=== PATIENT | male | born 1935 | race Caucasian/White ===

== ENCOUNTER 2020-08-01 13:48 | Inpatient (IN) | payer MEDICARE, BC ==
--- NOTE | 2020-08-01 14:33 | ED ---
General Adult HPI - General Chief complaint: Dizziness Stated complaint: Vertigo Time Seen by Provider: 08/01/20 14:18 Source: patient, EMS Mode of arrival: EMS Limitations: no limitations - History of Present Illness Initial comments: Dictation was produced using [employer] dictation software. please excuse any grammatical, word or spelling errors. This patient was cared for during a federal and state declared state of emergency secondary to Covid 19 Chief Complaint: 84-year-old male transferred from [place] for persistent dizziness History of Present Illness: 84-year-old male is transferred via EMS from [facility] for persistent vertigo. Patient states that he woke this morning with some is dizziness that he was able to do his morning routine. Patient has multiple comorbid diabetes, GERD and dyslipidemia. Denies any history of CVA. Patient reports never having express anything like this before. Denies any focal neurologic deficits to his extremities. At [place] he had extensive workup performed including laboratory evaluation, CT and CT angios. Patient's labs and imaging studies mostly unremarkable. He was treated with Antivert and Xanax with minimal relief. The ROS documented in this emergency department record has been reviewed and confirmed by me. Those systems with pertinent positive or negative responses have been documented in the HPI. All other systems are other negative and/or noncontributory. PHYSICAL EXAM: General Impression: Alert and oriented x3, not in acute distress HEENT: Normocephalic atraumatic, extra-ocular movements intact, pupils equal and reactive to light bilaterally, mucous membranes moist. Cardiovascular: Heart regular rate and rhythm Chest: Able to complete full sentences, no retractions, no tachypnea Abdomen: abdomen soft, non-tender, non-distended, no organomegaly Musculoskeletal: Pulses present and equal in all extremities, no peripheral edema Motor: no focal deficits noted Neurological: CN II-XII grossly intact, no focal motor or sensory deficits noted, able to stand however seems to have a predilection to fall towards the right. Patient has right beating nystagmus with fast phase to the right with right lateral gaze. No test askew, negative head impulse test, able to stand however a little gait ataxic Skin: Intact with no visualized rashes Psych: Normal affect and mood ED course: 84-year-old male presents with intractable vertigo. All signs upon arrival are within acceptable limits. Transferred documentation was reviewed. Case is discussed with Dr. Hayden willing to accept patients care for admission. Neurology will be consulted. Review of Systems ROS Statement: Those systems with pertinent positive or pertinent negative responses have been documented in the HPI. ROS Other: All systems not noted in ROS Statement are negative. Past Medical History Past Medical History: Diabetes Mellitus, GERD/Reflux, Hyperlipidemia History of Any Multi-Drug Resistant Organisms: None Reported Past Surgical History: Back Surgery Additional Past Surgical History / Comment(s): Esophagus sx 2000 Past Psychological History: Anxiety, Depression Smoking Status: Never smoker Past Alcohol Use History: None Reported Past Drug Use History: None Reported General Exam Limitations: no limitations Course Vital Signs 08/01/20 14:03 Temperature 98.3 F Pulse Rate 59 L Respiratory 16 Rate Blood Pressure 121/68 O2 Sat by Pulse 99 Oximetry Disposition Clinical Impression: Vertigo Disposition: ADMITTED IP TO THIS HOSP Condition: Fair Referrals: Glenn Loyn NPC [Primary Care Provider] - 1-2 days Decision Time: 14:52
[2020-08-01] MEDS ORDERED: ACETAMINOPHEN TAB 325 MG TAB PO PRN ×2 (14:47→16:59)
[2020-08-01] MEDS ORDERED: ONDANSETRON 4 MG/2 ML VIAL IVP PRN ×2 (14:47→16:59)
[2020-08-01] MEDS ORDERED: NALOXONE 0.4 MG/ML 1 ML VIAL IV PRN (14:47)
[2020-08-01] MEDS ORDERED: SODIUM CHLORIDE 0.9% 1,000 ML IV SCH (15:00)
[2020-08-01 16:45] LABS: Glucose,Whole Blood 120 mg/dL (75-99)
[2020-08-01] MEDS ORDERED: MECLIZINE 25 MG TAB PO PRN (17:05)
--- NOTE | 2020-08-01 17:11 | P.HPIM ---
History of Present Illness H&P Date: 08/01/20 Chief Complaint: Dizziness This is a 84-year-old male with no significant past medical history will presented to an outside emergency room in [place] with worsening dizziness. Patient said that his symptoms started this morning around 7 AM when he was trying to get out of bed and start feeling dizzy and felt that the room is spinning around him. He laid back in bed and felt better but then when he tried to get up again his symptoms recurred. He described the feeling as the room is spinning around him and being dizzy and probably about to lose balance. Patient said that he tried himself downstairs and then called EMS. He presented to the emergency room in [place] where he underwent computed tomography scan of the head without contrast and CT angiogram of the head and neck there were both unremarkable for any acute findings. His lab work was within acceptable range. Patient was given a dose of meclizine and a dose of Ativan with minimal relief. He was transferred to our emergency room for neurology consultation. Patient otherwise denies any other symptoms. He denies any chest pain or palpitation. No diaphoresis or nausea. No similar symptoms in the past. 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 He reports eating and drinking normally at home and denies feeling dehydrated. He denies any flulike symptoms. No headache or vision change. No numbness or tingling anywhere. Review of Systems Review of system: 14 points review of systems were obtained and were negative except to what were mentioned in the HPI. Past Medical History Past Medical History: Diabetes Mellitus, GERD/Reflux, Hyperlipidemia History of Any Multi-Drug Resistant Organisms: None Reported Past Surgical History: Back Surgery Additional Past Surgical History / Comment(s): Esophagus sx 1999 Past Psychological History: Anxiety, Depression Smoking Status: Never smoker Past Alcohol Use History: None Reported Past Drug Use History: None Reported Medications and Allergies Home Medications Medication Instructions Recorded Confirmed Type Aspirin EC [Ecotrin Low Dose] 81 mg PO DAILY 08/01/20 08/01/20 History Nitroglycerin Sl Tabs [Nitrostat] 0.4 mg SUBLINGUAL Q5M PRN 08/01/20 08/01/20 History Oxybutynin Xl [Ditropan Xl] 5 mg PO DAILY 08/01/20 08/01/20 History Simvastatin [Zocor] 20 mg PO DAILY 08/01/20 08/01/20 History metFORMIN HCL 500 mg PO BID 08/01/20 08/01/20 History Allergies Allergy/AdvReac Type Severity Reaction Status Date / Time No Known Allergies Allergy Verified 08/01/20 15:09 Physical Exam Vitals: Vital Signs Temp Pulse Pulse Resp BP BP Pulse Ox 08/01/20 16:03 97.5 F L 50 L 16 123/87 98 08/01/20 15:44 98.2 F 53 L 16 138/78 99 08/01/20 15:13 98.1 F 53 L 14 142/88 100 08/01/20 14:03 98.3 F 59 L 16 121/68 99 Intake and Output 08/01/20 08/01/20 08/01/20 06:59 14:59 22:59 Output Total 300 Balance -300 Output: Urine 300 Other: Weight 63.503 kg General: The patient is awake and alert, in no distress Eye: there is normal conjunctiva bilaterally. Neck: The neck is supple, there is no JVD. Cardiovascular: Normal S1-S2, no S3-S4, no murmurs. Respiratory: Lungs clear to auscultation bilaterally Gastrointestinal: Abdomen is soft, nontender Musculoskeletal: There is no pedal edema. Neurological:. Speech is normal. Skin: Skin is warm and dry Results Labs: Abnormal Lab Results - Last 24 Hours (Table) 08/01/20 Range/Units 16:43 POC Glucose (mg/dL) 120 H (75-99) mg/dL Assessment and Plan Assessment: 1. Dizziness/vertigo, I would check orthostatic blood pressure. Discontinue Ditropan. Computed tomography scan of the head and computed tomography angiogram of the head and neck at the [facility] emergency room were both normal. Continue meclizine as needed. Neurology consulted by ER. Continue fall precaution. 2. Sinus bradycardia, patient was noted to have a heart rate of 40 on sociology faculty member. He denies any cardiac history. I would obtain an echocardiogram. Check thyroid function test. Consult cardiology for further evaluation. 3. Hyperlipidemia: On Zocor at home Today, I reviewed his lab work results from [place], CBC and BMP within normal range. Continue IV fluid hydration with normal saline at 75 mL per hour.
--- NOTE | 2020-08-01 18:08 | P.CNNES ---
History of Present Illness Consult date: 08/01/20 Requesting physician: Charanjit Rodríguez Reason for Consult: persistent vertigo History of Present Illness: This is an 84-year-old gentleman with medical history of dyslipidemia, diabetes, bilateral rotator cuff injury who was transferred from the [facility] for persistent vertigo. Patient states that he woke up this morning at 7am and tried to get out of bed and felt the "world is spining around him". He said he crawled out of bed and avoided walking. He said when he rested he felt better. He denies off diplopia, ringing in the ears, focal weakness, any sensory loss or visual disturbance. He denies of any difficulty getting her his words out or difficulty swallowing. He felt like when he gets up he is a swaying towards the right. He denies of any fever or any recent falls. He denied any similar episodes like this before. Denies of any history of strokes in the past. He does have chronic hearing loss for the last 34 years and has hearing aids. He was treated with Antivert and Xanax over at [facility] without any resolution She stated that he is on aspirin 81 mg at home as well as simvastatin but could not tell me exactly what was the dose. Workup at an outside hospital consisted of: Sinus bradycardia with a borderline first-degree AV block. Lateral ST changes are nonspecific. Ventricular rate is 54. CT of the head was reported as no evidence of acute intracranial abnormality. Nonspecific white matter changes and volume loss as described. There is a strong clinical concern for acute intracranial abnormality. MRI examination of the brain that should be considered for further evaluation. However, there are no deficits on neurological exam, then follow-up imaging that could be considered on a nonemergent outpatient basis as clinically warranted. White blood cell as 6.5 sodium was 137 potassium was 4.3, chloride is 103. BUN is 14, creatinine is 1.0. Glucose serum was 170. Again the patient was given the meclizine 25 mg once and all fours 0.25 mg once as well as he received the normal saline 500 mL once without any improvement. Review of Systems Review of system: The 12 point system was reviewed and apparent positive and negative per HPI. Past Medical History Past Medical History: Diabetes Mellitus, GERD/Reflux, Hyperlipidemia History of Any Multi-Drug Resistant Organisms: None Reported Past Surgical History: Back Surgery Additional Past Surgical History / Comment(s): Esophagus sx 1999 Past Psychological History: Anxiety, Depression Smoking Status: Never smoker Past Alcohol Use History: None Reported Past Drug Use History: None Reported Medications and Allergies Home Medications Medication Instructions Recorded Confirmed Type Aspirin EC [Ecotrin Low Dose] 81 mg PO DAILY 08/01/20 08/01/20 History Nitroglycerin Sl Tabs [Nitrostat] 0.4 mg SUBLINGUAL Q5M PRN 08/01/20 08/01/20 History Oxybutynin Xl [Ditropan Xl] 5 mg PO DAILY 08/01/20 08/01/20 History Simvastatin [Zocor] 20 mg PO DAILY 08/01/20 08/01/20 History metFORMIN HCL 500 mg PO BID 08/01/20 08/01/20 History Allergies Allergy/AdvReac Type Severity Reaction Status Date / Time No Known Allergies Allergy Verified 08/01/20 15:09 Physical Examination - Vital Signs Vital Signs: Vital Signs Temp Pulse Pulse Resp BP BP Pulse Ox 08/01/20 16:03 97.5 F L 50 L 16 123/87 98 08/01/20 15:44 98.2 F 53 L 16 138/78 99 08/01/20 15:13 98.1 F 53 L 14 142/88 100 08/01/20 14:03 98.3 F 59 L 16 121/68 99 Intake and Output 08/01/20 08/01/20 08/01/20 06:59 14:59 22:59 Other: Weight 63.503 kg GENERAL: The patient is lying in bed and is not in acute distress. CHEST: The heart rate is regular rate rhythm. No murmurs to auscultation. No carotid bruit bilaterally. LUNG: Clear to auscultation bilaterally no wheezing noted throughout. Not labored breathing. ABDOMEN/GI: Bowel sounds present in all 4 quadrants. No tenderness to palpation throughout. NEUROLOGICAL: Higher mental function: The patient is awake, alert, oriented to self, place and time. Patient is following commands. No aphasia and no neglect. Cranial nerves: The pupils are round, equal and reactive to light and accommodation. Visual alan are full to confrontation throughout. Extraocular movement is intact no nystagmus is noted. Facial sensation is normal to touch throughout. The facial strength is normal throughout. Hearing is decreased bilaterally to hand rub (chronic per patient). Tongue is midline and moved [id number] without any difficulty. No dysarthria is noted. Motor: Was attempted but patient felt dizzy. The strength is 5 over 5 throughout except proximal bilateral upper extremity was limited because of pain in shoulder from rotator tear but no focality noted. Normal tone and bulk. Cerebellum: Normal finger to nose heel to chin bilaterally. Sensation: Sensation is normal to touch throughout. Reflexes (right/left): 2+ throughout except ankles are 1+ bilaterally Plantars are downgoing bilaterally. Assessment and Plan Assessment: This is an 84-year-old gentleman was transferred from outside facility for persistent vertigo. Vertigo seems likely benign positional vertigo or labyrinthitis. Diabetes Dyslipidemia Plan: I will order MRI of the brain to rule out any acute ischemia especially in the peripheral circulation. Continue aspirin 81 mg milligrams daily. Currently the patient was started on Lipitor 10 mg daily by primary team. Primary chief team saw him on Antivert 25 mg 3 times a day when necessary I will cancel the order and place him on 25 mg twice a day scheduled 2-D echo was ordered by the primary team as well as the [facility]. I consulted the physical therapy and occupation therapy. Patient had the CT angiography of the neck and it was reported as no stenosis or occlusion. As well as the patient had CT angiography of the head and there is no occlusion. Therefore there is no need to repeat the the vascular study of the head and neck. The plan was discussed with the patient. Thank you for the consultation. Karthik Santana M.D. Neuro-hospitalist Time with Patient: Greater than 30
[2020-08-01] MEDS: INSULIN ASPART (NovoLOG) 100 UNIT/ML VIAL SQ SCH ×2 (19:03→20:56)
[2020-08-01] MEDS: SODIUM CHLORIDE 0.9% 1,000 ML IV SCH (19:04)
[2020-08-01 20:50] LABS: Glucose,Whole Blood 197 mg/dL (75-99)
[2020-08-01] MEDS: HEPARIN SODIUM,PORCINE 5,000 UNIT/ML 1 ML VIAL SQ SCH (20:56)
[2020-08-01] MEDS: MECLIZINE 25 MG TAB PO SCH (20:57)
[2020-08-02 06:21] LABS: Glucose,Whole Blood 111 mg/dL (75-99)
[2020-08-02] MEDS: SODIUM CHLORIDE 0.9% 1,000 ML IV SCH ×2 (06:50→18:23)
[2020-08-02] MEDS: INSULIN ASPART (NovoLOG) 100 UNIT/ML VIAL SQ SCH ×4 (08:32→21:17)
[2020-08-02] MEDS: MECLIZINE 25 MG TAB PO SCH ×2 (09:10→21:18)
[2020-08-02] MEDS: ASPIRIN 81 MG PO SCH (09:10)
[2020-08-02] MEDS: ATORVASTATIN 10 MG TAB PO SCH (09:10)
[2020-08-02] MEDS: HEPARIN SODIUM,PORCINE 5,000 UNIT/ML 1 ML VIAL SQ SCH ×2 (09:10→21:17)
--- NOTE | 2020-08-02 10:49 | P.CRDCN ---
History of Present Illness Consult date: 08/02/20 Reason for Consult (text): Dizziness Chief complaint: Dizziness History of present illness: This is a pleasant 84-year-old gentleman who follows with Dr. Storey in the [facility] office. He has a known history of diabetes, hypertension, hyperlipidemia, underwent a cardiac catheterization back in 2007, mild coronary artery disease documented at that time. He also has known aortic valve insufficiency. Most recent echocardiogram with Doppler study was performed at the [facility] in May of this year revealed a normal left ventricular systolic function. Moderate aortic regurgitation. Patient presented to [facility] with symptoms of dizziness. According to the patient, he woke up in the morning, tried to sit up in bed to stand and became extremely dizzy to the point where he could not stand up. He states that he lied back down on the bed, tried a few minutes later and the same symptoms persisted. For this reason he went to [facility] for further evaluation and treatment. According to the patient, at these times he feels like the room is spinning around him. He does get mild associated nausea with this. Blood pressure on arrival here 120/60 with a heart rate in the 50s, 99% on room air. Laboratory data from [facility] was reviewed, white blood cell count 6.5, hemoglobin 13.2, platelet count 159 sodium 137, potassium 4.3, BUN 14, creatinine 1.0. Magnesium 1.8, troponin 0.01. The patient was given some Antivert and Xanax at [facility] with minimal relief. His EKG there showed a sinus bradycardia with a first-degree AV block. Past Medical History Past Medical History: Diabetes Mellitus, GERD/Reflux, Hyperlipidemia Additional Past Medical History / Comment(s): sees Dr Aayush Larson in [facility] History of Any Multi-Drug Resistant Organisms: None Reported Past Surgical History: Back Surgery Additional Past Surgical History / Comment(s): Esophagus sx 2000 Past Anesthesia/Blood Transfusion Reactions: No Reported Reaction Past Psychological History: Anxiety, Depression Smoking Status: Never smoker Past Alcohol Use History: None Reported Past Drug Use History: None Reported - Past Family History Mother Family Medical History: Chest Pain / Angina, Myocardial Infarction ([place]) Additional Family Medical History / Comment(s): age 85 Father Family Medical History: Cancer Additional Family Medical History / Comment(s): pancreatic cancer age 90 Medications and Allergies Home Medications Medication Instructions Recorded Confirmed Type Aspirin EC [Ecotrin Low Dose] 81 mg PO DAILY 08/01/20 08/01/20 History Nitroglycerin Sl Tabs [Nitrostat] 0.4 mg SUBLINGUAL Q5M PRN 08/01/20 08/01/20 History Oxybutynin Xl [Ditropan Xl] 5 mg PO DAILY 08/01/20 08/01/20 History Simvastatin [Zocor] 20 mg PO DAILY 08/01/20 08/01/20 History metFORMIN HCL 500 mg PO BID 08/01/20 08/01/20 History Allergies Allergy/AdvReac Type Severity Reaction Status Date / Time No Known Allergies Allergy Verified 08/01/20 15:09 Physical Exam Vitals: Vital Signs Temp Pulse Pulse Pulse Pulse Pulse Resp 08/02/20 08:25 59 L 72 62 08/02/20 08:13 97.5 F L 52 L 16 08/02/20 02:38 97.9 F 50 L 18 08/01/20 21:00 98.1 F 62 16 08/01/20 16:03 97.5 F L 50 L 16 08/01/20 16:00 16 08/01/20 15:44 98.2 F 53 L 16 08/01/20 15:13 98.1 F 53 L 14 08/01/20 14:03 98.3 F 59 L 16 BP BP BP BP BP Pulse Ox 08/02/20 08:25 127/65 128/70 106/58 08/02/20 08:13 114/69 98 08/02/20 02:38 111/78 97 08/01/20 21:00 113/67 96 08/01/20 16:03 123/87 98 08/01/20 16:00 08/01/20 15:44 138/78 99 08/01/20 15:13 142/88 100 08/01/20 14:03 121/68 99 Intake and Output 08/01/20 08/02/20 08/02/20 22:59 06:59 14:59 Intake Total 200 Output Total 550 200 200 Balance -350 -200 -200 Intake: Oral 200 Output: Urine 550 200 200 Other: Voiding Method Urinal Urinal Weight 63.503 kg PHYSICAL EXAMINATION: GENERAL: 84-year-old gentleman in no acute distress at the time of my examination HEENT: Head is atraumatic, normocephalic. Pupils equal, round. Sclera anicteric. Conjunctiva are clear. Mucous membranes of the mouth are moist. Neck is supple. There is no elevated jugular venous pressure. No carotid bruit is heard. HEART EXAMINATION: Heart S1, S2 normal. No murmur or gallop heard. CHEST EXAMINATION: Lungs are clear to auscultation and precussion. No chest wall tenderness is noted on palpation or with deep breathing. ABDOMEN: Soft, nontender. Bowel sounds are heard. No organomegaly noted. EXTREMITIES: 2+ peripheral pulses with no evidence of peripheral edema and no calf tenderness noted. NEUROLOGIC patient is awake, alert and oriented 3 . Results Current Medications Generic Name Dose Route Start Last Admin Trade Name Freq PRN Reason Stop Dose Admin Acetaminophen 650 mg 08/01/20 14:47 Acetaminophen Tab 325 Mg Tab PO Q6HR PRN Mild Pain or Fever > 100.5 Acetaminophen 650 mg 08/01/20 16:59 Acetaminophen Tab 325 Mg Tab PO Q6HR PRN Fever and/ or Mild Pain Aspirin 81 mg 08/02/20 09:00 08/02/20 09:10 Aspirin 81 Mg PO 81 mg DAILY SAMANTHA Administration Atorvastatin Calcium 10 mg 08/02/20 09:00 08/02/20 09:10 Atorvastatin 10 Mg Tab PO 10 mg DAILY SAMANTHA Administration Heparin Sodium (Porcine) 5,000 unit 08/01/20 21:00 08/02/20 09:10 Heparin Sodium,Porcine 5,000 Unit/Ml 1 Ml Vial SQ 5,000 unit Q12HR SAMANTHA Administration Sodium Chloride 1,000 mls @ 75 mls/hr 08/01/20 17:00 08/02/20 06:50 Saline 0.9% IV 75 mls/hr .[id number] SAMANTHA Administration Insulin Aspart 0 unit 08/01/20 17:30 08/02/20 08:32 Insulin Aspart (Novolog) 100 Unit/Ml Vial SQ Not Given ACHS SAMANTHA Protocol Meclizine HCl 25 mg 08/01/20 21:00 08/02/20 09:10 Meclizine 25 Mg Tab PO 25 mg BID SAMANTHA Administration Naloxone HCl 0.2 mg 08/01/20 14:47 Naloxone 0.4 Mg/Ml 1 Ml Vial IV Q2M PRN Opioid Reversal Ondansetron HCl 4 mg 08/01/20 16:59 Ondansetron 4 Mg/2 Ml Vial IVP Q6HR PRN Nausea And Vomiting Intake and Output 08/01/20 08/02/20 08/02/20 22:59 06:59 14:59 Intake Total 200 Output Total 550 200 200 Balance -350 -200 -200 Intake: Oral 200 Output: Urine 550 200 200 Other: Voiding Method Urinal Urinal Weight 63.503 kg EKG Interpretations (text) EKG shows a sinus bradycardia with a first-degree AV block Assessment and Plan Plan: Assessment and plan #1 dizziness, suggestive of vertigo. #2 diabetes #3 sinus bradycardia with first-degree AV block, heart rates being maintained in the 50s #4 hypertension #5 hyperlipidemia #6 aortic insufficiency Plan We will check orthostatic heart rate and blood pressure every shift. Obtain an echocardiogram with Doppler study. Continue to monitor for any significant tachycardia or bradycardia arrhythmias. Recommend Antivert as a regular scheduled dose. Further recommendations to follow. DNP note has been reviewed, I agree with a documented findings and plan of care. Patient was seen and examined.
--- NOTE | 2020-08-02 10:54 | MR ---
EXAMINATION TYPE: MR brain wo con DATE OF EXAM: 08/02/2020 COMPARISON: Outside CT brain from yesterday. HISTORY: Stroke: dizziness. Code stroke one day earlier. TECHNIQUE: Multiplanar, multisequence imaging of the brain and brainstem is performed without IV cont rast. FINDINGS: Diffusion weighted images demonstrate no evidence of a recent infarct or other diffusion abnormality. Diffuse ventricular and sulcal prominence. Focal and confluent areas of T2 hyperintensity greatest in the deep and periventricular white matter. There is no worrisome extra-axial fluid collection. Midline structures demonstrate normal morphology. The craniocervical junction appears within normal limits. Normal vascular flow voids are present. Dominant left vertebral artery. Patchy fluid in the i nferior left mastoid air cells. More prominent fluid in the right mastoid air cells. Mild mucosal thi ckening involving ethmoid sinuses bilaterally. The visualized sinuses are otherwise clear and the patti bes are intact. IMPRESSION: 1. No MRI evidence for a recent infarct. 2. Background moderate diffuse cerebral atrophy and advanced chronic small vessel ischemic change. 3. Possible right greater than left mastoiditis, correlate clinically.
[2020-08-02 11:16] LABS: Glucose,Whole Blood 130 mg/dL (75-99)
[2020-08-02 12:37] LABS: Basophils # (A) 0.1 k/uL (0-0.2); Basophils % (A) 1 %; Eosinophils # (A) 0.2 k/uL (0-0.7); Eosinophils % (A) 2 %; HCT 41.8 % (39.0-53.0); HGB 14.1 gm/dL (13.0-17.5); Lymphocytes # (A) 1.3 k/uL (1.0-4.8); Lymphocytes % (A) 17 %; MCH 33.6 pg (25.0-35.0); MCHC 33.7 g/dL (31.0-37.0); Mean Platelet Volume 7.6; Monocytes # (A) 0.4 k/uL (0-1.0); Monocytes % (A) 6 %; Neutrophils # (A) 5.5 k/uL (1.3-7.7); Neutrophils % (A) 73 %; Platelet Count 164 k/uL (150-450); RBC 4.18 m/uL (4.30-5.90); RDW 11.8 % (11.5-15.5); WBC 7.5 k/uL (3.8-10.6)
[2020-08-02 12:49] LABS: ALT 19 U/L (4-49); AST 29 U/L (17-59); African American GFR (CKD) >90 (>60 ml/min/1.73 sqM); Albumin 3.9 g/dL (3.5-5.0); Alkaline Phosphatase 65 U/L (38-126); Anion Gap 5 mmol/L; Blood Urea Nitrogen 14 mg/dL (9-20); Carbon Dioxide 28 mmol/L (22-30); Chloride 103 mmol/L (98-107); Glucose 134 mg/dL (74-99); Magnesium 1.9 mg/dL (1.6-2.3); Non-African American GFR(CKD) 82 (>60 ml/min/1.73 sqM); Potassium 4.5 mmol/L (3.5-5.1); Sodium 136 mmol/L (137-145); Total Bilirubin 1.2 mg/dL (0.2-1.3); Total Protein 6.8 g/dL (6.3-8.2)
--- NOTE | 2020-08-02 15:57 | P.PN ---
Subjective Progress Note Date: 08/02/20 Principal diagnosis: Vertigo Objective - Vital Signs Vital signs: Vital Signs Temp 97.5 F L 08/02/20 08:13 Pulse 62 08/02/20 08:25 Resp 16 08/02/20 08:13 BP 106/58 08/02/20 08:25 Pulse Ox 98 08/02/20 08:13 Intake & Output 08/01/20 08/02/20 08/02/20 18:59 06:59 18:59 Intake Total 200 Output Total 300 450 200 Balance -100 -450 -200 Weight 63.503 kg Intake: Oral 200 Output: Urine 300 450 200 Other: Voiding Method Urinal Urinal - Constitutional General appearance: Present: no acute distress - Respiratory Respiratory: bilateral: CTA - Cardiovascular Rhythm: regular - Gastrointestinal General gastrointestinal: Present: normal bowel sounds - Integumentary Integumentary: Present: normal - Musculoskeletal Musculoskeletal: Present: generalized weakness - Labs CBC & Chem 7: 08/02/20 12:22 08/02/20 12:22 Labs: Abnormal Lab Results - Last 24 Hours (Table) 08/01/20 08/01/20 08/02/20 Range/Units 16:43 20:48 06:20 POC Glucose (mg/dL) 120 H 197 H 111 H (75-99) mg/dL Assessment and Plan (1) Vertigo Narrative/Plan: patient still symptomatic MRI without evidence of posterior stroke, worked with PT/OT will continue to monitor; patient not clinically stable for discharge Current Visit: Yes Status: Acute Code(s): R42 - DIZZINESS AND GIDDINESS SNOMED Code(s): 217590534 (2) Sinus bradycardia Narrative/Plan: asymptomatic appreciate cardiology input echo planned Current Visit: Yes Status: Acute Code(s): R00.1 - BRADYCARDIA, UNSPECIFIED SNOMED Code(s): 11845744 (3) Hyperlipidemia Narrative/Plan: continue statin Current Visit: Yes Status: Acute Code(s): E78.5 - HYPERLIPIDEMIA, UNSPECIFIED SNOMED Code(s): 83483175
[2020-08-02 16:49] LABS: Glucose,Whole Blood 120 mg/dL (75-99)
--- NOTE | 2020-08-02 16:57 | P.PN ---
Subjective Progress Note Date: 08/02/20 Patient was seen at bedside and he stated that he feels 75% better today compared to yesterday. He has not had any nausea, vomiting. He does feel like the room is spinning the mostly with movement but again better today compared to yesterday. Objective - Vital Signs Vital signs: Vital Signs Temp 97.0 F L 08/02/20 15:00 Pulse 69 08/02/20 15:00 Resp 16 08/02/20 15:00 BP 111/57 08/02/20 15:00 Pulse Ox 97 08/02/20 15:00 Intake & Output 08/01/20 08/02/20 08/02/20 18:59 06:59 18:59 Intake Total 200 1560 Output Total 300 450 900 Balance -100 -450 660 Weight 63.503 kg Intake: Intake, IV Titration 600 Amount Sodium Chloride 0.9% 1, 600 000 ml @ 75 mls/hr IV . [id number] [facility] Rx#:[id number] Oral 200 960 Output: Urine 300 450 900 Other: Voiding Method Urinal Urinal - Exam GENERAL: The patient is lying in bed and is not in acute distress. CHEST: The heart rate is regular rate rhythm. No murmurs to auscultation. No carotid bruit bilaterally. NEUROLOGICAL: Higher mental function: The patient is awake, alert, oriented to self, place and time. Patient is following commands. No aphasia and no neglect. Cranial nerves: The pupils are round, equal and reactive to light and acco mmodation. Visual alan are full to confrontation throughout. Extraocular movement is intact no nystagmus is noted. Facial sensation is normal to touch throughout. The facial strength is normal throughout. Hearing is decreased bilaterally to hand rub (chronic per patient). Tongue is midline and moved [id number] without any difficulty. No dysarthria is noted. Motor: W The strength is 5 over 5 throughout except proximal bilateral upper extremity was limited because of pain in shoulder from rotator tear but no focality noted. Normal tone and bulk. Cerebellum: Normal finger to nose bilaterally. Sensation: Sensation is normal to touch throughout. Reflexes (right/left): 2+ throughout except ankles are 1+ bilaterally Plantars are downgoing bilaterally. - Labs CBC & Chem 7: 08/02/20 12:22 08/02/20 12:22 Labs: Abnormal Lab Results - Last 24 Hours (Table) 08/01/20 08/02/20 08/02/20 Range/Units 20:48 06:20 11:15 RBC (4.30-5.90) m/uL Sodium (137-145) mmol/L Glucose (74-99) mg/dL POC Glucose (mg/dL) 197 H 111 H 130 H (75-99) mg/dL 08/02/20 08/02/20 08/02/20 Range/Units 12:22 12:22 16:48 RBC 4.18 L (4.30-5.90) m/uL Sodium 136 L (137-145) mmol/L Glucose 134 H (74-99) mg/dL POC Glucose (mg/dL) 120 H (75-99) mg/dL Assessment and Plan Assessment: This is an 84-year-old gentleman was transferred from outside facility for persistent vertigo. Acute Vertigo seems likely benign positional vertigo or labyrinthitis. Diabetes Dyslipidemia Plan: MRI of the brain was ordered to rule out any peripheral circulation stroke. MRI of the brain was reported as no MRI evidence for recent infarct. Background moderate diffuse cerebral atrophy and advanced chronic small vessel ischemic change. Possible right greater than left mastoiditis, correlate clinically. Continue aspirin 81 mg milligrams daily. Currently on Lipitor 10 mg daily by primary team. Continue Antivert 25 mg 2 times a day scheduled TSH: 2.23 which is within normal limits. Continue physical therapy and occupation therapy. Patient had the CT angiography of the neck and it was reported as no stenosis or occlusion. As well as the patient had CT angiography of the head and there is no occlusion. Therefore there is no need to repeat the the vascular study of the head and neck. The plan was discussed with the patient. If the patient remains to improve by tomorrow, then he is clear for discharge tomorrow home from a neurology perspective. Patient needs to follow-up with the ENT as outpatient within 2 weeks upon discharge. Karthik Santana M.D. Neuro-hospitalist Time with Patient: Less than 30
[2020-08-02] MEDS ORDERED: CALCIUM CARBONATE 500 MG CHEWABLE PO PRN (20:38)
[2020-08-02 21:17] LABS: Glucose,Whole Blood 98 mg/dL (75-99)
[2020-08-03 04:12] VITALS: TEMP 98.2
[2020-08-03 06:49] LABS: Glucose,Whole Blood 120 mg/dL (75-99)
[2020-08-03] MEDS: INSULIN ASPART (NovoLOG) 100 UNIT/ML VIAL SQ SCH ×2 (06:55→12:36)
[2020-08-03 07:44] VITALS: BP 124/69; PULSE 77; RESP 14
[2020-08-03] MEDS: ASPIRIN 81 MG PO SCH (10:01)
[2020-08-03] MEDS: MECLIZINE 25 MG TAB PO SCH (10:01)
[2020-08-03] MEDS: ATORVASTATIN 10 MG TAB PO SCH (10:01)
[2020-08-03] MEDS: SODIUM CHLORIDE 0.9% 1,000 ML IV SCH (10:01)
[2020-08-03] MEDS: HEPARIN SODIUM,PORCINE 5,000 UNIT/ML 1 ML VIAL SQ SCH (10:01)
--- NOTE | 2020-08-03 10:36 | ECHOF ---
Referral Reason:Bradycardia, dizziness MEASUREMENTS -------- HEIGHT: 175.3 cm WEIGHT: 63.5 kg BP: 117/62 IVSd: 1.3 cm (0.6 - 1.1) LVIDd: 3.4 cm (3.9 - 5.3) LVPWd: 1.2 cm (0.6 - 1.1) EDV(Teich): 47 ml IVSs: 1.3 cm LVIDs: 2.6 cm LVPWs: 1.5 cm %IVS Thck: -4 % ESV(Teich): 24 ml EF(Teich): 49 % %FS: 24 % SV(Teich): 23 ml RVIDd: 2.9 cm (< 3.3) LALs A4C: 6.5 cm LAAs A4C: 21.0 cm LAESV A-L A4C: 58 ml LAESV MOD A4C: 59 ml LALs A2C: 6.0 cm LAAs A2C: 17.8 cm LAESV A-L A2C: 45 ml LAESV MOD A2C: 43 ml LAESV(A-L): 53 ml LAESV Index (A-L): 29.79 ml/m Ao Diam: 3.4 cm (2.0 - 3.7) AV Cusp: 2.2 cm (1.5 - 2.6) EPSS: 0.4 cm MV E Joseph: 0.86 m/s MV DecT: 274 ms MV Dec Titus: 3.1 m/s MV A Joseph: 0.85 m/s MV E/A Ratio: 1.02 MV PHT: 79 ms LVOT Vmax: 0.86 m/s LVOT maxP.97 mmHg AV Vmax: 1.17 m/s AV maxP.43 mmHg AR Vmax: 4.07 m/s AR maxP.42 mmHg AR PHT: 668 ms AR Dec Time: 2305 ms AR Dec Titus: 1.8 m/s TR Vmax: 2.37 m/s TR maxP.46 mmHg RAP: 5.00 mmHg RVSP: 27.46 mmHg MV EF SLOPE: 61.55 mm/s (70 - 150) MV EXCURSION: 14.05 mm (> 18.000) FINDINGS -------- Resting bradycardia (HR<60bpm). This was a technically adequate study. The left ventricular size is normal. There is mild concentric left ventricular hypertrophy. Overa ll left ventricular systolic function is low-normal with, an EF between 50 - 55 %. The diastolic fi lling pattern is normal for the age of the patient 9.92. The right ventricle is normal in size. LA is midly dilated 29-33ml/m2. The right atrial size is normal. Interatrial and interventricular septum intact. The aortic valve is trileaflet and appears structurally normal. There is mild aortic valve sclerosi s. There is jbmw-[id number]-[id number] aortic regurgitation. Mild mitral regurgitation is present. Mild tricuspid regurgitation present. There is no evidence of pulmonary hypertension. The right v entricular systolic pressure, as measured by Doppler, is 27.46mmHg. There is no pulmonic regurgitation present. The aortic root size is normal. IVC Not well visulized. There is no pericardial effusion. CONCLUSIONS -------- 1. The left ventricular size is normal. 2. There is mild concentric left ventricular hypertrophy. 3. Overall left ventricular systolic function is low-normal with, an EF between 50 - 55 %. 4. The diastolic filling pattern is normal for the age of the patient 9.92 5. LA is midly dilated 29-33ml/m2. 6. There is mild aortic valve sclerosis. 7. There is tjty-pg-mhywauon aortic regurgitation. 8. Mild mitral regurgitation is present. 9. Mild tricuspid regurgitation present. FRONT DESK OFFICER: Raegan Jimenez RDCS
--- NOTE | 2020-08-03 10:55 | P.PN ---
Subjective Progress Note Date: 08/03/20 This is a pleasant 84-year-old gentleman who follows with Dr. Storey in the [facility] office. He has a known history of diabetes, hypertension, hyperlipidemia, underwent a cardiac catheterization back in 2007, mild coronary artery disease documented at that time. He also has known aortic valve insufficiency. Most recent echocardiogram with Doppler study was performed at the [facility] in May of this year revealed a normal left ventricular systolic function. Moderate aortic regurgitation. Patient presented to [facility] with symptoms of dizziness. According to the patient, he woke up in the morning, tried to sit up in bed to stand and became extremely dizzy to the point where he could not stand up. He states that he lied back down on the bed, tried a few minutes later and the same symptoms persisted. For this reason he went to [facility] for further evaluation and treatment. According to the patient, at these times he feels like the room is spinning around him. He does get mild associated nausea with this. Blood pressure on arrival here 120/60 with a heart rate in the 50s, 99% on room air. Laboratory data from [facility] was reviewed, white blood cell count 6.5, hemoglobin 13.2, platelet count 159 sodium 137, potassium 4.3, BUN 14 , creatinine 1.0. Magnesium 1.8, troponin 0.01. The patient was given some Antivert and Xanax at [facility] with minimal relief. His EKG there showed a sinus bradycardia with a first-degree AV block. 08/03/2020 Patient seen and examined this morning, he does feel that his dizziness is somewhat improved. This could be secondary to the addition of Antivert. Echocardiogram with Doppler study revealed a normal LV function, moderate aortic regurg. No evidence of orthostatic hypotension. Blood pressure this morning 124/60 with a heart rate of 70, 96% on room air. Patient is noted occasionally on the monitor to have pauses of 1-1/2-2 seconds. Objective - Vital Signs Vital signs: Vital Signs Temp 98.2 F 08/03/20 07:43 Pulse 77 08/03/20 07:43 Resp 14 08/03/20 07:43 BP 124/69 08/03/20 07:43 Pulse Ox 96 08/03/20 07:43 Intake & Output 08/02/20 08/03/20 08/03/20 18:59 06:59 18:59 Intake Total 1560 100 Output Total 900 2675 Balance 660 -2575 Intake: Intake, IV Titration 600 Amount Sodium Chloride 0.9% 1, 600 000 ml @ 75 mls/hr IV . [id number] [facility] Rx#:[id number] Oral 960 100 Output: Urine 900 2675 Other: Voiding Method Urinal Urinal # Voids 6 1 - Exam PHYSICAL EXAMINATION: GENERAL: 87-year-old female in no acute distress at the time of my examination HEENT: Head is atraumatic, normocephalic. Pupils equal, round. Sclera anicteric. Conjunctiva are clear. Mucous membranes of the mouth are moist. Neck is supple. There is no elevated jugular venous pressure. No carotid bruit is heard. HEART EXAMINATION: Heart S1, S2 normal. No murmur or gallop heard. CHEST EXAMINATION: Lungs are clear to auscultation and precussion. No chest wall tenderness is noted on palpation or with deep breathing. ABDOMEN: Soft, nontender. Bowel sounds are heard. No organomegaly noted. EXTREMITIES: 2+ peripheral pulses with no evidence of peripheral edema and no calf tenderness noted. NEUROLOGIC patient is awake, alert and oriented 3 . - Labs CBC & Chem 7: 08/02/20 12:22 08/02/20 12:22 Labs: Abnormal Lab Results - Last 24 Hours (Table) 08/02/20 08/02/20 08/02/20 Range/Units 11:15 12:22 12:22 RBC 4.18 L (4.30-5.90) m/uL Sodium 136 L (137-145) mmol/L Glucose 134 H (74-99) mg/dL POC Glucose (mg/dL) 130 H (75-99) mg/dL 08/02/20 08/03/20 Range/Units 16:48 06:47 RBC (4.30-5.90) m/uL Sodium (137-145) mmol/L Glucose (74-99) mg/dL POC Glucose (mg/dL) 120 H 120 H (75-99) mg/dL Assessment and Plan Plan: Assessment and plan #1 dizziness, suggestive of vertigo. #2 diabetes #3 sinus bradycardia with first-degree AV block, heart rates being maintained in the 50s #4 hypertension #5 hyperlipidemia #6 aortic insufficiency Plan From cardiology's perspective, patient may be able to be discharged home today. We would recommend that he wear a 30 day event monitor on discharge and continue the twice a day dose of antevert. Follow-up appointment in the office with Dr. Larson and Nancy. DNP note has been reviewed, I agree with a documented findings and plan of care. Patient was seen and examined.
[2020-08-03 12:01] LABS: Glucose,Whole Blood 127 mg/dL (75-99)
--- NOTE | 2020-08-03 15:13 | P.PN ---
Subjective Progress Note Date: 08/03/20 Patient was seen at bedside and he said that his dizziness is resolved. He feels much better today compared that to his initial presentation. Denies any diplopia, weakness, numbness, visual disturbance. Objective - Vital Signs Vital signs: Vital Signs Temp 98.2 F 08/03/20 07:43 Pulse 77 08/03/20 07:43 Resp 14 08/03/20 07:43 BP 124/69 08/03/20 07:43 Pulse Ox 96 08/03/20 07:43 Intake & Output 08/02/20 08/03/20 08/03/20 18:59 06:59 18:59 Intake Total 1560 100 Output Total 900 2675 Balance 660 -2575 Intake: Intake, IV Titration 600 Amount Sodium Chloride 0.9% 1, 600 000 ml @ 75 mls/hr IV . [id number] [facility] Rx#:[id number] Oral 960 100 Output: Urine 900 2675 Other: Voiding Method Urinal Urinal # Voids 6 1 - Exam GENERAL: The patient is lying in bed and is not in acute distress. CHEST: The heart rate is regular rate rhythm. No murmurs to auscultation. No carotid bruit bilaterally. NEUROLOGICAL: Higher mental function: The patient is awake, alert, oriented to self, place and time. Patient is following commands. No aphasia and no neglect. Cranial nerves: The pupils are round, equal and reactive to light and accommodation. Visual alan are full to confrontation throughout. Extraocular movement is intact no nystagmus is noted. Facial sensation is normal to touch throughout. The facial strength is normal throughout. Hearing is decreased bilaterally to hand rub (chronic per patient). Tongue is midline and moved [id number] without any difficulty. No dysarthria is noted. Motor: The strength is 5 over 5 throughout except proximal bilateral upper extr emity was limited because of pain in shoulder from rotator tear but no focality noted. Normal tone and bulk. Cerebellum: Normal finger to nose bilaterally. Sensation: Sensation is normal to touch throughout. Reflexes (right/left): 2+ throughout except ankles are 1+ bilaterally Plantars are downgoing bilaterally. - Labs CBC & Chem 7: 08/02/20 12:22 08/02/20 12:22 Labs: Abnormal Lab Results - Last 24 Hours (Table) 08/02/20 08/03/2008/03/20 Range/Units 16:48 06:47 11:59 POC Glucose (mg/dL) 120 H 120 H 127 H (75-99) mg/dL Assessment and Plan Assessment: This is an 84-year-old gentleman was transferred from outside facility for pers istent vertigo. Acute Vertigo seems likely benign positional vertigo or labyrinthitis---resolved. Diabetes Dyslipidemia Plan: MRI of the brain was ordered to rule out any peripheral circulation stroke. MRI of the brain was reported as no MRI evidence for recent infarct. Background moderate diffuse cerebral atrophy and advanced chronic small vessel ischemic change. Possible right greater than left mastoiditis, correlate clinically. Continue aspirin 81 mg milligrams daily. Currently on Lipitor 10 mg daily by primary team. Continue Antivert 25 mg 2 times a day scheduled TSH: 2.23 which is within normal limits. Continue physical therapy and occupation therapy. Patient had the CT angiography of the neck and it was reported as no stenosis or occlusion. As well as the patient had CT angiography of the head and there is no occlusion. Therefore there is no need to repeat the the vascular study of the head and neck. The plan was discussed with the patient. From the neurology perspective there is no additional workup needed. The patient's symptoms of dizziness has resolved. Patient needs to follow-up with the ENT as outpatient within 2 weeks upon disch argeLeonel Santana M.D. Neuro-hospitalist Time with Patient: Less than 30
--- NOTE | 2020-08-03 22:13 | P.DS ---
Providers Date of admission: 08/02/20 11:45 Expected date of discharge: 08/03/20 Attending physician: Maria A Hayden Consults: 08/01/20 14:26 Consult Physician Routine Consulting Provider: Karthik Santana Consult Reason/Comments: persistent vertigo Do you want consulting provider notified?: Yes 08/01/20 17:01 Consult Physician Routine Consulting Provider: Michael Larson Consult Reason/Comments: Bradycardia, heart rate 40, dizziness Do you want consulting provider notified?: Yes Primary care physician: [facility] Course: Discharge Diagnosis: Vertigo likely benign positional vertigo or labyrinthitis Bradycardia Diabetes mellitus type 2 Dyslipidemia Hospital Course: Patient is an 84-year-old male with a history of diabetes, GERD, and dyslipidemia who presented to an outside emergency department in [place] with dizziness. In the ER he underwent a CT of the head without contrast and CT angiogram of head and neck fold which were unremarkable for any acute findings. Lab work was within acceptable range. His given a dose of meclizine and Ativan and had minimal relief. He was ultimately transferred here for neurology consultation. He was placed in observation. He was seen by neurology who felt it was prudent to rule out posterior circulation stroke. He subsequently underwent an MRI of the brain which did not demonstrate any recent infarct, moderate diffuse cerebral atrophy with advanced chronic small vessel ischemic changes were noted to be present. Possible right greater than left mastoiditis. Echocardiogram showed preserved ejection fraction with mild to moderate tricuspid regurgitation. He is also noted to have bradycardia. He was seen by cardiology. Orthostatics were negative. Cardiology recommended outpatient 30 day Holter monitor and follow up with Dr. Storey. He was continued on Antivert and had significant improvement. By the morning of 08/03 he felt almost back to normal. He was able to sit up and ambulate without difficulty. He was determined stable for discharge home. He will complete a seven-day course of Antivert. He'll follow up with his primary care physician if his symptoms persist after discontinuing Antivert I had suggested ENT follow-up. Patient is in agreement. He was also taken off of oxybutynin. Patient seen and examined at bedside. Dizziness is much improved, no lightheadedness, hematochezia pass out, no chest pain. Vital signs reviewed and stable. General: non toxic, no distress, appears at stated age Derm: warm, dry Head: atraumatic, normocephalic, symmetric Eyes: EOMI, no lid lag, anicteric sclera Mouth: no lip lesion, mucus membranes moist Cardiovascular: S1-S2 bradycardic, no murmur, positive posterior tibial pulse bilateral, Lungs: CTA bilateral, no rhonchi, no rales , no accessory muscle use Abdominal: soft, nontender to palpation, no guarding, no appreciable organomegaly Ext: no gross muscle atrophy, no edema, no contractures Neuro: CN II-XI grossly intact, no focal neuro deficits Psych: Alert, oriented, appropriate affect A total of 25 minutes of time were spent preparing this complex discharge summary . Patient Condition at Discharge: Fair Plan - Discharge Summary New Discharge Prescriptions: New Meclizine [Antivert] 25 mg PO BID #14 tab Continue metFORMIN HCL 500 mg PO BID Simvastatin [Zocor] 20 mg PO DAILY Nitroglycerin Sl Tabs [Nitrostat] 0.4 mg SUBLINGUAL Q5M PRN PRN Reason: Chest Pain Aspirin EC [Ecotrin Low Dose] 81 mg PO DAILY Discontinued Oxybutynin Xl [Ditropan Xl] 5 mg PO DAILY Discharge Medication List Aspirin EC [Ecotrin Low Dose] 81 mg PO DAILY 08/01/20 [History] Nitroglycerin Sl Tabs [Nitrostat] 0.4 mg SUBLINGUAL Q5M PRN 08/01/20 [History] Simvastatin [Zocor] 20 mg PO DAILY 08/01/20 [History] metFORMIN HCL 500 mg PO BID 08/01/20 [History] Meclizine [Antivert] 25 mg PO BID #14 tab 08/03/20 [Rx] Follow up Appointment(s)/Referral(s): Glenn Lyon NPC [REFERRING] - 1-2 days Michael Larson MD [STAFF PHYSICIAN] - 08/19/20 2:00 pm (Follow up with Dr. Larson at the [place] Location as scheduled for you) Patient Instructions/Handouts: Vertigo (GEN) Activity/Diet/Wound Care/Special Instructions: Activity: as tolerated Diet: heart healthy, carb consistent Special Instructions: [facility] to place heart monitor Trial of antivert for 7 days if symptoms reoccur then will need an evaluation by ENT Discharge Disposition: HOME SELF-CARE
== END 2020-08-03 14:44 | disposition home or self-care (01) | DRG 149 ==
LOC: EC 13:48 → 1SOBS 14:47 → OBSVTOIN 08-02 11:45 → 1SOBS 08-02 23:21
PROVIDERS: ADMIT Internal Medicine; ATTEND Internal Medicine
DX: H81.10 Benign paroxysmal vertigo, unspecified ear (principal); E11.9 Type 2 diabetes mellitus without complications; E78.5 Hyperlipidemia, unspecified; F32.9 Major depressive disorder, single episode, unspecified; F41.9 Anxiety disorder, unspecified; H83.09 Labyrinthitis, unspecified ear; I07.1 Rheumatic tricuspid insufficiency; H91.90 Unspecified hearing loss, unspecified ear; I25.10 Atherosclerotic heart disease of native coronary artery without angina pectoris; I10 Essential (primary) hypertension; I35.1 Nonrheumatic aortic (valve) insufficiency; I44.0 Atrioventricular block, first degree; K21.9 Gastro-esophageal reflux disease without esophagitis; Z79.82 Long term (current) use of aspirin; Z79.84 Long term (current) use of oral hypoglycemic drugs; Z79.899 Other long term (current) drug therapy; Z80.0 Family history of malignant neoplasm of digestive organs; Z82.49 Family history of ischemic heart disease and other diseases of the circulatory system
CPT/HCPCS: 70551; 80053; 83735; 84443; 85025; 93306; 96360; 99284

== ENCOUNTER 2021-04-30 00:47 | Inpatient (IN) | payer MEDICARE, BC ==
[2021-04-30] MEDS ORDERED: NALOXONE 0.4 MG/ML 1 ML VIAL IV PRN ×2 (01:18→13:57)
--- NOTE | 2021-04-30 01:18 | ED ---
Abdominal Pain HPI - General Stated Complaint: Abd Pain Time Seen by Provider: 04/30/21 00:51 Source: patient, EMS, RN notes reviewed Mode of arrival: EMS Limitations: no limitations - History of Present Illness Initial Comments: Patient is an 85-year-old male that presents to the emergency room [place]. He notes that he is having abdominal pain for the past several days. He notes that he was scanned at [place]. Scan came back showing gastric outlet obstruction. Labs were unremarkable. Labs were resulted at 8 PM on 04/29/2021 patient didn't come with a disc of his computed tomography scan. Patient does follow Dr. Larson for GI issues. NG tube was placed. Patient denied any other complaints or issues at the time of exam. He denied any chest pain shortness of breath headache fever fatigue chills. - Related Data Home Medications Medication Instructions Recorded Confirmed Aspirin EC [Ecotrin Low Dose] 81 mg PO DAILY 08/01/20 08/01/20 Nitroglycerin Sl Tabs [Nitrostat] 0.4 mg SUBLINGUAL Q5M PRN 08/01/20 08/01/20 Simvastatin [Zocor] 20 mg PO DAILY 08/01/20 08/01/20 metFORMIN HCL [Glucophage] 500 mg PO BID 08/01/20 08/01/20 Previous Rx's Medication Instructions Recorded Meclizine [Antivert] 25 mg PO BID #14 tab 08/03/20 Allergies Allergy/AdvReac Type Severity Reaction Status Date / Time No Known Allergies Allergy Verified 04/30/21 01:08 Review of Systems ROS Statement: Those systems with pertinent positive or pertinent negative responses have been documented in the HPI. ROS Other: All systems not noted in ROS Statement are negative. Past Medical History Past Medical History: Diabetes Mellitus, GERD/Reflux, Hyperlipidemia Additional Past Medical History / Comment(s): sees Dr Aayush Larson in [place] History of Any Multi-Drug Resistant Organisms: None Reported Past Surgical History: Back Surgery Additional Past Surgical History / Comment(s): Esophagus sx 2000 Past Anesthesia/Blood Transfusion Reactions: No Reported Reaction Past Psychological History: Anxiety, Depression Smoking Status: Never smoker Past Alcohol Use History: None Reported Past Drug Use History: None Reported - Past Family History Mother Family Medical History: Chest Pain / Angina, Myocardial Infarction (ND) Additional Family Medical History / Comment(s): age 85 Father Family Medical History: Cancer Additional Family Medical History / Comment(s): pancreatic cancer age 90 General Exam Limitations: no limitations General appearance: alert, in no apparent distress, other (NG tube in place) Head exam: Present: atraumatic, normocephalic, normal inspection Eye exam: Present: normal appearance, PERRL, EOMI. Absent: scleral icterus, conjunctival injection, periorbital swelling Neck exam: Present: normal inspection Respiratory exam: Present: normal lung sounds bilaterally. Absent: respiratory distress, wheezes, rales, rhonchi, stridor Cardiovascular Exam: Present: regular rate, normal rhythm, normal heart sounds. Absent: systolic murmur, diastolic murmur, rubs, gallop, clicks GI/Abdominal exam: Present: soft, diminished bowel sounds. Absent: distended, tenderness, guarding, rebound, rigid Extremities exam: Present: normal inspection, full ROM, normal capillary refill. Absent: tenderness, pedal edema, joint swelling, calf tenderness Neurological exam: Present: alert, oriented X3 Psychiatric exam: Present: normal affect, normal mood Skin exam: Present: warm, dry, intact, normal color. Absent: rash Course Vital Signs 04/30/21 00:55 Temperature 98.8 F Pulse Rate 87 Respiratory 16 Rate Blood Pressure 169/98 O2 Sat by Pulse 96 Oximetry Medical Decision Making - Medical Decision Making 85-year-old male transferred from [facility] for gastric outlet obstruction. Patient follows with Dr. ribeiro. Case discussed with Dr. Montes, patient will be admitted. Labs from [place] are as follows sodium 137, potassium 3.7 chloride 94, CO2 23, anion gap 20, lactic acid 4.0, white blood cells 8.5 hemoglobin 14.9 area Computed tomography scan of the abdomen and pelvis shows interval increase in marked fluid-filled distention of the stomach consider gastric L obstruction versus gastroparesis. Persistent markedly large hiatal hernia. Dr. Clarke was consulted and will accept the admit with Dr. larson on consult. Disposition Clinical Impression: Gastric outlet obstruction Disposition: ADMITTED IP TO THIS [facility] Condition: Stable Referrals: Josue Salter MD [Primary Care Provider] - 1-2 days Time of Disposition: 01:18
[2021-04-30] MEDS ORDERED: PIPERACILLIN-TAZOBACTAM 3.375 GM in SODIUM CHLORIDE 0.9% 100 ML IVPB ONE (01:30)
[2021-04-30] MEDS ORDERED: SODIUM CHLORIDE 0.9% 1,000 ML IV SCH (01:30)
--- NOTE | 2021-04-30 03:04 | XR ---
EXAMINATION TYPE: XR chest 1V portable DATE OF EXAM: 04/30/2021 COMPARISON: 06/02/2013 HISTORY: Check tube placement TECHNIQUE: Single view FINDINGS: There is nasogastric tube looped on itself in the mid esophagus at the level of the calvin. There is large hiatal hernia. There is no sign of heart failure. There is no pulmonary consolidation. Heart size is normal. IMPRESSION: NG tube is looped on itself in the esophagus. Hiatal hernia noted. Heart and lungs not significantly different than old exam.
[2021-04-30] MEDS ORDERED: MORPHINE SULFATE 4 MG/ML SYRINGE IVP PRN (04:02)
[2021-04-30] MEDS ORDERED: MORPHINE SULFATE 4 MG/ML SYRINGE IVP STA (04:02)
[2021-04-30] MEDS ORDERED: LORazepam 2 MG/ML INJ IV STA (04:02)
[2021-04-30] MEDS ORDERED: ONDANSETRON 4 MG/2 ML VIAL IVP PRN (04:02)
[2021-04-30] MEDS ORDERED: LORazepam 2 MG/ML INJ IV PRN (04:02)
[2021-04-30] MEDS ORDERED: PANTOPRAZOLE 40 MG/10 ML VIAL IVP STA (04:02)
[2021-04-30] MEDS ORDERED: PANTOPRAZOLE 40 MG/10 ML VIAL IVP SCH (09:00)
--- NOTE | 2021-04-30 13:56 | P.HPIM ---
History of Present Illness H&P Date: 04/30/21 Chief Complaint: Vomiting History of presenting complaint: This is a pleasant 85-year-old patient who was transferred from [facility]. History is obtained by the son and [id number] at the bedside. Chronic stable medical conditions include BPH, hyperlipidemia, GERD, prostatitis, mild forgetfulness, hiatal hernia. Patient has been having vomiting on and off for about a week. Getting better in between. Yesterday started having persistent vomiting. Was taken down to the [facility]. Lab work showed amylase of 155, lipase 85, BUN 13, creatinine 1.1. Bilirubin was 2. AST and he was normal. Computed tomography scan of the abdomen showed a fluid-filled distended stomach. There was no obvious obstruction noted. Differential was gastroparesis versus arterial obstruction. White count was normal at 8.5. Patient normally has a bowel movement daily. Has some abdominal discomfort. No pain. Review of systems: GEN.: Tired EYES: None HEENT: None NECK: None RESPIRATORY: None CARDIOVASCULAR: None GASTROINTESTINAL: As above GENITOURINARY: None MUSCULOSKELETAL: Some joint pains LYMPHATICS: None HEMATOLOGICAL: None PSYCHIATRY: Slightly forgetful] NEUROLOGICAL: May use a walker sometimes Past medical history to include: BPH, hyperlipidemia, GERD, prostatitis, hiatal hernia, a bit forgetful Social history: Lives alone. Son lives close by. No smoking or alcohol. Retired [employer]. Does use a walker sometimes. Family history: : CAD Physical examination: VITAL SIGNS: 98.4, 74, 18, 152/89, 97% room air GENERAL: BMI 20.5, laying in bed, tired appearing. EYES: Pupils equal. Conjunctiva normal. HEENT: External appearance of nose and ears normal, oral cavity grossly normal. NECK: JVD not raised; masses not palpable. HEART: First and second heart sounds are normal; no edema. LUNGS: Respiratory rate normal; clear to auscultation. ABDOMEN: Soft, mild tenderness, no guarding rigidity, liver spleen not palpable, no masses palpable. 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 NEUROLOGICAL: Cranial nerves grossly intact; no facial asymmetry, power and sensation grossly intact. LYMPHATICS: No lymph nodes palpable in the axilla and neck INVESTIGATIONS, reviewed in the clinical context: [facility] Amylase 155 lipase 85 sodium 137 potassium 3.7 BUN 13 creatinine 1.1 both AST and ALT normal. Troponin 1.2 lactic acid 4 white count 8.5 hemoglobin 14.9 platelets 195 Chest x-ray film personally reviewed by me-no infiltrates EKG tracing personally reviewed by me-normal sinus rhythm Computed tomography scan of the abdomen showing fluid. Mouth. Distended. No obvious obstruction noted. Sigmoid diverticulosis Assessment and plan: -This patient presented with intermittent nausea vomiting going on and off with periods of eating for last 1 week. More protracted last 24 hours. Computed tomography scan is showing fluid-filled distended stomach. Obstruction cannot be ruled out. Gastroparesis possible. Family was informed and Dr. Beata Larson whom the patient has not not available for the weekend. Consultation to Dr. Beata Larson and surgery is being done. In the meantime start the patient on IV Reglan to see that helps. If is a gastroparesis component. Patient will be kept nothing by mouth. IV fluids. -Clinical dehydration IV fluids -BPH Patient not on any medications. 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 Nothing by mouth. Oral medications. Consult GI and surgery. IV Reglan. Subcu Lovenox for DVT prophylaxis. Repeat labs. Past Medical History Past Medical History: Diabetes Mellitus, GERD/Reflux, Hyperlipidemia Additional Past Medical History / Comment(s): sees Dr Aayush Larson in [place] History of Any Multi-Drug Resistant Organisms: None Reported Past Surgical History: Back Surgery Additional Past Surgical History / Comment(s): Esophagus sx 2000 Past Anesthesia/Blood Transfusion Reactions: No Reported Reaction Past Psychological History: Anxiety, Depression Smoking Status: Never smoker Past Alcohol Use History: None Reported Past Drug Use History: None Reported - Past Family History Mother Family Medical History: Chest Pain / Angina, Myocardial Infarction ([place]) Additional Family Medical History / Comment(s): age 85 Father Family Medical History: Cancer Additional Family Medical History / Comment(s): pancreatic cancer age 90 Medications and Allergies Home Medications Medication Instructions Recorded Confirmed Type Aspirin EC [Ecotrin Low Dose] 81 mg PO DAILY 08/01/20 04/30/21 History Nitroglycerin Sl Tabs [Nitrostat] 0.4 mg SL Q5M PRN 08/01/20 04/30/21 History Simvastatin [Zocor] 20 mg PO HS 08/01/20 04/30/21 History Famotidine [Pepcid] 20 mg PO DAILY 04/30/21 04/30/21 History Ondansetron [Zofran] 4 mg PO Q6H PRN 04/30/21 04/30/21 History Allergies Allergy/AdvReac Type Severity Reaction Status Date / Time No Known Allergies Allergy Verified 04/30/21 01:08 Physical Exam Vitals: Vital Signs Temp Pulse Resp BP Pulse Ox 04/30/21 04:54 98.2 F 72 18 170/97 97 04/30/21 04:00 97.4 F L 68 16 145/88 96 04/30/21 00:55 98.8 F 87 16 169/98 96 Intake and Output 04/29/21 04/30/21 04/30/21 22:59 06:59 14:59 Other: # Voids 2 Weight 61.235 kg
[2021-04-30] MEDS ORDERED: ACETAMINOPHEN TAB 325 MG TAB PO PRN (13:57)
[2021-04-30] MEDS ORDERED: MAG HYDROX/AL HYDROX/SIMETH 30 ML CUP PO PRN (13:57)
[2021-04-30] MEDS ORDERED: MAGNESIUM HYDROXIDE 2,400 MG/10 ML CUP PO PRN (13:57)
[2021-04-30] MEDS ORDERED: LACTULOSE 20 GM/30 ML CUP PO PRN (13:57)
[2021-04-30] MEDS ORDERED: CALCIUM CARBONATE 500 MG CHEWABLE PO PRN (13:57)
[2021-04-30] MEDS ORDERED: MELATONIN 3 MG TABLET PO PRN (13:57)
[2021-04-30] MEDS: LACTATED RINGERS 1,000 ML IV SCH ×2 (15:14→19:53)
[2021-04-30] MEDS: ENOXAPARIN 40 MG/0.4 ML SYRINGE SQ SCH (15:14)
--- NOTE | 2021-04-30 16:48 | XR ---
EXAMINATION TYPE: XR abdomen 2V DATE OF EXAM: 04/30/2021 3:44 PM CLINICAL HISTORY: Gastric outlet obstruction. TECHNIQUE: Single supine KUB image of the abdomen is obtained. COMPARISON: None. FINDINGS: Air-fluid level within the moderate sized hiatal hernia and overlying the mid abdomen likely in the s tomach. No gaseous distended small bowel loops. Stool is present within the colon and small amount ga s is seen within the rectum. Nonspecific calcification overlying the left midabdomen and left kidney measuring 9 mm, possibly renal calculus. Moderate to advanced multilevel degenerative changes of the lumbar spine. At least moderate compression fracture of the T12 vertebral body. IMPRESSION: 1. Moderate sized hiatal hernia with air-fluid level and air-fluid level within the central abdomen l ikely in the stomach. 2. At least moderate compression fracture of the T12 vertebral body.
[2021-04-30] MEDS: METOCLOPRAMIDE 5 MG/ML 2 ML VIAL IVP SCH ×2 (17:58→23:30)
[2021-04-30] MEDS: PANTOPRAZOLE 40 MG/10 ML VIAL IVP SCH (19:52)
[2021-05-01] MEDS: LACTATED RINGERS 1,000 ML IV SCH ×3 (05:37→23:39)
[2021-05-01] MEDS: METOCLOPRAMIDE 5 MG/ML 2 ML VIAL IVP SCH ×3 (05:37→23:40)
[2021-05-01 05:54] LABS: Basophils % (A) 0 %; Eosinophils % (A) 0 %; HCT 36.9 % (39.0-53.0); HGB 12.6 gm/dL (13.0-17.5); Lymphocytes # (A) 1.1 k/uL (1.0-4.8); Lymphocytes % (A) 7 %; MCH 34.1 pg (25.0-35.0); MCV 100.2 fL (80.0-100.0); Mean Platelet Volume 7.4; Monocytes # (A) 0.7 k/uL (0-1.0); Monocytes % (A) 4 %; Neutrophils # (A) 14.9 k/uL (1.3-7.7); Neutrophils % (A) 88 %; Platelet Count 207 k/uL (150-450); RBC 3.69 m/uL (4.30-5.90); RDW 12.8 % (11.5-15.5)
[2021-05-01 06:16] LABS: African American GFR (CKD) >90 (>60 ml/min/1.73 sqM); Anion Gap 9 mmol/L; Blood Urea Nitrogen 17 mg/dL (9-20); Calcium 8.4 mg/dL (8.4-10.2); Carbon Dioxide 22 mmol/L (22-30); Chloride 102 mmol/L (98-107); Glucose 193 mg/dL (74-99); Non-African American GFR(CKD) 86 (>60 ml/min/1.73 sqM); Potassium 3.8 mmol/L (3.5-5.1); Sodium 133 mmol/L (137-145)
[2021-05-01 07:23] LABS: Glucose,Whole Blood 173 mg/dL (75-99)
[2021-05-01] MEDS: ENOXAPARIN 40 MG/0.4 ML SYRINGE SQ SCH (09:06)
[2021-05-01] MEDS: PANTOPRAZOLE 40 MG/10 ML VIAL IVP SCH ×2 (09:09→19:53)
--- NOTE | 2021-05-01 10:10 | P.GSCN ---
History of Present Illness Consult date: 05/01/21 History of present illness: 85-year-old male presents to the emergency department from an outside facility with complaints upper abdominal pain and nausea and vomiting. He states that this has been going on for a few days. He did states that he follows with GI as an outpatient. On work-up at the outside facility, CT of the abdomen and pelvis was performed that was concerning for gastroparesis versus gastric outlet obstruction. Patient states that he has been having flatus and had a bowel movement yesterday. He denies any abdominal distention. He has no history of peptic ulcer disease or abdominal surgery. He is noted to have a leukocytosis. He states that since his admission, he has not had any further emesis episodes. Review of Systems All systems: negative Past Medical History Past Medical History: Diabetes Mellitus, GERD/Reflux, Hyperlipidemia Additional Past Medical History / Comment(s): sees Dr Aayush Larson in [place] History of Any Multi-Drug Resistant Organisms: None Reported Past Surgical History: Back Surgery Additional Past Surgical History / Comment(s): Esophagus sx 2000 Past Anesthesia/Blood Transfusion Reactions: No Reported Reaction Past Psychological History: Anxiety, Depression Smoking Status: Never smoker Past Alcohol Use History: None Reported Past Drug Use History: None Reported - Past Family History Mother Family Medical History: Chest Pain / Angina, Myocardial Infarction ([place]) Additional Family Medical History / Comment(s): age 85 Father Family Medical History: Cancer Additional Family Medical History / Comment(s): pancreatic cancer age 90 Medications and Allergies Home Medications Medication Instructions Recorded Confirmed Type Aspirin EC [Ecotrin Low Dose] 81 mg PO DAILY 08/01/20 04/30/21 History Nitroglycerin Sl Tabs [Nitrostat] 0.4 mg SL Q5M PRN 08/01/20 04/30/21 History Simvastatin [Zocor] 20 mg PO HS 08/01/20 04/30/21 History Famotidine [Pepcid] 20 mg PO DAILY 04/30/21 04/30/21 History Ondansetron [Zofran] 4 mg PO Q6H PRN 04/30/21 04/30/21 History Allergies Allergy/AdvReac Type Severity Reaction Status Date / Time No Known Allergies Allergy Verified 04/30/21 01:08 Surgical - Exam Osteopathic Statement: *. No significant issues noted on an osteopathic structural exam other than those noted in the History and Physical/Consult. Vital Signs Temp Pulse Resp BP Pulse Ox 98.8 F 87 16 169/98 96 04/30/21 00:55 04/30/21 00:55 04/30/21 00:55 04/30/21 00:55 04/30/21 00:55 - General well nourished, no distress - Eyes normal ocular movement - ENT no hearing loss - Respiratory normal respiratory effort - Abdomen Abdomen: soft, non tender, no distended - Psychiatric oriented to time, oriented to person, oriented to place Results - Labs 05/01/21 04:50 05/01/21 04:50 Abnormal Lab Results - Last 24 Hours (Table) 05/01/21 05/01/21 05/01/21 Range/Units 04:50 04:50 07:20 WBC 17.0 H (3.8-10.6) k/uL RBC 3.69 L (4.30-5.90) m/uL Hgb 12.6 L (13.0-17.5) gm/dL Hct 36.9 L (39.0-53.0) % MCV 100.2 H (80.0-100.0) fL Neutrophils # 14.9 H (1.3-7.7) k/uL Sodium 133 L (137-145) mmol/L Glucose 193 H (74-99) mg/dL POC Glucose (mg/dL) 173 H (75-99) mg/dL Diabetes panel 05/01/21 Range/Units 04:50 Sodium 133 L (137-145) mmol/L Potassium 3.8 (3.5-5.1) mmol/L Chloride 102 (98-107) mmol/L Carbon Dioxide 22 (22-30) mmol/L BUN 17 (9-20) mg/dL Creatinine 0.73 (0.66-1.25) mg/dL Glucose 193 H (74-99) mg/dL Calcium 8.4 (8.4-10.2) mg/dL Calcium panel 05/01/21 Range/Units 04:50 Calcium 8.4 (8.4-10.2) mg/dL Pituitary panel 05/01/21 Range/Units 04:50 Sodium 133 L (137-145) mmol/L Potassium 3.8 (3.5-5.1) mmol/L Chloride 102 (98-107) mmol/L Carbon Dioxide 22 (22-30) mmol/L BUN 17 (9-20) mg/dL Creatinine 0.73 (0.66-1.25) mg/dL Glucose 193 H (74-99) mg/dL Calcium 8.4 (8.4-10.2) mg/dL Adrenal panel 05/01/21 Range/Units 04:50 Sodium 133 L (137-145) mmol/L Potassium 3.8 (3.5-5.1) mmol/L Chloride 102 (98-107) mmol/L Carbon Dioxide 22 (22-30) mmol/L BUN 17 (9-20) mg/dL Creatinine 0.73 (0.66-1.25) mg/dL Glucose 193 H (74-99) mg/dL Calcium 8.4 (8.4-10.2) mg/dL Assessment and Plan Plan: 85-year-old male with nausea and vomiting radiology findings concerning of gastroparesis versus outlet obstruction versus hiatal hernia. We will obtain a nuclear medicine gastric emptying study. Gastroenterology consult was placed as well. We will await gastroenterology recommendations on any requirement for endoscopy. The patient states that he has had an upper and lower endoscopy in the past but does not recall when this was. Further recommendations to be made based on the patient's clinical progress.
[2021-05-01 12:11] LABS: Hemoglobin A1C 8.5 % (4.0-6.0)
[2021-05-01 12:24] LABS: Glucose,Whole Blood 147 mg/dL (75-99)
[2021-05-01] MEDS ORDERED: IV FLUID CONTINUATION 1,000 ML IV ONE ×2 (12:25)
[2021-05-01] MEDS ORDERED: LIDOCAINE 1% INJ 10MG/ML (20 ML MDV) ONE (12:31)
[2021-05-01] MEDS ORDERED: PROPOFOL 10 MG/ML 20 ML VIAL IV ONE (12:31)
--- NOTE | 2021-05-01 12:58 | P.PCN ---
Date of Procedure: 05/01/21 Procedure(s) Performed: BRIEF HISTORY: Patient is a 85-year-old, pleasant, white male transferred from [facility] when he presented with epigastric pain and nausea vomiting for the last 1 week duration. He had a CT of abdomen and pelvis done that showed evidence of large hiatal hernia and mild fluid distention of the stomach status post gastric outlet obstruction versus gastroparesis.. PROCEDURE PERFORMED: Esophagogastroduodenoscopy. PREOPERATIVE DIAGNOSIS: Epigastric pain/intermittent nausea vomiting and progressive weight loss of 30 pounds. IV sedation per anesthesia. PROCEDURE: After informed consent was obtained, the patient was brought into the endoscopy unit. IV sedation was administered by Anesthesia under continuous monitoring. Initially the Olympus GIF-140 video endoscope was inserted into the mouth. Esophagus intubated without any difficulty. It was gradually advanced into the stomach and duodenum and carefully examined. The bulb and the second part of the duodenum appeared normal. The scope at this time was withdrawn to the stomach, adequately insufflated with air, and upon careful examination, mucosa of the antrum, body, appeared normal. There was evidence of large paraesophageal hiatal hernia noted causing some functional gastric outlet obstruction. No retained food in the stomach. The pylorus was patent. The scope was then withdrawn into the esophagus. The GE junction was located at 34 cm from the incisors. The distal esophagus. This was slightly tortuous. There were linear erosions in the distal esophagus consistent with LA grade B reflux esophagitis. The rest of the esophagus appeared normal. There were no erosions or ulcerations seen and the patient tolerated the procedure well. IMPRESSION: 1. Large paraesophageal hiatal hernia. 2. No evidence of gastric outlet or obstruction or retained food in the stomach to suggest gastroparesis. 3. Linear erosions in the distal esophagus consistent with LA grade B reflux esophagitis. 4. Tortuous distal esophagus RECOMMENDATIONS: The findings of this examination were discussed with the patientas well as his family. His symptoms are most likely related to symptomatic hiatal hernia which possibly has caused functional gastric outlet obstruction that appears to have resolved currently. Start him on clear liquid diet and advance as tolerated. Continue Protonix 40 mg twice daily.
--- NOTE | 2021-05-01 14:14 | P.CONS ---
History of Present Illness - Reason for Consult Consult date: 05/01/21 Gastric outlet obstruction Requesting physician: Hugo Clarke - Chief Complaint Abdominal pain, nausea and vomiting - History of Present Illness This is an 85-year-old male who presented to [facility] with complaints of vertigo with falling and abdominal pain associated with nausea and vomiting. The patient states he's been having abdominal pain with intermittent nausea and vomiting for the last couple months duration. States that if he eats or drinks he will vomit within the next 10 minutes following however he may only have this for 1-2 days and then it improves. He's also had a decreased appetite and weight loss of approximately 30 pounds over the last 1 year duration. He states he's had a previous EGD however unsure when his last one was. He denies any coffee-ground or hematemesis. He takes Pepcid daily, denies any frequent NSAID use or anticoagulation. Review of Systems REVIEW OF SYSTEMS: CARDIOPULMONARY: No chest pain or shortness of breath. Gastrointestinal: Epigastric pain. Nausea and vomiting following eating or drinking, not visually occurs intermittently.. No hematemesis, coffee-ground emesis. No rectal bleeding, or melena. Decreased appetite. GENITOURINARY: No dysuria or hematuria. MUSCULOSKELETAL: Reports normal range of motion., Joint pain. SKIN: No rashes. No jaundice. ENDOCRINE: No chills, fevers. No excessive weight gain or loss. No polydipsia or polyuria. PSYCHIATRIC: Unremarkable. NEUROLOGY: No change in mental status. Denies dizziness, headache. ENT: Vision unremarkable. CONSTITUTIONAL: States approximately 30 pound weight loss in the past 1 year dur ation.. No fever, chills, night sweats. Past Medical History Past Medical History: Diabetes Mellitus, GERD/Reflux, Hyperlipidemia Additional Past Medical History / Comment(s): sees Dr Aayush Larson in [place] History of Any Multi-Drug Resistant Organisms: None Reported Past Surgical History: Back Surgery Additional Past Surgical History / Comment(s): Esophagus sx 2000 Past Anesthesia/Blood Transfusion Reactions: No Reported Reaction Past Psychological History: Anxiety, Depression Smoking Status: Never smoker Past Alcohol Use History: None Reported Past Drug Use History: None Reported - Past Family History Mother Family Medical History: Chest Pain / Angina, Myocardial Infarction ([place]) Additional Family Medical History / Comment(s): age 85 Father Family Medical History: Cancer Additional Family Medical History / Comment(s): pancreatic cancer age 90 Medications and Allergies Home Medications Medication Instructions Recorded Confirmed Type Aspirin EC [Ecotrin Low Dose] 81 mg PO DAILY 08/01/20 04/30/21 History Nitroglycerin Sl Tabs [Nitrostat] 0.4 mg SL Q5M PRN 08/01/20 04/30/21 History Simvastatin [Zocor] 20 mg PO HS 08/01/20 04/30/21 History Famotidine [Pepcid] 20 mg PO DAILY 04/30/21 04/30/21 History Ondansetron [Zofran] 4 mg PO Q6H PRN 04/30/21 04/30/21 History Allergies Allergy/AdvReac Type Severity Reaction Status Date / Time No Known Allergies Allergy Verified 04/30/21 01:08 Physical Exam Vitals: Vital Signs Temp Pulse Pulse Resp BP BP Pulse Ox 05/01/21 04:44 98.3 F 77 16 101/45 93 L 04/30/21 20:00 98.2 F 73 16 122/67 96 04/30/21 18:53 67 18 124/71 95 04/30/21 14:07 59 L 18 164/90 95 04/30/21 13:00 98.4 F 74 18 152/89 97 Intake and Output 04/30/21 05/01/21 05/01/21 22:59 06:59 14:59 Intake Total 1200 Output Total 200 Balance 1000 Intake: Intake, IV Titration 1200 Amount Lactated Ringers 1,000 ml 1200 @ 125 mls/hr IV .Q8H [facility] Rx#:[id number] Output: Urine 200 Other: Voiding Method Urinal Diaper General appearance: The patient is alert, oriented, appears in no acute distress. HET: Head is normocephalic and atraumatic. Conjunctiva pink. Sclera anicteric. Neck: Supple without lymphadenopathy. Trachea midline. Heart: S1 S2. Regular rate and rhythm. Lungs: Clear to auscultation. Abdomen: Soft, thin, epigastric tenderness, nondistended with bowel sounds. No guarding or rigidity. Skin: No rashes. No jaundice. Extremities: Normal skin color and turgor. No pedal edema. Neurological: No focal deficits. Alert and oriented 3.. Results CBC & Chem 7: 05/01/21 04:50 05/01/21 04:50 Labs: Abnormal Lab Results - Last 24 Hours (Table) 05/01/21 05/01/21 05/01/21 Range/Units 04:50 04:50 07:20 WBC 17.0 H (3.8-10.6) k/uL RBC 3.69 L (4.30-5.90) m/uL Hgb 12.6 L (13.0-17.5) gm/dL Hct 36.9 L (39.0-53.0) % MCV 100.2 H (80.0-100.0) fL Neutrophils # 14.9 H (1.3-7.7) k/uL Sodium 133 L (137-145) mmol/L Glucose 193 H (74-99) mg/dL POC Glucose (mg/dL) 173 H (75-99) mg/dL Abdominal x-ray: report reviewed (Moderate size hiatal hernia with air-fluid level an air-fluid level within the central abdomen likely in the stomach. At least moderate compression fracture of the T8 12 vertebral body) Assessment and Plan (1) Nausea and vomiting Narrative/Plan: This is an 85-year-old male patient with complaints of nausea and vomiting after eating and drinking, this has been going on for the last 1-2 months intermittently. He also states he's been having some abdominal pain located in the epigastric region. States he's had decreased appetite and weight loss of approximately 30 pounds in the last one years duration. He denies any significant NSAID use, no anticoagulation, and he does take Pepcid daily. He has been following in the past with Dr. Larson, has had a previous EGD however patient is unsure when last one was completed. He was initially seen at [facility] and transferred here for CT of the abdomen showing possible gastric outlet obstruction. Patient states that he can vomit 10 minutes after he eats or drinks something, however his [id number] states that it usually not food content and will be more liquid. No coffee-ground emesis or hematemesis noted. This is intermittently and may occur for 1-2 days duration, then he can eat fine without any difficulty. States he has no pain with swallowing. We'll plan for EGD this afternoon. Current Visit: Yes Status: Acute Code(s): R11.2 - NAUSEA WITH VOMITING, UNSPECIFIED SNOMED Code(s): 36564943 (2) Abdominal pain Current Visit: Yes Status: Acute Code(s): R10.9 - UNSPECIFIED ABDOMINAL PAIN SNOMED Code(s): 12233115 Plan: 1. Continue symptomatic and supportive care 2. Continue Protonix 40 mg daily 3. Keep nothing by mouth 4. Hold Lovenox morning dose 5. Patient scheduled for EGD this afternoon, procedure discussed with patient in detail including risks and benefits. This was also discussed with the patient's [id number] over the phone both the patient and [id number] wish to proceed with procedure. Thank you for this consultation, we will continue to follow. Dr. Beata Larson I agree with the dictator's note, documented as a scribe by Nyasia Muniz.
[2021-05-01] MEDS ORDERED: ONDANSETRON 4 MG/2 ML VIAL IVP PRN (14:32)
[2021-05-01 17:39] LABS: Glucose,Whole Blood 129 mg/dL (75-99)
[2021-05-01 20:03] LABS: Glucose,Whole Blood 148 mg/dL (75-99)
[2021-05-02] MEDS: METOCLOPRAMIDE 5 MG/ML 2 ML VIAL IVP SCH ×3 (05:48→18:00)
[2021-05-02] MEDS: LACTATED RINGERS 1,000 ML IV SCH ×3 (05:50→20:41)
[2021-05-02 06:27] LABS: Basophils % (A) 0 %; Eosinophils # (A) 0.1 k/uL (0-0.7); Eosinophils % (A) 1 %; HCT 36.9 % (39.0-53.0); HGB 12.4 gm/dL (13.0-17.5); Lymphocytes # (A) 0.8 k/uL (1.0-4.8); Lymphocytes % (A) 6 %; MCH 33.7 pg (25.0-35.0); MCHC 33.6 g/dL (31.0-37.0); MCV 100.1 fL (80.0-100.0); Mean Platelet Volume 8.4; Monocytes # (A) 0.8 k/uL (0-1.0); Monocytes % (A) 6 %; Neutrophils # (A) 10.4 k/uL (1.3-7.7); Neutrophils % (A) 86 %; Platelet Count 171 k/uL (150-450); RBC 3.69 m/uL (4.30-5.90); RDW 12.4 % (11.5-15.5); WBC 12.2 k/uL (3.8-10.6)
[2021-05-02 07:18] LABS: Glucose,Whole Blood 118 mg/dL (75-99)
[2021-05-02] MEDS: ENOXAPARIN 40 MG/0.4 ML SYRINGE SQ SCH (08:27)
[2021-05-02] MEDS: PANTOPRAZOLE 40 MG/10 ML VIAL IVP SCH ×2 (08:27→20:40)
[2021-05-02 10:31] LABS: African American GFR (CKD) 95.7 (60.0-200.0); Anion Gap 8.5 mmol/L (4.00-12.00); Calcium 7.7 mg/dL (8.7-10.3); Carbon Dioxide 25.5 mmol/L (21.6-31.8); Non-African American GFR(CKD) 82.6 (60.0-200.0); Potassium 3.5 mmol/L (3.5-5.5)
--- NOTE | 2021-05-02 13:20 | P.PN ---
Subjective Progress Note Date: 05/02/21 Patient seen and examined at bedside. States he is feeling better. Denies nausea or vomiting. EGD was performed yesterday with no evidence of outlet obstruction. Objective - Vital Signs Vital signs: Vital Signs Temp 98.2 F 05/02/21 12:40 Pulse 74 05/02/21 12:40 Resp 18 05/02/21 12:40 BP 137/73 05/02/21 12:40 Pulse Ox 95 05/02/21 12:40 Intake & Output 05/01/21 05/02/21 05/02/21 18:59 06:59 18:59 Intake Total 800 1880 Output Total 250 400 550 Balance 550 1480 -550 Intake: IV 100 Intake, IV Titration 1400 Amount Lactated Ringers 1,000 ml 1400 @ 125 mls/hr IV .Q8H [facility] Rx#:[id number] Oral 700 480 Output: Urine 250 400 550 Other: Voiding Method Urinal Toilet Toilet Urinal Urinal # Voids 3 2 - Constitutional General appearance: Present: cooperative, no acute distress - Gastrointestinal Gastrointestinal Comment(s): Soft, nontender, nondistended, no rebound, no guarding - Musculoskeletal Musculoskeletal: Present: generalized weakness - Psychiatric Psychiatric: Present: A&O x's 3 - Labs CBC & Chem 7: 05/02/21 05:33 05/02/21 05:33 Labs: Abnormal Lab Results - Last 24 Hours (Table) 05/01/21 05/01/21 05/02/21 Range/Units 17:38 20:02 05:33 WBC 12.2 H (3.8-10.6) k/uL RBC 3.69 L (4.30-5.90) m/uL Hgb 12.4 L (13.0-17.5) gm/dL Hct 36.9 L (39.0-53.0) % MCV 100.1 H (80.0-100.0) fL Neutrophils # 10.4 H (1.3-7.7) k/uL Lymphocytes # 0.8 L (1.0-4.8) k/uL Sodium (135-145) mmol/L Glucose (70-110) mg/dL POC Glucose (mg/dL) 129 H 148 H (75-99) mg/dL Calcium (8.7-10.3) mg/dL 05/02/21 05/02/21 Range/Units 05:33 07:08 WBC (3.8-10.6) k/uL RBC (4.30-5.90) m/uL Hgb (13.0-17.5) gm/dL Hct (39.0-53.0) % MCV (80.0-100.0) fL Neutrophils # (1.3-7.7) k/uL Lymphocytes # (1.0-4.8) k/uL Sodium 134 L (135-145) mmol/L Glucose 124 H (70-110) mg/dL POC Glucose (mg/dL) 118 H (75-99) mg/dL Calcium 7.7 L (8.7-10.3) mg/dL Assessment and Plan Plan: 85-year-old male with nausea vomiting, large hiatal hernia. He did undergo EGD yesterday with gastroenterology and I did discuss the case with Dr. Larson, it lead. She does follow with him closely as an outpatient and he has had multiple episodes of these symptoms over the past several weeks. It does appear that he is having symptoms secondary to his large hiatal hernia. The plan is for the patient to be referred to a foregut specialist for repair of the large hiatal hernia as an outpatient. This will likely be in the [facility] system. This was discussed with the patient and he is agreeable with this. We will continue to monitor the patient for any changes in his clinical progress.
--- NOTE | 2021-05-02 15:05 | P.PN ---
Subjective Progress Note Date: 05/02/21 Principal diagnosis: Nausea and vomiting, possible gastric outlet obstruction 85-year-old male who was transferred from [facility] when he presented with epigastric pain associated with nausea and vomiting for the last 1 week duration. Patient states he's been having intermittent nausea and vomiting following eating and drinking. CT of the abdomen and pelvis done showed evidence of large hiatal hernia and mild fluid distention of the stomach status post gastric outlet obstruction versus gastroparesis. Yesterday he underwent an upper endoscopy showing a large paraesophageal hiatal hernia, no evidence of gastric outlet obstruction or retained food in the stomach to suggest gastroparesis, linear erosions in the distal esophagus consistent with LA grade B reflux esophagitis, and a tortuous distal esophagus. Today the patient denies any nausea or vomiting, he denies any abdominal pain. He is having a normal bowel movement. He has been tolerating full liquid diet. Objective - Vital Signs Vital signs: Vital Signs Temp 98.2 F 05/02/21 12:40 Pulse 74 05/02/21 12:40 Resp 18 05/02/21 12:40 BP 137/73 05/02/21 12:40 Pulse Ox 95 05/02/21 12:40 Intake & Output 05/01/21 05/02/21 05/02/21 18:59 06:59 18:59 Intake Total 800 1880 Output Total 250 400 550 Balance 550 1480 -550 Intake: IV 100 Intake, IV Titration 1400 Amount Lactated Ringers 1,000 ml 1400 @ 125 mls/hr IV .Q8H REPLACED BY [facility] Rx#:[id number] Oral 700 480 Output: Urine 250 400 550 Other: Voiding Method Urinal Toilet Toilet Urinal Urinal # Voids 3 2 - Exam General appearance: The patient is alert, oriented, appears in no acute distress. HET: Head is normocephalic and atraumatic. Conjunctiva pink. Sclera anicteric. Neck: Supple without lymphadenopathy. Abdomen: Soft, nontender, nondistended with bowel sounds. No guarding or rigidity. Extremities: Normal skin color and turgor. No pedal edema Skin: No rashes, no jaundice Neurological: No focal deficits. Alert and oriented 3. - Labs CBC & Chem 7: 05/02/21 05:33 05/02/21 05:33 Labs: Abnormal Lab Results - Last 24 Hours (Table) 05/01/21 05/01/21 05/02/21 Range/Units 17:38 20:02 05:33 WBC 12.2 H (3.8-10.6) k/uL RBC 3.69 L (4.30-5.90) m/uL Hgb 12.4 L (13.0-17.5) gm/dL Hct 36.9 L (39.0-53.0) % MCV 100.1 H (80.0-100.0) fL Neutrophils # 10.4 H (1.3-7.7) k/uL Lymphocytes # 0.8 L (1.0-4.8) k/uL Sodium (135-145) mmol/L Glucose (70-110) mg/dL POC Glucose (mg/dL) 129 H 148 H (75-99) mg/dL Calcium (8.7-10.3) mg/dL 05/02/21 05/02/21 Range/Units 05:33 07:08 WBC (3.8-10.6) k/uL RBC (4.30-5.90) m/uL Hgb (13.0-17.5) gm/dL Hct (39.0-53.0) % MCV (80.0-100.0) fL Neutrophils # (1.3-7.7) k/uL Lymphocytes # (1.0-4.8) k/uL Sodium 134 L (135-145) mmol/L Glucose 124 H (70-110) mg/dL POC Glucose (mg/dL) 118 H (75-99) mg/dL Calcium 7.7 L (8.7-10.3) mg/dL Assessment and Plan (1) Nausea and vomiting Narrative/Plan: This is an 85-year-old male patient with complaints of nausea and vomiting after eating and drinking, this has been going on for the last 1-2 months intermittently. He also states he's been having some abdominal pain located in the epigastric region. States he's had decreased appetite and weight loss of approximately 30 pounds in the last one years duration. He denies any significant NSAID use, no anticoagulation, and he does take Pepcid daily. He has been following in the past with Dr. Larson, has had a previous EGD however patient is unsure when last one was completed. He was initially seen at [facility] and transferred here for CT of the abdomen showing possible gastric outlet obstruction. Patient states that he can vomit 10 minutes after he eats or drinks something, however his [id number] states that it usually not food content and will be more liquid. No coffee-ground emesis or hematemesis noted. This is intermittently and may occur for 1-2 days duration, then he can eat fine without any difficulty. States he has no pain with swallowing. We'll plan for EGD this afternoon. Patient is status post EGD with findings of a large paraesophageal hiatal hernia, no evidence of gastric outlet obstruction or retained food in the stomach to suggest gastroparesis. Linear erosions in the distal esophagus consistent with LA grade B reflux esophagitis. Tortuous distal esophagus. Surgery is on consult, they are recommending patient have outpatient follow-up with tertiary center such as [facility] for large hiatal hernia. Current Visit: Yes Status: Acute Code(s): R11.2 - NAUSEA WITH VOMITING, UNSPECIFIED SNOMED Code(s): 43764244 (2) Abdominal pain Current Visit: Yes Status: Acute Code(s): R10.9 - UNSPECIFIED ABDOMINAL PAIN SNOMED Code(s): 33082144 Plan: 1. Continue symptomatic and supportive care 2. Continue Protonix 40 mg daily 3. Patient may have regular diet 4. Patient is status post EGD 5. EGD findings discussed with general surgery, general surgery following patient closely and recommending outpatient follow-up with possible tertiary center such as [facility] 6. Patient is encouraged to eat small frequent meals Thank you for this consultation, the patient is cleared from gastroenterology for discharge. Dr. Beata Larson I agree with the dictator's note, documented as a scribe by Nyasia Muniz.
--- NOTE | 2021-05-02 17:10 | CT ---
EXAMINATION TYPE: CT brain wo con DATE OF EXAM: 05/02/2021 HISTORY: fall. CT DLP: 1108.4 mGycm. Automated Exposure Control for Dose Reduction was Utilized. TECHNIQUE: CT scan of the head is performed without contrast. COMPARISON: 06/02/2013 FINDINGS: There is no acute intracranial hemorrhage, midline shift, or mass effect identified. Brain parenchyma demonstrates generalized volume loss. Patchy white matter hypodensities likely sequela of chronic mi crovascular ischemic change. The ventricles, sulci, and cisterns are normal in size and configuration. No extra-axial fluid collection. Bones and extracranial soft tissues are intact. The globes are gross ly symmetric. Visualized sinuses and mastoid air cells are clear. IMPRESSION: 1. No acute intracranial hemorrhage, midline shift, or mass effect. 2. Moderate patchy white matter hypodensities likely sequela of chronic microvascular ischemic change .
[2021-05-02 17:20] LABS: Glucose,Whole Blood 148 mg/dL (75-99)
[2021-05-02 20:19] LABS: Glucose,Whole Blood 134 mg/dL (75-99)
[2021-05-03] MEDS: METOCLOPRAMIDE 5 MG/ML 2 ML VIAL IVP SCH ×3 (00:31→12:41)
[2021-05-03] MEDS: LACTATED RINGERS 1,000 ML IV SCH ×2 (05:58→14:04)
[2021-05-03 07:15] LABS: Glucose,Whole Blood 143 mg/dL (75-99)
[2021-05-03] MEDS: ENOXAPARIN 40 MG/0.4 ML SYRINGE SQ SCH (08:20)
[2021-05-03] MEDS: PANTOPRAZOLE 40 MG/10 ML VIAL IVP SCH (08:20)
--- NOTE | 2021-05-03 09:12 | P.PN ---
Subjective Progress Note Date: 05/01/21 This is a pleasant 85-year-old patient who was transferred from [facility]. History is obtained by the son and [id number] at the bedside. Chronic stable medical conditions include BPH, hyperlipidemia, GERD, prostatitis, mild forgetfulness, hiatal hernia. Patient has been having vomiting on and off for about a week. Getting better in between. Yesterday started having persistent vomiting. Was taken down to the [facility]. Lab work showed amylase of 155, lipase 85, BUN 13, creatinine 1.1. Bilirubin was 2. AST and he was normal. Computed tomography scan of the abdomen showed a fluid-filled distended stomach. There was no obvious obstruction noted. Differential was gastroparesis versus arterial obstruction. White count was normal at 8.5. Patient normally has a bowel movement daily. Has some abdominal discomfort. No pain. 05/01/2021 Patient is seen in follow-up this morning and denies any further vomiting and has been cleared by GI services and continued on clear liquid diet and may advance as tolerated. Surgery Dr. Arthur also following with no plans of vasquez rgical intervention and patient will need outpatient follow-up at his previous surgeon out of [facility] as patient underwent EGD showing large paraesophageal hiatal hernia with no evidence of gastric outlet obstruction or retained food in the stomach to suggest gastroparesis, linear erosions in the distal esophagus consistent with LA grade B reflux esophagitis and tortious distal esophagus and recommended to continue with Protonix twice daily. Review of systems: Constitutional: No reports of fatigue, fever, or chills Cardiovascular: No reports of chest pain or palpitations Respiratory: No reports of shortness of breath or cough GI: No reports of nausea, vomiting, or diarrhea : No reports of dysuria or retention Neurovascular: reports of generalized weakness All medications have been reviewed Objective - Vital Signs Vital signs: Vital Signs Temp 98.2 F 05/02/21 12:40 Pulse 74 05/02/21 12:40 Resp 18 05/02/21 12:40 BP 137/73 05/02/21 12:40 Pulse Ox 95 05/02/21 12:40 Intake & Output 05/01/21 05/02/21 05/02/21 18:59 06:59 18:59 Intake Total 800 1880 Output Total 250 400 550 Balance 550 1480 -550 Intake: IV 100 Intake, IV Titration 1400 Amount Lactated Ringers 1,000 ml 1400 @ 125 mls/hr IV .Q8H [facility] Rx#:[id number] Oral 700 480 Output: Urine 250 400 550 Other: Voiding Method Urinal Toilet Toilet Urinal Urinal # Voids 3 2 - Exam GENERAL: This is an 85-year-old male sitting up in the chair awake, alert and oriented 3, thin built. EYES: Pupils equal. Conjunctiva normal. HEENT: External appearance of nose and ears normal, oral cavity grossly normal. NECK: JVD not raised; masses not palpable. HEART: S1, S2 are muffled LUNGS: Respiratory rate normal; clear to auscultation. ABDOMEN: Soft, mild tenderness, no guarding rigidity, liver spleen not palpable, no masses palpable. 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 NEUROLOGICAL: Cranial nerves grossly intact; no facial asymmetry, power and sensation grossly intact. Diffusely weak LYMPHATICS: No lymph nodes palpable in the axilla and neck - Labs CBC & Chem 7: 05/02/21 05:33 05/02/21 05:33 Labs: Abnormal Lab Results - Last 24 Hours (Table) 05/01/21 05/01/21 05/02/21 Range/Units 17:38 20:02 05:33 WBC 12.2 H (3.8-10.6) k/uL RBC 3.69 L (4.30-5.90) m/uL Hgb 12.4 L (13.0-17.5) gm/dL Hct 36.9 L (39.0-53.0) % MCV 100.1 H (80.0-100.0) fL Neutrophils # 10.4 H (1.3-7.7) k/uL Lymphocytes # 0.8 L (1.0-4.8) k/uL Sodium (135-145) mmol/L Glucose (70-110) mg/dL POC Glucose (mg/dL) 129 H 148 H (75-99) mg/dL Calcium (8.7-10.3) mg/dL 05/02/21 05/02/21 Range/Units 05:33 07:08 WBC (3.8-10.6) k/uL RBC (4.30-5.90) m/uL Hgb (13.0-17.5) gm/dL Hct (39.0-53.0) % MCV (80.0-100.0) fL Neutrophils # (1.3-7.7) k/uL Lymphocytes # (1.0-4.8) k/uL Sodium 134 L (135-145) mmol/L Glucose 124 H (70-110) mg/dL POC Glucose (mg/dL) 118 H (75-99) mg/dL Calcium 7.7 L (8.7-10.3) mg/dL Assessment and Plan Assessment: -This patient presented with intermittent nausea vomiting going on and off with periods of eating for last 1 week. More protracted last 24 hours. Computed tomography scan is showing fluid-filled distended stomach. Obstruction cannot be ruled out. Gastroparesis possible. Family was informed and Dr. Beata Larson whom the patient has not not available for the weekend. Consultation to Dr. Beata Larson and surgery is being done. In the meantime start the patient on IV Reglan to see that helps. If is a gastroparesis component. Patient will be kept nothing by mouth. IV fluids. Nausea and vomiting with abdominal pain with possible obstruction or gastro paresis Status post EGD showing large paraesophageal hiatal hernia with no evidence of gastric outlet obstruction to suggest gastroparesis, linear erosions in the distal esophagus consistent with LA grade B reflux esophagitis and tortious distal esophagus Dehydration Benign prostatic hypertrophy history Hyperlipidemia Gastroesophageal reflux disease History of hiatal hernia Mild cognitive impairment likely from late onset of Alzheimer's dementia GI prophylaxis DVT prophylaxis Full code Plan: Patient is continued on gentle IV hydration and will continue and started on clear liquids and will continue with Protonix twice daily with GI and surgery Dr. Arthur following. Patient underwent EGD as mentioned previously and has been evaluated by surgery with no surgical interventions planned at this time and recommending outpatient follow-up with his previous surgeon possible hernia repair. Patient is on clear liquids and tolerating and instructed to advance slowly as tolerated. Monitor for any worsening abdominal discomfort or nausea and vomiting. Due to multiple complex medical issues, prognosis is guarded. Will have case management and social work consulted along with PT/OT therapy as patient is weak and may require ECF placement. Further recommendations to follow based on the clinical course of the patient.
--- NOTE | 2021-05-03 09:20 | P.PN ---
Subjective Progress Note Date: 05/02/21 This is a pleasant 85-year-old patient who was transferred from [facility]. History is obtained by the son and [id number] at the bedside. Chronic stable medical conditions include BPH, hyperlipidemia, GERD, prostatitis, mild forgetfulness, hiatal hernia. Patient has been having vomiting on and off for about a week. Getting better in between. Yesterday started having persistent vomiting. Was taken down to the [facility]. Lab work showed amylase of 155, lipase 85, BUN 13, creatinine 1.1. Bilirubin was 2. AST and he was normal. Computed tomography scan of the abdomen showed a fluid-filled distended stomach. There was no obvious obstruction noted. Differential was gastroparesis versus arterial obstruction. White count was normal at 8.5. Patient normally has a bowel movement daily. Has some abdominal discomfort. No pain. 05/01/2021 Patient is seen in follow-up this morning and denies any further vomiting and has been cleared by GI services and continued on clear liquid diet and may advance as tolerated. Surgery Dr. Arthur also following with no plans of vasquez rgical intervention and patient will need outpatient follow-up at his previous surgeon out of [facility] as patient underwent EGD showing large paraesophageal hiatal hernia with no evidence of gastric outlet obstruction or retained food in the stomach to suggest gastroparesis, linear erosions in the distal esophagus consistent with LA grade B reflux esophagitis and tortious distal esophagus and recommended to continue with Protonix twice daily. 05/02/2021 Patient is seen in follow-up this morning tolerating clear liquids and them being advanced to full liquids with no further reports of nausea or vomiting noted. GI recommending advancing slowly as tolerated and has cleared the patient and recommend outpatient follow-up as needed and continued on Protonix twice daily. Surgery is also evaluated the patient and discussed with the patient and family about following up with previous surgeon for hiatal hernia repair out of [facility]. Per nursing staff patient is extremely weak and will have PT/OT therapy reevaluate the patient as patient was going to the bathroom on his own and fell coming out of the bathroom and apparently lightly struck his head with no LOC noted. CT brain ordered showing no acute intracranial hemorrhage midline shift or mass effect with moderate patchy white matter hypodensities likely of chronic microvascular ischemic change. Awaiting PT/OT reevaluation. Possible ECF and will consult social work. Review of systems: Constitutional: No reports of fatigue, fever, or chills Cardiovascular: No reports of chest pain or palpitations Respiratory: No reports of shortness of breath or cough GI: No reports of nausea, vomiting, or diarrhea : No reports of dysuria or retention Neurovascular: reports of generalized weakness All medications have been reviewed Objective - Vital Signs Vital signs: Vital Signs Temp 98.2 F 05/02/21 12:40 Pulse 74 05/02/21 12:40 Resp 18 05/02/21 12:40 BP 137/73 05/02/21 12:40 Pulse Ox 95 05/02/21 12:40 Intake & Output 05/01/21 05/02/21 05/02/21 18:59 06:59 18:59 Intake Total 800 1880 Output Total 250 400 550 Balance 550 1480 -550 Intake: IV 100 Intake, IV Titration 1400 Amount Lactated Ringers 1,000 ml 1400 @ 125 mls/hr IV .[facility]H [facility] Rx#:[id number] Oral 700 480 Output: Urine 250 400 550 Other: Voiding Method Urinal Toilet Toilet Urinal Urinal # Voids 3 2 - Exam GENERAL: This is an 85-year-old male sitting up in the chair awake, alert and oriented 3, thin built. EYES: Pupils equal. Conjunctiva normal. HEENT: External appearance of nose and ears normal, oral cavity grossly normal. NECK: JVD not raised; masses not palpable. HEART: S1, S2 are muffled LUNGS: Respiratory rate normal; clear to auscultation. ABDOMEN: Soft, mild tenderness, no guarding rigidity, liver spleen not palpable, no masses palpable. 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 NEUROLOGICAL: Cranial nerves grossly intact; no facial asymmetry, power and sensation grossly intact. Diffusely weak LYMPHATICS: No lymph nodes palpable in the axilla and neck - Labs CBC & Chem 7: 05/02/21 05:33 05/02/21 05:33 Labs: Abnormal Lab Results - Last 24 Hours (Table) 05/01/21 05/01/21 05/02/21 Range/Units 17:38 20:02 05:33 WBC 12.2 H (3.8-10.6) k/uL RBC 3.69 L (4.30-5.90) m/uL Hgb 12.4 L (13.0-17.5) gm/dL Hct 36.9 L (39.0-53.0) % MCV 100.1 H (80.0-100.0) fL Neutrophils # 10.4 H (1.3-7.7) k/uL Lymphocytes # 0.8 L (1.0-4.8) k/uL Sodium (135-145) mmol/L Glucose (70-110) mg/dL POC Glucose (mg/dL) 129 H 148 H (75-99) mg/dL Calcium (8.7-10.3) mg/dL 05/02/21 05/02/21 Range/Units 05:33 07:08 WBC (3.8-10.6) k/uL RBC (4.30-5.90) m/uL Hgb (13.0-17.5) gm/dL Hct (39.0-53.0) % MCV (80.0-100.0) fL Neutrophils # (1.3-7.7) k/uL Lymphocytes # (1.0-4.8) k/uL Sodium 134 L (135-145) mmol/L Glucose 124 H (70-110) mg/dL POC Glucose (mg/dL) 118 H (75-99) mg/dL Calcium 7.7 L (8.7-10.3) mg/dL Assessment and Plan Assessment: Nausea and vomiting with abdominal pain possibly secondary to large paraesophageal hiatal hernia with gastric outlet obstruction and gastroparesis ruled out Status post EGD showing large paraesophageal hiatal hernia with no evidence of gastric outlet obstruction to suggest gastroparesis, linear erosions in the distal esophagus consistent with LA grade B reflux esophagitis and tortious distal esophagus Dehydration Benign prostatic hypertrophy history Hyperlipidemia Gastroesophageal reflux disease History of hiatal hernia Mild cognitive impairment likely from late onset of Alzheimer's dementia Gait dysfunction Mild protein calorie malnutrition with a BMI of 20.5 GI prophylaxis DVT prophylaxis Full code Plan: Patient is continued on gentle IV hydration and will continue and will continue with Protonix twice daily with GI and surgery Dr. Arthur following. Patient underwent EGD as mentioned previously and has been evaluated by surgery with no surgical interventions planned at this time and recommending outpatient follow- up with his previous surgeon possible hernia repair. Patient tolerated diet and being advanced to full liquids and per GI may slowly advance as tolerated. Will have PT/OT therapy reevaluate the patient in the morning as patient continues to be weak and fell in the bathroom and CT head was done as mentioned previously with no intracranial hemorrhage noted with some moderate patchy white matter hypodensities of chronic microvascular ischemic change possibly noted. Will consult social work with possibility of ECF and will discuss with family about treatment plan moving forward. Further recommendations to follow based on the clinical course of the patient.
[2021-05-03 12:19] LABS: Glucose,Whole Blood 197 mg/dL (75-99)
--- NOTE | 2021-05-03 13:23 | P.PN ---
Subjective Progress Note Date: 05/03/21 Patient seen and examined at bedside. No acute events. Denies abdominal pain. Denies nausea vomiting today. Objective - Vital Signs Vital signs: Vital Signs Temp 98.4 F 05/03/21 05:59 Pulse 59 L 05/03/21 05:59 Resp 15 05/03/21 05:59 BP 115/61 05/03/21 05:59 Pulse Ox 94 L 05/03/21 05:59 Intake & Output 05/02/21 05/03/21 05/03/21 18:59 06:59 18:59 Intake Total 1365 Output Total 650 800 125 Balance -650 565 -125 Intake: Intake, IV Titration 1200 Amount Lactated Ringers 1,000 ml 1200 @ 125 mls/hr IV .Q8H [facility] Rx#:[id number] Oral 165 Output: Urine 650 800 125 Other: Voiding Method Toilet Urinal Urinal Urinal Diaper Diaper - Constitutional General appearance: Present: cooperative, no acute distress - Respiratory Details: no difficulty with respiration - Gastrointestinal Gastrointestinal Comment(s): soft, nontender, nondistended - Labs CBC & Chem 7: 05/02/21 05:33 05/02/21 05:33 Labs: Abnormal Lab Results - Last 24 Hours (Table) 05/02/21 05/02/21 05/03/21 Range/Units 17:16 20:18 07:13 POC Glucose (mg/dL) 148 H 134 H 143 H (75-99) mg/dL 05/03/21 Range/Units 12:18 POC Glucose (mg/dL) 197 H (75-99) mg/dL Assessment and Plan Plan: 85-year-old male with nausea vomiting, large hiatal hernia. He did undergo EGD with gastroenterology and I did discuss the case with Dr. Larson, diesel powerplant mechanic helper. She does follow with him closely as an outpatient and he has had multiple episodes of these symptoms over the past several weeks. It does appear that he is having symptoms secondary to his large hiatal hernia. The plan is for the patient to be referred to a foregut specialist for repair of the large hiatal hernia as an outpatient. This will likely be in the [facility] system. This was discussed with the patient and he is agreeable with this. Currently there are no acute changes and he is tolerating advancement of diet. No plan for acute surgical intervention.
--- NOTE | 2021-05-03 13:36 | P.DS ---
Providers Date of admission: 04/30/21 06:26 Expected date of discharge: 05/03/21 Attending physician: Hugo Clarke Consults: 04/30/21 01:18 Consult Physician Stat Consulting Provider: Kalpana Larson Consult Reason/Comments: gastric outlet obstruction Do you want consulting provider notified?: Yes 04/30/21 12:39 Consult Physician Routine Consulting Provider: Margaret Arthur Consult Reason/Comments: gastric distension Do you want consulting provider notified?: Yes Primary care physician: [facility] Course: Final diagnosis Nausea and vomiting with abdominal pain possibly secondary to large paraesophageal hiatal hernia with gastric outlet obstruction and gastroparesis ruled out Status post EGD showing large paraesophageal hiatal hernia with no evidence of gastric outlet obstruction to suggest gastroparesis, linear erosions in the distal esophagus consistent with LA grade B reflux esophagitis and tortious distal esophagus Dehydration Benign prostatic hypertrophy history Hyperlipidemia Gastroesophageal reflux disease History of hiatal hernia Mild cognitive impairment likely from late onset of Alzheimer's dementia Gait dysfunction Mild protein calorie malnutrition with a BMI of 20.5 GI prophylaxis DVT prophylaxis Full code Discharge disposition Patient is being discharged in a stable condition with guarded prognosis to [facility] for continued PT/OT therapy. Patient will follow-up with Dr. Salter in the outpatient setting upon discharge. Patient is to also follow-up outpatient with GI as needed and will need to follow-up outpatient with Mekhi Chapa provider in regards to any surgical intervention for hernia repair. Total time taken is greater than 35 minutes. Hospital course This is a pleasant 85-year-old patient who was transferred from [facility]. History is obtained by the son and [id number] at the bedside. Chronic stable medical conditions include BPH, hyperlipidemia, GERD, prostatitis, mild forgetfulness, hiatal hernia. Patient has been having vomiting on and off for about a week. Getting better in between. Yesterday started having persistent vomiting. Was taken down to the [facility]. Lab work showed amylase of 155, lipase 85, BUN 13, creatinine 1.1. Bilirubin was 2. AST and he was normal. Computed tomography scan of the abdomen showed a fluid-filled distended stomach. There was no obvious obstruction noted. Differential was gastroparesis versus arterial obstruction. White count was normal at 8.5. Patient normally has a bowel movement daily. Has some abdominal discomfort. No pain. 05/01/2021 Patient is seen in follow-up this morning and denies any further vomiting and has been cleared by GI services and continued on clear liquid diet and may advance as tolerated. Surgery Dr. Arthur also following with no plans of surgical intervention and patient will need outpatient follow-up at his previous surgeon out of [facility] as patient underwent EGD showing large paraesophageal hiatal hernia with no evidence of gastric outlet obstruction or retained food in the stomach to suggest gastroparesis, linear erosions in the distal esophagus consistent with LA grade B reflux esophagitis and tortious distal esophagus and recommended to continue with Protonix twice daily. 05/02/2021 Patient is seen in follow-up this morning tolerating clear liquids and them being advanced to full liquids with no further reports of nausea or vomiting noted. GI recommending advancing slowly as tolerated and has cleared the patient and recommend outpatient follow-up as needed and continued on Protonix twice daily. Surgery is also evaluated the patient and discussed with the patient and family about following up with previous surgeon for hiatal hernia repair out of [facility]. Per nursing staff patient is extremely weak and will have PT/OT therapy reevaluate the patient as patient was going to the bathroom on his own and fell coming out of the bathroom and apparently lightly struck his head with no LOC noted. CT brain ordered showing no acute intracranial hemorrhage midline shift or mass effect with moderate patchy white matter hypodensities likely of chronic microvascular ischemic change. Awaiting PT/OT reevaluation. Possible ECF and will consult social work. 05/03/2021 Patient is seen and evaluated in follow-up with no acute overnight issues. Patient is tolerating diet and advanced with no further reports of nausea or vomiting. Patient does follow with Dr. Neo DAVEY outpatient and will do so as needed along with the [facility] system that he had seen previously in regards to any surgical intervention for hernia repair. Patient continues to be weak and is agreeable to [facility] for continued PT/OT therapy. Currently no reports of chest pain, shortness of breath, or palpitations. Patient is afebrile. No reports of nausea or vomiting and patient is tolerating diet. Patient will be going to [facility] today. On exam vital signs are stable. Cardio S1, S2 are muffled. Respiratory system shows diminished breath sounds at the bases with no wheezing or rhonchi noted. Abdomen is soft and nontender. Nervous system shows diffuse weakness. Please refer to medication reconciliation sheet for a list of medications. Patient Condition at Discharge: Stable Plan - Discharge Summary New Discharge Prescriptions: New Melatonin 3 mg PO HS PRN tablet PRN Reason: Insomnia Acetaminophen Tab [Tylenol] 650 mg PO Q6HR PRN tab PRN Reason: Mild Pain Or Fever > 100.5 Lactulose [Cephulac] 20 gm PO DAILY PRN ml PRN Reason: Constipation Mag Hydrox/Al Hydrox/Simeth [Maalox] 15 ml PO Q6HR PRN ml PRN Reason: Indigestion Magnesium Hydroxide [Milk of Magnesia Concentrate] 2,400 mg PO DAILY PRN ml PRN Reason: Constipation Pantoprazole Sodium [Protonix] 40 mg PO BID #30 tablet. Metoclopramide HCl [Reglan] 5 mg PO QID PRN #10 tablet PRN Reason: Nausea Calcium Carbonate [Tums] 1,000 mg PO Q4HR PRN tab PRN Reason: Dyspepsia Continue Simvastatin [Zocor] 20 mg PO HS Nitroglycerin Sl Tabs [Nitrostat] 0.4 mg SL Q5M PRN PRN Reason: Chest Pain Aspirin EC [Ecotrin Low Dose] 81 mg PO DAILY Ondansetron [Zofran] 4 mg PO Q6H PRN PRN Reason: Nausea Famotidine [Pepcid] 20 mg PO DAILY Discharge Medication List Aspirin EC [Ecotrin Low Dose] 81 mg PO DAILY 08/01/20 [History] Nitroglycerin Sl Tabs [Nitrostat] 0.4 mg SL Q5M PRN 08/01/20 [History] Simvastatin [Zocor] 20 mg PO HS 08/01/20 [History] Famotidine [Pepcid] 20 mg PO DAILY 04/30/21 [History] Ondansetron [Zofran] 4 mg PO Q6H PRN 04/30/21 [History] Acetaminophen Tab [Tylenol] 650 mg PO Q6HR PRN tab 05/03/21 [Rx] Calcium Carbonate [Tums] 1,000 mg PO Q4HR PRN tab 05/03/21 [Rx] Lactulose [Cephulac] 20 gm PO DAILY PRN ml 05/03/21 [Rx] Mag Hydrox/Al Hydrox/Simeth [Maalox] 15 ml PO Q6HR PRN ml 05/03/21 [Rx] Magnesium Hydroxide [Milk of Magnesia Concentrate] 2,400 mg PO DAILY PRN ml 05/03/21 [Rx] Melatonin 3 mg PO HS PRN tablet 05/03/21 [Rx] Metoclopramide HCl [Reglan] 5 mg PO QID PRN #10 tablet 05/03/21 [Rx] Pantoprazole Sodium [Protonix] 40 mg PO BID #30 tablet. 05/03/21 [Rx] Follow up Appointment(s)/Referral(s): Josue Salter MD [Primary Care Provider] - 1-2 days Kalpana Larson MD [STAFF PHYSICIAN] - 3 Weeks Patient Instructions/Handouts: Hiatal Hernia (DC), Type 2 Diabetes in Adults: New Diagnosis (DC), Fall Prevention for Older Adults (DC), Esophagitis (DC) Activity/Diet/Wound Care/Special Instructions: Patient is going to [facility] as tolerated Continue current diet Patient to follow-up with Mekhi Chapa outpatient for further surgical intervention of hernia as discussed surgery Follow-up with primary care provider upon discharge [facility] - Discharge Disposition: TRANSFER TO SNF/ECF
--- NOTE | 2021-05-03 14:58 | P.PN ---
Subjective Progress Note Date: 05/03/21 Principal diagnosis: Nausea and vomiting, possible gastric outlet obstruction 85-year-old male who was transferred from [facility] when he presented with epigastric pain associated with nausea and vomiting for the last 1 week duration. Patient states he's been having intermittent nausea and vomiting following eating and drinking. CT of the abdomen and pelvis done showed evidence of large hiatal hernia and mild fluid distention of the stomach status post gastric outlet obstruction versus gastroparesis. Patient underwent an upper endoscopy showing a large paraesophageal hiatal hernia, no evidence of gastric outlet obstruction or retained food in the stomach to suggest gastroparesis, linear erosions in the distal esophagus consistent with LA grade B reflux esophagitis, and a tortuous distal esophagus. Today the patient denies any nausea or vomiting, he denies any abdominal pain. He is having a normal bowel movement. He is tolerating regular diet without any difficulty. Plan is for discharge to [facility]. Objective - Vital Signs Vital signs: Vital Signs Temp 98.4 F 05/03/21 05:59 Pulse 59 L 05/03/21 05:59 Resp 15 05/03/21 05:59 BP 115/61 05/03/21 05:59 Pulse Ox 94 L 05/03/21 05:59 Intake & Output 05/02/21 05/03/21 05/03/21 18:59 06:59 18:59 Intake Total 1365 Output Total 650 800 125 Balance -650 565 -125 Intake: Intake, IV Titration 1200 Amount Lactated Ringers 1,000 ml 1200 @ 125 mls/hr IV .Q8H [facility] Rx#:[id number] Oral 165 Output: Urine 650 800 125 Other: Voiding Method Toilet Urinal Urinal Urinal Diaper Diaper - Exam General appearance: The patient is alert, oriented, appears in no acute distress. HET: Head is normocephalic and atraumatic. Conjunctiva pink. Sclera anicteric. Neck: Supple without lymphadenopathy. Abdomen: Soft, nontender, nondistended with bowel sounds. No guarding or rigidity. Extremities: Normal skin color and turgor. No pedal edema Skin: No rashes, no jaundice Neurological: No focal deficits. Alert and oriented 3. - Labs CBC & Chem 7: 05/02/21 05:33 05/02/21 05:33 Labs: Abnormal Lab Results - Last 24 Hours (Table) 05/02/21 05/02/21 05/03/21 Range/Units 17:16 20:18 07:13 POC Glucose (mg/dL) 148 H 134 H 143 H (75-99) mg/dL Assessment and Plan (1) Nausea and vomiting Narrative/Plan: This is an 85-year-old male patient with complaints of nausea and vomiting after eating and drinking, this has been going on for the last 1-2 months intermittently. He also states he's been having some abdominal pain located in the epigastric region. States he's had decreased appetite and weight loss of approximately 30 pounds in the last one years duration. He denies any significant NSAID use, no anticoagulation, and he does take Pepcid daily. He has been following in the past with Dr. Larson, has had a previous EGD however patient is unsure when last one was completed. He was initially seen at [facility] and transferred here for CT of the abdomen showing possible gastric outlet obstruction. Patient states that he can vomit 10 minutes after he eats or drinks something, however his [id number] states that it usually not food content and will be more liquid. No coffee-ground emesis or hematemesis noted. This is intermittently and may occur for 1-2 days duration, then he can eat fine without any difficulty. States he has no pain with swallowing. We'll plan for EGD this afternoon. Patient is status post EGD with findings of a large paraesophageal hiatal hernia, no evidence of gastric outlet obstruction or retained food in the stomach to suggest gastroparesis. Linear erosions in the distal esophagus consistent with LA grade B reflux esophagitis. Tortuous distal esophagus. Surgery is on consult, they are recommending patient have outpatient follow-up with tertiary center such as [facility] for large hiatal hernia. Current Visit: Yes Status: Acute Code(s): R11.2 - NAUSEA WITH VOMITING, UNSPECIFIED SNOMED Code(s): 94722076 (2) Abdominal pain Current Visit: Yes Status: Acute Code(s): R10.9 - UNSPECIFIED ABDOMINAL PAIN SNOMED Code(s): 43539663 Plan: 1. Continue symptomatic and supportive care 2. Continue Protonix 40 mg daily 3. Patient may have regular diet 4. Patient is status post EGD 5. EGD findings discussed with general surgery, general surgery following patient closely and recommending outpatient follow-up with possible tertiary center such as [facility] 6. Patient is encouraged to eat small frequent meals Thank you for this consultation, the patient is cleared from gastroenterology for discharge. Dr. Beata Larson I agree with the dictator's note, documented as a scribe by Nyasia Muniz.
[2021-05-03 15:35] VITALS: BP 119/68; PULSE 69; RESP 16; TEMP 97.9
== END 2021-05-03 15:35 | DRG 392 ==
LOC: EC 00:47 → 5NMEDONC 06:26
PROVIDERS: ADMIT Hospitalist; ATTEND Hospitalist
PROC: 0DJ08ZZ Inspection of Upper Intestinal Tract, Via Natural or Artificial Opening Endoscopic (ICD-10-PCS; principal; 2021-05-01 08:25)
DX: K44.9 Diaphragmatic hernia without obstruction or gangrene (principal); K31.1 Adult hypertrophic pyloric stenosis; E44.1 Mild protein-calorie malnutrition; E11.9 Type 2 diabetes mellitus without complications; D72.829 Elevated white blood cell count, unspecified; G30.1 Alzheimer's disease with late onset; Z68.20 Body mass index [BMI] 20.0-20.9, adult; F02.80 Dementia in other diseases classified elsewhere, unspecified severity, without behavioral disturbance, psychotic disturbance, mood disturbance, and anxiety; R63.4 Abnormal weight loss; E78.5 Hyperlipidemia, unspecified; E86.0 Dehydration; F32.9 Major depressive disorder, single episode, unspecified; F41.9 Anxiety disorder, unspecified; K21.00 Gastro-esophageal reflux disease with esophagitis, without bleeding; N40.0 Benign prostatic hyperplasia without lower urinary tract symptoms; N41.9 Inflammatory disease of prostate, unspecified; Z79.82 Long term (current) use of aspirin; Z79.899 Other long term (current) drug therapy
CPT/HCPCS: 43235; 70450; 71045; 74019; 80048; 83036; 85025; 99285

== ENCOUNTER 2021-05-24 13:26 | Inpatient (IN) | payer MEDICARE, BC ==
[2021-05-24] MEDS ORDERED: PANTOPRAZOLE 40 MG/10 ML VIAL IVP STA (13:54)
--- NOTE | 2021-05-24 13:58 | ED ---
General Adult HPI - General Chief complaint: GI Bleed Stated complaint: GI Bleed Time Seen by Provider: 05/24/21 13:30 Source: patient, EMS, RN notes reviewed, old records reviewed Mode of arrival: EMS Limitations: physical limitation - History of Present Illness Initial comments: This is an 85-year-old male who presents to us from a skilled nursing he does have Alzheimer so his history is somewhat inaccurate. The report received from [facility] is that he came in because of bleeding CAT scan was done and it showed possibly a gastric outlet obstruction. Patient's hemoglobin was stable. Patient did not complain of any pain. Patient was sent to our facility because he had seen Dr. ribeiro in the past. There was also questionable right lo wer lobe pneumonia. Patient denies any pain patient is not sure why he was sent to the emergency room and Dr. jackson to begin with. No family members or caregivers are with the patient. - Related Data Home Medications Medication Instructions Recorded Confirmed Aspirin EC [Ecotrin Low Dose] 81 mg PO DAILY@0900 08/01/20 05/24/21 Nitroglycerin Sl Tabs [Nitrostat] 0.4 mg SL Q5M PRN 08/01/20 05/24/21 Famotidine [Pepcid] 20 mg PO DAILY@0904/30/21 05/24/21 Ondansetron [Zofran] 4 mg PO Q6H PRN 04/30/21 05/24/21 Atorvastatin [Lipitor] 10 mg PO HS@2100 05/24/21 05/24/21 Bisacodyl 5 mg PO Q48H PRN 05/24/21 05/24/21 House Supplement 120 ml PO DAILY@1400 05/24/21 05/24/21 Metoclopramide HCl [Reglan] 5 mg PO Q6H PRN 05/24/21 05/24/21 Pantoprazole Sodium [Protonix] 40 mg PO BID@0900,1700 05/24/21 05/24/21 Tamsulosin HCl [Flomax] 0.4 mg PO DAILY@0900 05/24/21 05/24/21 traMADol HCl [Ultram] 50 mg PO Q8H PRN 05/24/21 05/24/21 Previous Rx's Medication Instructions Recorded Acetaminophen Tab [Tylenol] 650 mg PO Q6HR PRN tab 05/03/21 Calcium Carbonate [Tums] 1,000 mg PO Q4HR PRN tab 05/03/21 Lactulose [Cephulac] 20 gm PO DAILY PRN ml 05/03/21 Mag Hydrox/Al Hydrox/Simeth 15 ml PO Q6HR PRN ml 05/03/21 [Maalox] Magnesium Hydroxide [Milk of 2,400 mg PO DAILY PRN ml 05/03/21 Magnesia Concentrate] Melatonin 3 mg PO HS PRN tablet 05/03/21 Allergies Allergy/AdvReac Type Severity Reaction Status Date / Time No Known Allergies Allergy Verified 05/24/21 14:50 Review of Systems ROS Statement: Those systems with pertinent positive or pertinent negative responses have been documented in the HPI. ROS Other: All systems not noted in ROS Statement are negative. Past Medical History Past Medical History: Diabetes Mellitus, GERD/Reflux, Hyperlipidemia Additional Past Medical History / Comment(s): sees Dr Aayush Larson in [place] History of Any Multi-Drug Resistant Organisms: None Reported Past Surgical History: Back Surgery Additional Past Surgical History / Comment(s): Esophagus sx 2000 Past Anesthesia/Blood Transfusion Reactions: No Reported Reaction Past Psychological History: Anxiety, Depression Smoking Status: Never smoker Past Alcohol Use History: None Reported Past Drug Use History: None Reported - Past Family History Mother Family Medical History: Chest Pain / Angina, Myocardial Infarction ([place]) Additional Family Medical History / Comment(s): age 85 Father Family Medical History: Cancer Additional Family Medical History / Comment(s): pancreatic cancer age 90 General Exam - General Exam Comments Initial Comments: GENERAL: Patient is well-developed and well-nourished. Patient is nontoxic and well- hydrated and is in no acute distress. ENT: Neck is soft and supple. No significant lymphadenopathy is noted. Oropharynx is clear. Moist mucous membranes. Neck has full range of motion without eliciting any pain. EYES: The sclera were anicteric and conjunctiva were pink and moist. Extraocular movements were intact and pupils were equal round and reactive to light. Eyelids were unremarkable. PULMONARY: Unlabored respirations. Good breath sounds bilaterally. No audible rales rhonchi or wheezing was noted. CARDIOVASCULAR: There is a regular rate and rhythm without any murmurs gallops or rubs. ABDOMEN: Soft and nontender with normal bowel sounds. SKIN: Skin is clear with no lesions or rashes and otherwise unremarkable. NEUROLOGIC: Patient is alert and oriented 2. Cranial nerves II through XII are grossly intact. Motor and sensory are also intact. Normal speech, volume and content. Symmetrical smile. Cerebellar exam grossly intact. MUSCULOSKELETAL: Normal extremities with adequate strength and full range of motion. No lower extremity swelling or edema. No calf tenderness. LYMPHATICS: No significant lymphadenopathy is noted PSYCHIATRIC: Normal psychiatric evaluation. Limitations: physical limitation Course Vital Signs 05/24/21 05/24/21 13:29 15:57 Temperature 97.2 F L Pulse Rate 106 H 114 H Respiratory 20 18 Rate Blood Pressure 150/98 129/91 O2 Sat by Pulse 96 95 Oximetry Procedures - Procedures Initial comment: Patient needed an NG tube placed a 14-Chinese tube was due to nasal gastric insertion. X-ray showed good placement of the tube gastric contents were removed from the tube as well. Patient tolerated procedure well. - Feeding Tube Replacement Use of Tube: other (Decompress his stomach) Medical Decision Making - Medical Decision Making I reviewed the CAT scan with Dr. Squires's from radiology and he stated that it looked as though the patient did had a hernia of his stomach post fundoplication. Patient looked like he had a gastric outlet obstruction. I spoke with Dr. Roberts he agreed to admit the patient admitted the patient and I consulted Dr. moncada. Metabolic hydrated the patient and had an NG tube ordered. Dr. Roberts requested [facility] for medical management. - Lab Data Result diagrams: 05/24/21 14:11 05/24/21 14:11 Lab Results 05/24/21 05/24/21 05/24/21 Range/Units 14:11 14:11 14:11 WBC 18.0 H (3.8-10.6) k/uL RBC 4.29 L (4.30-5.90) m/uL Hgb 14.2 (13.0-17.5) gm/dL Hct 41.7 (39.0-53.0) % MCV 97.2 (80.0-100.0) fL MCH 33.1 (25.0-35.0) pg MCHC 34.1 (31.0-37.0) g/dL RDW 12.0 (11.5-15.5) % Plt Count 229 (150-450) k/uL MPV 7.9 Neutrophils % 92 % Lymphocytes % 3 % Monocytes % 5 % Eosinophils % 0 % Basophils % 0 % Neutrophils # 16.6 H (1.3-7.7) k/uL Lymphocytes # 0.5 L (1.0-4.8) k/uL Monocytes # 0.8 (0-1.0) k/uL Eosinophils # 0.1 (0-0.7) k/uL Basophils # 0.0 (0-0.2) k/uL PT 12.6 H (9.0-12.0) sec INR 1.2 H (<1.2) APTT 18.5 L (22.0-30.0) sec Sodium 135 L (137-145) mmol/L Potassium 3.3 L (3.5-5.1) mmol/L Chloride 98 (98-107) mmol/L Carbon Dioxide 20 L (22-30) mmol/L Anion Gap 17 mmol/L BUN 20 (9-20) mg/dL Creatinine 0.75 (0.66-1.25) mg/dL Est GFR (CKD-EPI)AfAm >90 (>60 ml/min/1.73 sqM) Est GFR (CKD-EPI)NonAf 85 (>60 ml/min/1.73 sqM) Glucose 241 H (74-99) mg/dL Calcium 9.5 (8.4-10.2) mg/dL Magnesium 1.8 (1.6-2.3) mg/dL Total Bilirubin 1.7 H (0.2-1.3) mg/dL AST 34 (17-59) U/L ALT 27 (4-49) U/L Alkaline Phosphatase 125 (38-126) U/L Total Protein 7.0 (6.3-8.2) g/dL Albumin 4.0 (3.5-5.0) g/dL Coronavirus (PCR) (Not Detectd) 05/24/21 Range/Units 14:11 WBC (3.8-10.6) k/uL RBC (4.30-5.90) m/uL Hgb (13.0-17.5) gm/dL Hct (39.0-53.0) % MCV (80.0-100.0) fL MCH (25.0-35.0) pg MCHC (31.0-37.0) g/dL RDW (11.5-15.5) % Plt Count (150-450) k/uL MPV Neutrophils % % Lymphocytes % % Monocytes % % Eosinophils % % Basophils % % Neutrophils # (1.3-7.7) k/uL Lymphocytes # (1.0-4.8) k/uL Monocytes # (0-1.0) k/uL Eosinophils # (0-0.7) k/uL Basophils # (0-0.2) k/uL PT (9.0-12.0) sec INR (<1.2) APTT (22.0-30.0) sec Sodium (137-145) mmol/L Potassium (3.5-5.1) mmol/L Chloride (98-107) mmol/L Carbon Dioxide (22-30) mmol/L Anion Gap mmol/L BUN (9-20) mg/dL Creatinine (0.66-1.25) mg/dL Est GFR (CKD-EPI)AfAm (>60 ml/min/1.73 sqM) Est GFR (CKD-EPI)NonAf (>60 ml/min/1.73 sqM) Glucose (74-99) mg/dL Calcium (8.4-10.2) mg/dL Magnesium (1.6-2.3) mg/dL Total Bilirubin (0.2-1.3) mg/dL AST (17-59) U/L ALT (4-49) U/L Alkaline Phosphatase (38-126) U/L Total Protein (6.3-8.2) g/dL Albumin (3.5-5.0) g/dL Coronavirus (PCR) Not Detected (Not Detectd) Disposition Clinical Impression: Gastric outlet obstruction, Hematemesis Disposition: ADMITTED IP TO THIS [facility] Time of Disposition: 16:23
[2021-05-24 14:35] LABS: Basophils % (A) 0 %; Eosinophils # (A) 0.1 k/uL (0-0.7); Eosinophils % (A) 0 %; HCT 41.7 % (39.0-53.0); HGB 14.2 gm/dL (13.0-17.5); Lymphocytes # (A) 0.5 k/uL (1.0-4.8); Lymphocytes % (A) 3 %; MCH 33.1 pg (25.0-35.0); MCHC 34.1 g/dL (31.0-37.0); MCV 97.2 fL (80.0-100.0); Mean Platelet Volume 7.9; Monocytes # (A) 0.8 k/uL (0-1.0); Monocytes % (A) 5 %; Neutrophils # (A) 16.6 k/uL (1.3-7.7); Neutrophils % (A) 92 %; Platelet Count 229 k/uL (150-450); RBC 4.29 m/uL (4.30-5.90)
[2021-05-24 14:45] LABS: AST 34 U/L (17-59); African American GFR (CKD) >90 (>60 ml/min/1.73 sqM); Alkaline Phosphatase 125 U/L (38-126); Anion Gap 17 mmol/L; Blood Urea Nitrogen 20 mg/dL (9-20); Calcium 9.5 mg/dL (8.4-10.2); Carbon Dioxide 20 mmol/L (22-30); Chloride 98 mmol/L (98-107); Glucose 241 mg/dL (74-99); Magnesium 1.8 mg/dL (1.6-2.3); Non-African American GFR(CKD) 85 (>60 ml/min/1.73 sqM); Potassium 3.3 mmol/L (3.5-5.1); Sodium 135 mmol/L (137-145); Total Bilirubin 1.7 mg/dL (0.2-1.3)
[2021-05-24 14:51] LABS: INR 1.2 (<1.2); Prothrombin Time 12.6 sec (9.0-12.0)
[2021-05-24 14:52] LABS: ALT 27 U/L (4-49)
[2021-05-24 15:07] LABS: Partial Thromboplastin Time 18.5 sec (22.0-30.0)
--- NOTE | 2021-05-24 15:10 | XR ---
EXAMINATION TYPE: XR chest 2V DATE OF EXAM: 05/24/2021 COMPARISON: 04/30/2021 TECHNIQUE: PA and lateral views submitted. HISTORY: Shortness of breath FINDINGS: Large hiatal hernia with diffuse interstitial pattern, bilateral infiltrate. No sizable pleural effus ion or pneumothorax. Biapical pleural thickening with diffuse osteopenia and arthropathy of the shoul ders. IMPRESSION: 1. Large hiatal hernia with bilateral lower lobe infiltrate correlate for interstitial pneumonitis or mild venous congestion.
[2021-05-24] MEDS ORDERED: PIPERACILLIN-TAZOBACTAM 3.375 GM in SODIUM CHLORIDE 0.9% 100 ML IVPB STA (16:07)
[2021-05-24] MEDS ORDERED: SODIUM CHLORIDE 0.9% 1,000 ML IV ONE ×2 (16:08→16:28)
--- NOTE | 2021-05-24 17:28 | XR ---
EXAMINATION TYPE: XR chest 1V portable DATE OF EXAM: 05/24/2021 COMPARISON: 05/24/2021 HISTORY: Check tube placement TECHNIQUE: Single view FINDINGS: There is nasogastric tube and the tip is probably in the gastric fundus. There is some infi ltrate and atelectasis at both lung bases. There is no gross heart failure. Heart size is normal. Tho racic aorta is atheromatous. There is hiatal hernia. IMPRESSION: Infiltrates at the lung bases without change compared to the exam 2 hours ago. No heart f ailure. NG tube in the stomach.
[2021-05-24 17:51] LABS: Basophils % (A) 0 %; Eosinophils # (A) 0.1 k/uL (0-0.7); Eosinophils % (A) 0 %; HCT 42.2 % (39.0-53.0); HGB 14.2 gm/dL (13.0-17.5); Lymphocytes # (A) 0.5 k/uL (1.0-4.8); Lymphocytes % (A) 3 %; MCHC 33.7 g/dL (31.0-37.0); MCV 97.9 fL (80.0-100.0); Mean Platelet Volume 7.9; Monocytes # (A) 0.6 k/uL (0-1.0); Monocytes % (A) 4 %; Neutrophils # (A) 15.3 k/uL (1.3-7.7); Neutrophils % (A) 92 %; Platelet Count 222 k/uL (150-450); RBC 4.31 m/uL (4.30-5.90); RDW 12.1 % (11.5-15.5); WBC 16.6 k/uL (3.8-10.6)
[2021-05-24 20:30] LABS: Glucose,Whole Blood 289 mg/dL (75-99)
[2021-05-24] MEDS ORDERED: DEXTROSE 5%-0.9% NACL 1,000 ML IV SCH (20:30)
[2021-05-24] MEDS: SODIUM CHLORIDE 0.9% 1,000 ML IV SCH (21:45)
[2021-05-24] MEDS: PANTOPRAZOLE 40 MG/10 ML VIAL IVP SCH (21:45)
[2021-05-24] MEDS: INSULIN ASPART (NovoLOG) 100 UNIT/ML VIAL SQ SCH (21:45)
[2021-05-24] MEDS: LIDOCAINE 5% PATCH TOPICAL SCH (22:21)
[2021-05-25] MEDS: PIPERACILLIN-TAZOBACTAM 3.375 GM in SODIUM CHLORIDE 0.9% 100 ML IVPB SCH ×3 (00:30→16:15)
[2021-05-25 01:59] LABS: Appearance,Urine Clear (Clear); Bilirubin,Urine Negative (Negative); Blood,Urine Trace (Negative); Color,Urine Yellow; Glucose,Urine (UA) 4+ (Negative); Ketones,Urine 1+ (Negative); Leukocyte Esterase,Urine Negative (Negative); Mucus,Urine Rare /hpf; Nitrite,Urine Negative (Negative); PH, Urine 6.5 (5.0-8.0); Protein,Urine 1+ (Negative); RBC,Urine 1 /hpf (0-5); Specific Gravity,Urine 1.031 (1.001-1.035); Urobilinogen,Urine <2.0 mg/dL (<2.0); WBC,Urine 1 /hpf (0-5)
[2021-05-25 02:09] LABS: Glucose,Whole Blood 141 mg/dL (75-99)
[2021-05-25] MEDS: INSULIN ASPART (NovoLOG) 100 UNIT/ML VIAL SQ SCH ×4 (02:47→20:34)
[2021-05-25 06:57] LABS: African American GFR (CKD) >90 (>60 ml/min/1.73 sqM); Anion Gap 12 mmol/L; Blood Urea Nitrogen 22 mg/dL (9-20); Calcium 9.2 mg/dL (8.4-10.2); Carbon Dioxide 27 mmol/L (22-30); Chloride 99 mmol/L (98-107); Glucose 183 mg/dL (74-99); Non-African American GFR(CKD) 79 (>60 ml/min/1.73 sqM); Potassium 3.7 mmol/L (3.5-5.1); Sodium 138 mmol/L (137-145)
[2021-05-25 07:13] LABS: Glucose,Whole Blood 174 mg/dL (75-99)
[2021-05-25] MEDS: PANTOPRAZOLE 40 MG/10 ML VIAL IVP SCH ×2 (07:55→20:34)
[2021-05-25] MEDS: SODIUM CHLORIDE 0.9% 1,000 ML IV SCH (07:57)
[2021-05-25 08:34] LABS: Basophils % (A) 0 %; Eosinophils % (A) 0 %; HCT 41.4 % (39.0-53.0); HGB 13.8 gm/dL (13.0-17.5); Lymphocytes # (A) 0.8 k/uL (1.0-4.8); Lymphocytes % (A) 6 %; MCH 33.2 pg (25.0-35.0); MCHC 33.4 g/dL (31.0-37.0); MCV 99.3 fL (80.0-100.0); Mean Platelet Volume 8.7; Monocytes # (A) 0.6 k/uL (0-1.0); Monocytes % (A) 5 %; Neutrophils # (A) 11.9 k/uL (1.3-7.7); Neutrophils % (A) 89 %; Platelet Count 232 k/uL (150-450); RBC 4.17 m/uL (4.30-5.90); RDW 12.2 % (11.5-15.5); WBC 13.4 k/uL (3.8-10.6)
[2021-05-25 11:29] LABS: Glucose,Whole Blood 197 mg/dL (75-99)
--- NOTE | 2021-05-25 11:37 | P.GSHP ---
History of Present Illness H&P Date: 05/25/21 CHIEF COMPLAINT: Hematemesis, gastric outlet obstruction HISTORY OF PRESENT ILLNESS: This is an 85-year-old male who was a transfer from [place] with complaints of vomiting for the last 2 weeks which he reports has been dark. He has a past medical history of diabetes mellitus, hyperlipidemia, GERD, and large paraesophageal hernia. He was recently admitted to the hospital for dysphagia about 3 weeks ago. At that time on the CT of the abdomen showed questionable gastric outlet obstruction. He underwent an EGD with Dr. Larson on 05/01/2021 with findings of large paraesophageal hernia, no evidence of gastric outlet obstruction or retained food, linear erosions in d istal esophagus consistent with LA grade B reflux esophagitis, or tordistal esophagus. Gen. surgery was on consult and the patient was seen by Dr. Arthur who recommended patient have follow-up with [facility] for possible paraesophageal hernia repair. According to the patient he has not had any follow-up. The patient reports that he has been vomiting up to 6 times a day, which she reports as being dark. States though he has been eating well at home. He is not on any anticoagulation other than a low dose aspirin daily. Patient states last time he vomited was prior to coming to the hospital. He denies any black stool or bright red blood in his stool. He does take Protonix at home. He is denying any abdominal pain. Patient has an NG tube in place with approximately 300 mL of dark output. PAST MEDICAL HISTORY: See list. PAST SURGICAL HISTORY: See list. MEDICATIONS: See list. ALLERGIES: See list. SOCIAL HISTORY: No illicit drug use. REVIEW OF SYSTEMS: CONSTITUTIONAL: Denies fever or chills. HEENT: Denies blurred vision, vision changes, or eye pain. Denies hemoptysis CARDIOVASCULAR: Denies chest pain or pressure. RESPIRATORY: No shortness of breath. GASTROINTESTINAL: See HPI for pertinent findings HEMATOLOGIC: Denies bleeding disorders. GENITOURINARY: Denies any blood in urine or increased urinary frequency. SKIN: Denies pruitis. Denies rash. PHYSICAL EXAM: VITAL SIGNS: Reviewed GENERAL: Well-developed in no acute distress. HEENT: No sclera icterus. Extraocular movements grossly intact. Moist buccal mucosa. Head is atraumatic, normocephalic. No nasal drainage.NG tube in place. ABDOMEN: Soft. Thin. Nondistended. Nontender. NEUROLOGIC: Alert and oriented. Cranial nerves II through XII grossly intact. LABORATORY DATA: WBC 13.4 hemoglobin 13.8 hematocrit 41 platelet count 232,000 Sodium 138 potassium 3.7 BUN 22 creatinine 0.9 glucose 183 BNP 1240 IMAGING: CT per outside hospital reports large prior esophageal hernia with possible gastric outlet obstruction ASSESSMENT: 1. Vomiting with coffee-ground emesis 2. Large paraesophageal hernia 3. Possible gastric outlet obstruction per CT abdomen and pelvis 4. GERD PLAN: -Keep NPO -Protonix for GI prophylaxis -EGD this afternoon -Further recommendations forthcoming The impression and plan of care has been dictated as directed. I performed a history and examination of this patient, discussed the same with the dictator. I agree with the dictator's note ,documented as a scribe. Any additional findings or plans will be noted. Past Medical History Past Medical History: Diabetes Mellitus, GERD/Reflux, Hyperlipidemia Additional Past Medical History / Comment(s): sees Dr Aayush Larson in [place] History of Any Multi-Drug Resistant Organisms: None Reported Past Surgical History: Back Surgery Additional Past Surgical History / Comment(s): Esophagus sx 2000 Past Anesthesia/Blood Transfusion Reactions: No Reported Reaction Past Psychological History: Anxiety, Depression Smoking Status: Never smoker Past Alcohol Use History: None Reported Past Drug Use History: None Reported - Past Family History Mother Family Medical History: Chest Pain / Angina, Myocardial Infarction (CT) Additional Family Medical History / Comment(s): age 85 Father Family Medical History: Cancer Additional Family Medical History / Comment(s): pancreatic cancer age 90 Medications and Allergies Home Medications Medication Instructions Recorded Confirmed Type Aspirin EC [Ecotrin Low Dose] 81 mg PO DAILY@0908/01/20 05/24/21 History Nitroglycerin Sl Tabs [Nitrostat] 0.4 mg SL Q5M PRN 08/01/20 05/24/21 History Famotidine [Pepcid] 20 mg PO DAILY@89904/30/21 05/24/21 History Ondansetron [Zofran] 4 mg PO Q6H PRN 04/30/21 05/24/21 History Acetaminophen Tab [Tylenol] 650 mg PO Q6HR PRN tab 05/03/21 05/24/21 Rx Calcium Carbonate [Tums] 1,000 mg PO Q4HR PRN tab 05/03/21 05/24/21 Rx Lactulose [Cephulac] 20 gm PO DAILY PRN ml 05/03/21 05/24/21 Rx Mag Hydrox/Al Hydrox/Simeth 15 ml PO Q6HR PRN ml 05/03/21 05/24/21 Rx [Maalox] Magnesium Hydroxide [Milk of 2,400 mg PO DAILY PRN ml 05/03/21 05/24/21 Rx Magnesia Concentrate] Melatonin 3 mg PO HS PRN tablet 05/03/21 05/24/21 Rx Atorvastatin [Lipitor] 10 mg PO HS@2100 05/24/21 05/24/21 History Bisacodyl 5 mg PO Q48H PRN 05/24/21 05/24/21 History House Supplement 120 ml PO DAILY@1400 05/24/21 05/24/21 History Metoclopramide HCl [Reglan] 5 mg PO Q6H PRN 05/24/21 05/24/21 History Pantoprazole Sodium [Protonix] 40 mg PO BID@0900,1700 05/24/21 05/24/21 History Tamsulosin HCl [Flomax] 0.4 mg PO DAILY@0900 05/24/21 05/24/21 History traMADol HCl [Ultram] 50 mg PO Q8H PRN 05/24/21 05/24/21 History Allergies Allergy/AdvReac Type Severity Reaction Status Date / Time No Known Allergies Allergy Verified 05/24/21 14:50 Surgical - Exam Vital Signs Temp Pulse Resp BP Pulse Ox 97.2 F L 106 H 20 150/98 96 05/24/21 13:29 05/24/21 13:29 05/24/21 13:29 05/24/21 13:29 05/24/21 13:29 Results - Labs 05/25/21 05:38 05/25/21 05:38 Abnormal Lab Results - Last 24 Hours (Table) 05/24/21 05/24/21 05/24/21 Range/Units 14:11 14:11 14:11 WBC 18.0 H (3.8-10.6) k/uL RBC 4.29 L (4.30-5.90) m/uL Neutrophils # 16.6 H (1.3-7.7) k/uL Lymphocytes # 0.5 L (1.0-4.8) k/uL PT 12.6 H (9.0-12.0) sec INR 1.2 H (<1.2) APTT 18.5 L (22.0-30.0) sec Sodium 135 L (137-145) mmol/L Potassium 3.3 L (3.5-5.1) mmol/L Carbon Dioxide 20 L (22-30) mmol/L BUN (9-20) mg/dL Glucose 241 H (74-99) mg/dL POC Glucose (mg/dL) (75-99) mg/dL Total Bilirubin 1.7 H (0.2-1.3) mg/dL Urine Protein (Negative) Urine Glucose (UA) (Negative) Urine Ketones (Negative) Urine Blood (Negative) Urine Mucus (None) /[facility] 05/24/21 05/24/21 05/25/21 Range/Units 17:36 20:29 01:36 WBC 16.6 H (3.8-10.6) k/uL RBC (4.30-5.90) m/uL Neutrophils # 15.3 H (1.3-7.7) k/uL Lymphocytes # 0.5 L (1.0-4.8) k/uL PT (9.0-12.0) sec INR (<1.2) APTT (22.0-30.0) sec Sodium (137-145) mmol/L Potassium (3.5-5.1) mmol/L Carbon Dioxide (22-30) mmol/L BUN (9-20) mg/dL Glucose (74-99) mg/dL POC Glucose (mg/dL) 289 H (75-99) mg/dL Total Bilirubin (0.2-1.3) mg/dL Urine Protein 1+ H (Negative) Urine Glucose (UA) 4+ H (Negative) Urine Ketones 1+ H (Negative) Urine Blood Trace H (Negative) Urine Mucus Rare H (None) /[facility] 05/25/21 05/25/21 05/25/21 Range/Units 02:08 05:38 05:38 WBC 13.4 H (3.8-10.6) k/uL RBC 4.17 L (4.30-5.90) m/uL Neutrophils # 11.9 H (1.3-7.7) k/uL Lymphocytes # 0.8 L (1.0-4.8) k/uL PT (9.0-12.0) sec INR (<1.2) APTT (22.0-30.0) sec Sodium (137-145) mmol/L Potassium (3.5-5.1) mmol/L Carbon Dioxide (22-30) mmol/L BUN 22 H (9-20) mg/dL Glucose 183 H (74-99) mg/dL POC Glucose (mg/dL) 141 H (75-99) mg/dL Total Bilirubin (0.2-1.3) mg/dL Urine Protein (Negative) Urine Glucose (UA) (Negative) Urine Ketones (Negative) Urine Blood (Negative) Urine Mucus (None) /[facility] 05/25/21 Range/Units 07:12 WBC (3.8-10.6) k/uL RBC (4.30-5.90) m/uL Neutrophils # (1.3-7.7) k/uL Lymphocytes # (1.0-4.8) k/uL PT (9.0-12.0) sec INR (<1.2) APTT (22.0-30.0) sec Sodium (137-145) mmol/L Potassium (3.5-5.1) mmol/L Carbon Dioxide (22-30) mmol/L BUN (9-20) mg/dL Glucose (74-99) mg/dL POC Glucose (mg/dL) 174 H (75-99) mg/dL Total Bilirubin (0.2-1.3) mg/dL Urine Protein (Negative) Urine Glucose (UA) (Negative) Urine Ketones (Negative) Urine Blood (Negative) Urine Mucus (None) /[facility] Diabetes panel 05/24/21 05/25/21 Range/Units 14:11 05:38 Sodium 135 L 138 (137-145) mmol/L Potassium 3.3 L 3.7 (3.5-5.1) mmol/L Chloride 98 99 (98-107) mmol/L Carbon Dioxide 20 L 27 (22-30) mmol/L BUN 20 22 H (9-20) mg/dL Creatinine 0.75 0.90 (0.66-1.25) mg/dL Glucose 241 H 183 H (74-99) mg/dL Calcium 9.5 9.2 (8.4-10.2) mg/dL AST 34 (17-59) U/L ALT 27 (4-49) U/L Alkaline Phosphatase 125 (38-126) U/L Total Protein 7.0 (6.3-8.2) g/dL Albumin 4.0 (3.5-5.0) g/dL Calcium panel 05/24/21 05/25/21 Range/Units 14:11 05:38 Calcium 9.5 9.2 (8.4-10.2) mg/dL Albumin 4.0 (3.5-5.0) g/dL Pituitary panel 05/24/21 05/25/21 Range/Units 14:11 05:38 Sodium 135 L 138 (137-145) mmol/L Potassium 3.3 L 3.7 (3.5-5.1) mmol/L Chloride 98 99 (98-107) mmol/L Carbon Dioxide 20 L 27 (22-30) mmol/L BUN 20 22 H (9-20) mg/dL Creatinine 0.75 0.90 (0.66-1.25) mg/dL Glucose 241 H 183 H (74-99) mg/dL Calcium 9.5 9.2 (8.4-10.2) mg/dL Adrenal panel 05/24/21 05/25/21 Range/Units 14:11 05:38 Sodium 135 L 138 (137-145) mmol/L Potassium 3.3 L 3.7 (3.5-5.1) mmol/L Chloride 98 99 (98-107) mmol/L Carbon Dioxide 20 L 27 (22-30) mmol/L BUN 20 22 H (9-20) mg/dL Creatinine 0.75 0.90 (0.66-1.25) mg/dL Glucose 241 H 183 H (74-99) mg/dL Calcium 9.5 9.2 (8.4-10.2) mg/dL Total Bilirubin 1.7 H (0.2-1.3) mg/dL AST 34 (17-59) U/L ALT 27 (4-49) U/L Alkaline Phosphatase 125 (38-126) U/L Total Protein 7.0 (6.3-8.2) g/dL Albumin 4.0 (3.5-5.0) g/dL
--- NOTE | 2021-05-25 11:50 | ECHOF ---
Referral Reason:syncope MEASUREMENTS -------- HEIGHT: 175.3 cm WEIGHT: 63.5 kg BP: 159/83 RVIDd: 3.3 cm (< 3.3) IVSd: 1.0 cm (0.6 - 1.1) LVIDd: 4.0 cm (3.9 - 5.3) LVPWd: 1.0 cm (0.6 - 1.1) IVSs: 1.4 cm LVIDs: 2.5 cm LVPWs: 1.6 cm LAESV Index (A-L): 23.55 ml/m Ao Diam: 3.2 cm (2.0 - 3.7) AV Cusp: 2.1 cm (1.5 - 2.6) MV E Joseph: 0.67 m/s MV DecT: 149 ms MV A Joseph: 1.16 m/s MV E/A Ratio: 0.58 AR PHT: 473 ms RAP: 5.00 mmHg RVSP: 30.90 mmHg FINDINGS -------- Sinus rhythm. This was a technically adequate study. The left ventricular size is normal. There is mild concentric left ventricular hypertrophy. Overa ll left ventricular systolic function is normal with, an EF between 55 - 60 %. The right ventricle is mildly enlarged. Normal LA size by volume 22+/-6 ml/m2. The right atrial size is normal. Interatrial and interventricular septum intact. The aortic valve is trileaflet and appears structurally normal. There is awxe-sl-pmouyhrw aortic re gurgitation. Kqhf-zq-fplsfhvo mitral regurgitation is present. Mild tricuspid regurgitation present. There is no evidence of pulmonary hypertension. The right v entricular systolic pressure, as measured by Doppler, is 30.90mmHg. There is no pulmonic regurgitation present. The aortic root size is normal. IVC Not well visulized. There is no pericardial effusion. CONCLUSIONS -------- 1. The left ventricular size is normal. 2. There is mild concentric left ventricular hypertrophy. 3. Overall left ventricular systolic function is normal with, an EF between 55 - 60 %. 4. The right ventricle is mildly enlarged. 5. There is cakj-xw-lkzmjqqb aortic regurgitation. 6. Mgsn-xk-ffhxyrbd mitral regurgitation is present. 7. Mild tricuspid regurgitation present. 8. There is no evidence of pulmonary hypertension. 9. The right ventricular systolic pressure, as measured by Doppler, is 30.90mmHg. [employer]: Raegan Jimenez RDCS
[2021-05-25] MEDS ORDERED: LIDOCAINE 1% INJ 10MG/ML (20 ML MDV) ONE (11:59)
[2021-05-25] MEDS ORDERED: PHENYLEPHRINE-0.9% NACL SYG 1,000 MCG/10 ML SYRINGE ONE (11:59)
[2021-05-25] MEDS ORDERED: PROPOFOL 10 MG/ML 20 ML VIAL IV ONE (11:59)
[2021-05-25] MEDS ORDERED: IV FLUID CONTINUATION 1,000 ML IV ONE (12:06)
--- NOTE | 2021-05-25 12:23 | P.OP ---
Date of Procedure: 05/25/21 Preoperative Diagnosis: Gastrointestinal obstruction Hiatal hernia Postoperative Diagnosis: Hiatal hernia Gastric obstruction with large amount of fluid in stomach Procedure(s) Performed: EGD Anesthesia: MAC Surgeon: Adrien Roberts Pathology: none sent Condition: stable Disposition: PACU Description of Procedure: The patient's placed on the endoscopy table in the lateral position. He received IV sedation. The gastro-placed oropharynx passed in the esophagus and stomach. Could not be passed through the pylorus. The stomach had a large amount of melanotic fluid within it. This was aspirated is also some solid food components. Several times made to find pylorus was impossible. She had a large hiatal hernia. The gastroscope was then brought back. A nasogastric tube placed and stomach. Scope was withdrawn. Th
[2021-05-25] MEDS ORDERED: POTASSIUM CHLORIDE 10 MEQ in WATER FOR INJECTION 1 100ML.BAG IVPB STA ×2 (12:55→14:51)
[2021-05-25 16:07] LABS: Hemoglobin A1C 8.7 % (4.0-6.0)
[2021-05-25 16:21] LABS: Glucose,Whole Blood 171 mg/dL (75-99)
[2021-05-25 20:28] LABS: Glucose,Whole Blood 161 mg/dL (75-99)
[2021-05-25] MEDS: LIDOCAINE 5% PATCH TOPICAL SCH (20:33)
[2021-05-26] MEDS: PIPERACILLIN-TAZOBACTAM 3.375 GM in SODIUM CHLORIDE 0.9% 100 ML IVPB SCH ×3 (01:02→17:08)
[2021-05-26 02:48] LABS: Glucose,Whole Blood 149 mg/dL (75-99)
[2021-05-26] MEDS: INSULIN ASPART (NovoLOG) 100 UNIT/ML VIAL SQ SCH ×5 (03:37→20:54)
[2021-05-26] MEDS: SODIUM CHLORIDE 0.9% 1,000 ML IV SCH ×2 (03:38→11:53)
[2021-05-26 07:09] LABS: Glucose,Whole Blood 159 mg/dL (75-99)
[2021-05-26] MEDS: PANTOPRAZOLE 40 MG/10 ML VIAL IVP SCH (07:15)
[2021-05-26 08:11] LABS: Basophils % (A) 0 %; Eosinophils % (A) 0 %; HCT 38.4 % (39.0-53.0); Lymphocytes # (A) 0.7 k/uL (1.0-4.8); Lymphocytes % (A) 5 %; MCH 32.8 pg (25.0-35.0); MCHC 33.7 g/dL (31.0-37.0); MCV 97.1 fL (80.0-100.0); Mean Platelet Volume 8.1; Monocytes # (A) 0.6 k/uL (0-1.0); Monocytes % (A) 4 %; Neutrophils # (A) 12.1 k/uL (1.3-7.7); Neutrophils % (A) 90 %; Platelet Count 207 k/uL (150-450); RBC 3.95 m/uL (4.30-5.90); RDW 12.6 % (11.5-15.5); WBC 13.4 k/uL (3.8-10.6)
[2021-05-26 08:29] LABS: African American GFR (CKD) >90 (>60 ml/min/1.73 sqM); Anion Gap 11 mmol/L; Blood Urea Nitrogen 22 mg/dL (9-20); Calcium 8.8 mg/dL (8.4-10.2); Carbon Dioxide 25 mmol/L (22-30); Chloride 104 mmol/L (98-107); Glucose 174 mg/dL (74-99); Non-African American GFR(CKD) 83 (>60 ml/min/1.73 sqM); Potassium 3.1 mmol/L (3.5-5.1); Sodium 140 mmol/L (137-145)
--- NOTE | 2021-05-26 09:31 | P.HPIM ---
History of Present Illness Please consider this note as consult note This is a pleasant 85 years old male with past medical history of Diabetes Mellitus, GERD/Reflux, Hyperlipidemia. Also there is reports of history of Alzheimer dementia, difficulty walking, weakness. He was sent from senior living to [facility] for possible GI bleed. Patient had dark emesis per reports. Patient kind of given limited history, also his hard hearing. But he answers appropriately. He is calm. As per report patient came from with several day history of intermittent nausea and vomiting. He does have some abdominal cramping in the upper area. He thinks he come to the hospital because he feels while he was having lunch which lasted only for a few seconds followed by vomiting. Denies blood but there is dark vomitus. However patient denies chest pain or dyspnea. No coughing. No abdominal pain. He didn't complaints about his bowel movement or urine CAT scan was done and it showed possibly a gastric outlet obstruction. From [facility] urinalysis showing specific gravity 1.03. Glucose more than 1000. Leukocytosis negative. CT of the abdomen showing persistent massive fluid-filled dilatations of the stomach. Suspected to be the result of paraesophageal hernia. There is resultant gastric outlet obstruction. Nodular airspace opacity in the dependent aspect of the right lower lobe and new groundglass opacity in the inferior aspect of the right middle lobe correlated for pneumonia. Fecal impaction WBC is 18 K. Hematocrit is 40.5. Platelet 235. INR is 1.3. Lactic acid elevated 5.4. Sodium 137. Potassium 3.5. ALT 15, AST 19, creatinine 1.2 total bilirubin is 1.5. Last month he was at this facility for similar complaint and evaluated by surgeon On admission patient is afebrile, tachycardic with heart rate 160 114. Sharp is 129/91. He is saturating 95% on room air. No tachypnea. However he has evidence of leukocytosis 18 K and 16.6. Hemoglobin is stable at 14.2. INR is 1.2. Sodium 135, potassium 3.3, creatinine is normal at 0.75. Liver enzymes not elevated. Bilirubin slightly up at 1.7. Glucose 289. Chest x-ray: Large hiatal hernia with bilateral lower lobe infiltrate, related for interstitial pneumonitis or mild venous congestion Coronavirus not detected NG tube was placed in the emergency room and he was started on Zosyn and normal sling at 75 mL/h Review of Systems CONSTITUTIONAL: No fever, no malaise, no fatigue. HEENT: No recent visual problems or hearing problems. Denied any sore throat. CARDIOVASCULAR: No orthopnea, PND, no palpitations, no syncope. PULMONARY: No shortness of breath, no cough, no hemoptysis. GASTROINTESTINAL: No diarrhea, no nausea, no vomiting, no abdominal pain. Normoactive bowel sounds. NEUROLOGICAL: No headaches, no weakness, no numbness. HEMATOLOGICAL: Denies any bleeding or petechiae. GENITOURINARY: Denies any burning micturition, frequency, or urgency. MUSCULOSKELETAL/RHEUMATOLOGICAL: Denies any joint pain, swelling, or any muscle pain. ENDOCRINE: Denies any polyuria or polydipsia. Past Medical History Past Medical History: Diabetes Mellitus, GERD/Reflux, Hyperlipidemia Additional Past Medical History / Comment(s): sees Dr Aayush Larson in [place] History of Any Multi-Drug Resistant Organisms: None Reported Past Surgical History: Back Surgery Additional Past Surgical History / Comment(s): Esophagus sx 2000 Past Anesthesia/Blood Transfusion Reactions: No Reported Reaction Past Psychological History: Anxiety, Depression Smoking Status: Never smoker Past Alcohol Use History: None Reported Past Drug Use History: None Reported - Past Family History Mother Family Medical History: Chest Pain / Angina, Myocardial Infarction (PR) Additional Family Medical History / Comment(s): age 85 Father Family Medical History: Cancer Additional Family Medical History / Comment(s): pancreatic cancer age 90 Medications and Allergies Home Medications Medication Instructions Recorded Confirmed Type Aspirin EC [Ecotrin Low Dose] 81 mg PO DAILY@0900 08/01/20 05/24/21 History Nitroglycerin Sl Tabs [Nitrostat] 0.4 mg SL Q5M PRN 08/01/20 05/24/21 History Famotidine [Pepcid] 20 mg PO DAILY@0900 04/30/21 05/24/21 History Ondansetron [Zofran] 4 mg PO Q6H PRN 04/30/21 05/24/21 History Acetaminophen Tab [Tylenol] 650 mg PO Q6HR PRN tab 05/03/21 05/24/21 Rx Calcium Carbonate [Tums] 1,000 mg PO Q4HR PRN tab 05/03/21 05/24/21 Rx Lactulose [Cephulac] 20 gm PO DAILY PRN ml 05/03/21 05/24/21 Rx Mag Hydrox/Al Hydrox/Simeth 15 ml PO Q6HR PRN ml 05/03/21 05/24/21 Rx [Maalox] Magnesium Hydroxide [Milk of 2,400 mg PO DAILY PRN ml 05/03/21 05/24/21 Rx Magnesia Concentrate] Melatonin 3 mg PO HS PRN tablet 05/03/21 05/24/21 Rx Atorvastatin [Lipitor] 10 mg PO HS@2100 05/24/21 05/24/21 History Bisacodyl 5 mg PO Q48H PRN 05/24/21 05/24/21 History House Supplement 120 ml PO DAILY@1400 05/24/21 05/24/21 History Metoclopramide HCl [Reglan] 5 mg PO Q6H PRN 05/24/21 05/24/21 History Pantoprazole Sodium [Protonix] 40 mg PO BID@0900,1700 05/24/21 05/24/21 History Tamsulosin HCl [Flomax] 0.4 mg PO DAILY@0900 05/24/21 05/24/21 History traMADol HCl [Ultram] 50 mg PO Q8H PRN 05/24/21 05/24/21 History Allergies Allergy/AdvReac Type Severity Reaction Status Date / Time No Known Allergies Allergy Verified 05/24/21 14:50 Physical Exam Vitals: Vital Signs Temp Pulse Resp BP Pulse Ox 05/24/21 13:29 97.2 F L 106 H 20 150/98 96 Intake and Output 05/24/21 05/24/21 05/24/21 06:59 14:59 22:59 Other: Weight 63.503 kg -GENERAL: The patient is alert and oriented x2-3, not in any acute distress. Well developed, well nourished. HEENT: Pupils are round and equally reacting to light. EOMI. No scleral icterus. No conjunctival pallor. Normocephalic, atraumatic. No pharyngeal erythema. No thyromegaly. CARDIOVASCULAR: S1 and S2 present. No murmurs, rubs, or gallops. PULMONARY: Chest is clear to auscultation, no wheezing or crackles. ABDOMEN: Soft, nontender, nondistended, normoactive bowel sounds. No palpable organomegaly. MUSCULOSKELETAL: No joint swelling or deformity. EXTREMITIES: No cyanosis, clubbing, or pedal edema. NEUROLOGICAL: Gross neurological examination did not reveal any focal deficits. SKIN: No rashes. No petechiae Results CBC & Chem 7: 05/26/21 07:00 05/26/21 07:00 Labs: Abnormal Lab Results - Last 24 Hours (Table) 05/24/21 05/24/21 05/24/21 Range/Units 14:11 14:11 14:11 WBC 18.0 H (3.8-10.6) k/uL RBC 4.29 L (4.30-5.90) m/uL Neutrophils # 16.6 H (1.3-7.7) k/uL Lymphocytes # 0.5 L (1.0-4.8) k/uL PT 12.6 H (9.0-12.0) sec INR 1.2 H (<1.2) APTT 18.5 L (22.0-30.0) sec Sodium 135 L (137-145) mmol/L Potassium 3.3 L (3.5-5.1) mmol/L Carbon Dioxide 20 L (22-30) mmol/L Glucose 241 H (74-99) mg/dL Total Bilirubin 1.7 H (0.2-1.3) mg/dL Assessment and Plan Assessment: Vomiting with possible GI bleed Large hiatal hernia gastric outlet obstruction Aspiration pneumonia is suspected Possible syncope Diabetes mellitus History of GERD Hyperlipidemia Plan: This is a pleasant 84 years old male who presents with vomiting and gastric output obstruction is suspected, possible GI bleed and aspiration pneumonia Continue with NG tube Monitor hemoglobin and continue with IV Protonix Surgery team primary team on the case and following the patient closely. Continue with Zosyn and gentle hydration Check echocardiogram Labs and medication were reviewed.. Continue same treatment. Continue with symptomatic treatment. Resume home medication. Monitor lytes and vitals. DVT and GI prophylaxis. Further recommendations depends on the clinical course of the patient DVT prophylaxis: No anticoagulation in view of possible GI bleed GI Prophylaxis: Ppi Prognosis is guarded
[2021-05-26] MEDS ORDERED: IV FLUID CONTINUATION 200 ML IV ONE (09:36)
--- NOTE | 2021-05-26 09:42 | P.PN ---
Subjective This is a pleasant 85 years old male with past medical history of Diabetes Mellitus, GERD/Reflux, Hyperlipidemia. Also there is reports of history of Alzheimer dementia, difficulty walking, weakness. He was sent [facility] to [facility] for possible GI bleed. Patient had dark emesis per reports. Patient kind of given limited history, also his hard hearing. But he answers appropriately. He is calm. As per report patient came from [facility] with several day history of intermittent nausea and vomiting. He does have some abdominal cramping in the upper area. He thinks he come to the hospital because he feels while he was having lunch which lasted only for a few seconds followed by vomiting. Denies blood but there is dark vomitus. However patient denies chest pain or dyspnea. No coughing. No abdominal pain. He didn't complaints about his bowel movement or urine CAT scan was done and it showed possibly a gastric outlet obstruction. From [facility] urinalysis showing specific gravity 1.03. Glucose more than 1000. Leukocytosis negative. CT of the abdomen showing persistent massive fluid-filled dilatations of the stomach. Suspected to be the result of paraesophageal hernia. There is resultant gastric outlet obstruction. Nodular airspace opacity in the dependent aspect of the right lower lobe and new groundglass opacity in the inferior aspect of the right middle lobe correlated for pneumonia. Fecal impaction WBC is 18 K. Hematocrit is 40.5. Platelet 235. INR is 1.3. Lactic acid el evated 5.4. Sodium 137. Potassium 3.5. ALT 15, AST 19, creatinine 1.2 total bilirubin is 1.5. Last month he was at this facility for similar complaint and evaluated by surgeon On admission patient is afebrile, tachycardic with heart rate 160 114. Sharp is 129/91. He is saturating 95% on room air. No tachypnea. However he has evidence of leukocytosis 18 K and 16.6. Hemoglobin is stable at 14.2. INR is 1.2. Sodium 135, potassium 3.3, creatinine is normal at 0.75. Liver enzymes not elevated. Bilirubin slightly up at 1.7. Glucose 289. Chest x-ray: Large hiatal hernia with bilateral lower lobe infiltrate, related for interstitial pneumonitis or mild venous congestion Coronavirus not detected NG tube was placed in the emergency room and he was started on Zosyn and normal sling at 75 mL/h 05/25/2021 Patient sitting in chair comfortable, NG tube is in a Place with about 500 mL of dark colored aspirate in his back He denies chest pain or dyspnea. No abdominal pain. He is alert,. Vitals are stable. Hemoglobin is 13.8. WBCs trending down to 13.4. Creatinine normal 0.9. Hemogl obin A1c 8.7% patient underwent EGD which was suboptimal, but could not pass through the pylorus. Per reports stomach had large amount of melanotic fluid within it. He remains on a Protonix, normal saline 75 mL/h and Zosyn Objective - Vital Signs Vital signs: Vital Signs Temp 97.4 F L 05/25/21 14:00 Pulse 82 05/25/21 14:00 Resp 12 05/25/21 14:00 BP 119/71 05/25/21 14:00 Pulse Ox 96 05/25/21 14:00 Intake & Output 05/24/21 05/25/21 05/25/21 18:59 06:59 18:59 Intake Total 250 Output Total 1500 Balance -1500 250 Weight 63.503 kg Intake: IV 250 Output: Urine 1500 Other: # Voids 1 - Exam -GENERAL: The patient is alert and oriented x2-3, not in any acute distress. Well developed, well nourished. HEENT: Pupils are round and equally reacting to light. EOMI. No scleral icterus. No conjunctival pallor. Normocephalic, atraumatic. No pharyngeal erythema. No thyromegaly. CARDIOVASCULAR: S1 and S2 present. No murmurs, rubs, or gallops. PULMONARY: Chest is clear to auscultation, no wheezing or crackles. -ABDOMEN: Soft, nontender, nondistended, normoactive bowel sounds. No palpable organomegaly. NG tube in a Place with dark colored aspirate MUSCULOSKELETAL: No joint swelling or deformity. EXTREMITIES: No cyanosis, clubbing, or pedal edema. NEUROLOGICAL: Gross neurological examination did not reveal any focal deficits. SKIN: No rashes. No petechiae - Labs CBC & Chem 7: 05/26/21 07:00 05/26/21 07:00 Labs: Abnormal Lab Results - Last 24 Hours (Table) 05/24/21 05/24/21 05/25/21 Range/Units 17:36 20:29 01:36 WBC 16.6 H (3.8-10.6) k/uL RBC (4.30-5.90) m/uL Neutrophils # 15.3 H (1.3-7.7) k/uL Lymphocytes # 0.5 L (1.0-4.8) k/uL BUN (9-20) mg/dL Glucose (74-99) mg/dL POC Glucose (mg/dL) 289 H (75-99) mg/dL Urine Protein 1+ H (Negative) Urine Glucose (UA) 4+ H (Negative) Urine Ketones 1+ H (Negative) Urine Blood Trace H (Negative) Urine Mucus Rare H (None) /hpf 05/25/21 05/25/21 05/25/21 Range/Units 02:08 05:38 05:38 WBC 13.4 H (3.8-10.6) k/uL RBC 4.17 L (4.30-5.90) m/uL Neutrophils # 11.9 H (1.3-7.7) k/uL Lymphocytes # 0.8 L (1.0-4.8) k/uL BUN 22 H (9-20) mg/dL Glucose 183 H (74-99) mg/dL POC Glucose (mg/dL) 141 H (75-99) mg/dL Urine Protein (Negative) Urine Glucose (UA) (Negative) Urine Ketones (Negative) Urine Blood (Negative) Urine Mucus (None) /hpf 05/25/21 05/25/21 Range/Units 07:12 11:27 WBC (3.8-10.6) k/uL RBC (4.30-5.90) m/uL Neutrophils # (1.3-7.7) k/uL Lymphocytes # (1.0-4.8) k/uL BUN (9-20) mg/dL Glucose (74-99) mg/dL POC Glucose (mg/dL) 174 H 197 H (75-99) mg/dL Urine Protein (Negative) Urine Glucose (UA) (Negative) Urine Ketones (Negative) Urine Blood (Negative) Urine Mucus (None) /hpf Assessment and Plan Assessment: Vomiting with possible GI bleed Large hiatal hernia gastric outlet obstruction Aspiration pneumonia is suspected Possible syncope Diabetes mellitus History of GERD Hyperlipidemia Plan: This is a pleasant 84 years old male who presents with vomiting and gastric output obstruction is suspected, possible GI bleed and aspiration pneumonia Continue with NG tube Monitor hemoglobin and continue with IV Protonix Surgery team primary team on the case and following the patient closely. Continue with Zosyn and gentle hydration while monitoring respiratory status carefully Labs and medication were reviewed.. Continue same treatment. Continue with symptomatic treatment. Resume home medication. Monitor lytes and vitals. DVT and GI prophylaxis. Further recommendations depends on the clinical course of the patient DVT prophylaxis: No anticoagulation in view of possible GI bleed GI Prophylaxis: Ppi Prognosis is guarded
[2021-05-26] MEDS ORDERED: HEPARIN SODIUM,PORCINE/PF 5,000 UNIT/0.5 ML SYRINGE SQ ONE (09:47)
[2021-05-26 09:51] LABS: Glucose,Whole Blood 183 mg/dL (75-99)
[2021-05-26] MEDS: ONDANSETRON 4 MG/2 ML VIAL IVP PRN (09:52)
--- NOTE | 2021-05-26 10:03 | P.PN ---
Progress Note - Text Progress Note Date: 05/26/21 The patient has a large paraesophageal hiatal hernia with gastric obstruction most likely due to gastric torsion. Patient will undergo laparoscopic repair of hiatal hernia today. All his questions was answered with the patient and his family.
[2021-05-26] MEDS ORDERED: HYDROmorphone (PF) 1 MG/ML ONE (10:10)
[2021-05-26] MEDS ORDERED: PROPOFOL 10 MG/ML 20 ML VIAL IV ONE (10:10)
[2021-05-26] MEDS ORDERED: GLYCOPYRROLATE 0.2 MG/ML 2 ML VIAL ONE (10:10)
[2021-05-26] MEDS ORDERED: NEOSTIGMINE 1 MG/ML 10 ML VIAL ONE (10:10)
[2021-05-26] MEDS ORDERED: fentaNYL (PF) 50 MCG/ML 2 ML AMP ONE (10:10)
[2021-05-26] MEDS ORDERED: LIDOCAINE 1% INJ 10MG/ML (20 ML MDV) ONE (10:10)
[2021-05-26] MEDS ORDERED: ROCURONIUM 10 MG/ML (5 ML VIAL) IV ONE (10:10)
[2021-05-26] MEDS ORDERED: SUCCINYLCHOLINE CHLORIDE 100 MG/5 ML SYR IV ONE (10:10)
[2021-05-26] MEDS ORDERED: PHENYLEPHRINE-0.9% NACL SYG 1,000 MCG/10 ML SYRINGE ONE (10:10)
[2021-05-26] MEDS ORDERED: BUPIVACAINE (PF) 0.5% 30 ML VIAL SQ ONE (10:38)
[2021-05-26] MEDS ORDERED: LACTATED RINGERS 1,000 ML IV ONE ×2 (10:58→11:39)
[2021-05-26] MEDS ORDERED: HYDROmorphone 1 MG/ML 1 ML SYRINGE IVP PRN (12:04)
--- NOTE | 2021-05-26 12:04 | P.OP ---
Date of Procedure: 05/26/21 Preoperative Diagnosis: Gastric outlet obstruction Paraesophageal hernia Postoperative Diagnosis: Gastric outlet obstruction Paraesophageal hernia Mesoaxial volvulus volvulus Procedure(s) Performed: Laparoscopic repair of paraesophageal hernia with bio a mesh Tap block Anesthesia: PREM Surgeon: Adrien Roberts Estimated Blood Loss (ml): 5 Pathology: none sent Condition: stable Disposition: PACU Description of Procedure: The patient was placed on the operating table in the supine position. The patient received general anesthesia. And was placed in dorsal lithotomy position. The patient was prepped and draped in the usual sterile fashion. The skin incision sites were anesthetized with 1% local Xylocaine. The skin was incised in the left periumbilical area and then using a blade less 5 mm trocar under direct visualization panel cavity was entered. After adequate insufflation the laparoscope was then placed into the peritoneal cavity. Next a 5 mm trochars placed in the right epigastric position. Another 5 millimeter trocar the right lateral position. Another 5 millimeter trocar in the left lateral position a 5 mm trocar is placed in the left epigastric position. And then the initial 5 mm trocar was exchanged for a 10 mm trocar. The left lateral lobe liver was retracted. Next a tap block was performed by injecting 50 mL of 1% local Xylocaine in the preperitoneal space in 4 locations. This was done under direct vision using the laparoscope. The hiatal hernia was seen. The patient had a mesial axial volvulus of the stomach. The stomach was reduced and the obstruction was relieved. The crural defect was then dissected using the Harmonic scissors device. A 360 crural dissection was performed the esophagus stomach was reduced back into the peritoneal Cavity. The crural defect was then closed using 2-0 Ethibond suture. Next, a piece of bio a mesh was placed over top of the crural repair and secured with 2-0 Ethibond suture. There was no injury seen to the stomach or esophagus. The dilator was then withdrawn. The abdomen was irrigated there is no bleeding seen. The trochars were then withdrawn and then skin incision sites were closed using 3-0 Monocryl suture Steri-Strips are applied. Patient thought procedure well and sent to recovery room in stable condition.
[2021-05-26 12:15] LABS: Glucose,Whole Blood 172 mg/dL (75-99)
[2021-05-26] MEDS: D5-0.45% NACL WITH KCL 20MEQ/L 1,000 ML IV SCH ×2 (13:48→17:08)
[2021-05-26 15:43] VITALS: BMI 20.7
[2021-05-26] MEDS ORDERED: Potassium Replacement Protocol 1 EACH MISC MISCELLANE PRN (16:11)
[2021-05-26] MEDS: POTASSIUM CHLORIDE 10 MEQ in WATER FOR INJECTION 1 100ML.BAG IVPB SCH ×3 (17:08→22:16)
[2021-05-26 17:10] LABS: Glucose,Whole Blood 154 mg/dL (75-99)
[2021-05-26 20:33] LABS: Glucose,Whole Blood 160 mg/dL (75-99)
[2021-05-26] MEDS: LIDOCAINE 5% PATCH TOPICAL SCH (22:16)
[2021-05-26] MEDS: TAMSULOSIN 0.4 MG CAP.ER.24H PO SCH (22:16)
[2021-05-27] MEDS: POTASSIUM CHLORIDE 10 MEQ in WATER FOR INJECTION 1 100ML.BAG IVPB SCH (01:26)
[2021-05-27] MEDS: PIPERACILLIN-TAZOBACTAM 3.375 GM in SODIUM CHLORIDE 0.9% 100 ML IVPB SCH ×3 (01:27→15:46)
[2021-05-27 03:11] LABS: ALT 30 U/L (4-49); AST 49 U/L (17-59); African American GFR (CKD) >90 (>60 ml/min/1.73 sqM); Albumin 2.6 g/dL (3.5-5.0); Alkaline Phosphatase 86 U/L (38-126); Anion Gap 5 mmol/L; Blood Urea Nitrogen 15 mg/dL (9-20); Calcium 8.1 mg/dL (8.4-10.2); Carbon Dioxide 27 mmol/L (22-30); Chloride 103 mmol/L (98-107); Globulin 2.6 g/dL; Glucose 204 mg/dL (74-99); Non-African American GFR(CKD) 90 (>60 ml/min/1.73 sqM); Potassium 3.6 mmol/L (3.5-5.1); Sodium 135 mmol/L (137-145); Total Bilirubin 1.3 mg/dL (0.2-1.3); Total Protein 5.2 g/dL (6.3-8.2)
[2021-05-27] MEDS: SODIUM CHLORIDE 0.9% 1,000 ML IV SCH ×2 (05:51→12:34)
[2021-05-27] MEDS: D5-0.45% NACL WITH KCL 20MEQ/L 1,000 ML IV SCH ×3 (05:53→21:27)
[2021-05-27 06:43] LABS: Glucose,Whole Blood 242 mg/dL (75-99)
[2021-05-27] MEDS: TAMSULOSIN 0.4 MG CAP.ER.24H PO SCH (07:48)
[2021-05-27] MEDS: PANTOPRAZOLE 40 MG/10 ML VIAL IVP SCH (07:49)
[2021-05-27] MEDS: ENOXAPARIN 40 MG/0.4 ML SYRINGE SQ SCH (07:49)
[2021-05-27] MEDS: INSULIN ASPART (NovoLOG) 100 UNIT/ML VIAL SQ SCH ×4 (07:49→21:26)
[2021-05-27 11:35] LABS: Glucose,Whole Blood 164 mg/dL (75-99)
--- NOTE | 2021-05-27 11:46 | P.PN ---
Progress Note - Text Progress Note Date: 05/27/21 Patient is resting comfortably spell. He denies any significant abdominal pain. On exam vital signs are stable. Abdomen soft. There are status was repair of large paraesophageal hernia. Patient will continue receive supportive care.
--- NOTE | 2021-05-27 14:22 | FL ---
EXAMINATION TYPE: FL esophagus cervic/pharynx DATE OF EXAM: 05/27/2021 HISTORY: 85-year-old male rule out leak/obstruction. Patient with hiatal hernia repair. Patient repor ts a history of previous hiatal hernia surgery as well 25 years ago. COMPARISON: Correlation outside CT 05/24/2021 Total fluoroscopy time: 1 minute 32 seconds. Total images: 35. TECHNIQUE: A single contrast esophagram is performed utilizing 50 mL Isovue 350. FINDINGS: This exam is markedly limited. The patient is tilted back as the patient is unable to stand for prolo nged period. The patient is also severely kyphotic. This completely obscures the cervical esophagus a nd upper thoracic esophagus. Administered contrast courses through the esophagus. Moderate tertiary peristaltic waves are demonstr ated. Contrast dependent the collapse within the stomach. No extravasation of contrast is identified on these very limited images. We note prominent air distended bowel which projects above the expected level of the esophagus. Image s are saved for review. We also suspect mild residual postsurgical free air on the right. IMPRESSION: 1. Very limited exam. Contrast traverses the esophagus and dependently falls into the inferior portio n of the stomach which is located in the abdomen and seems to be prominently distended. No extravasat ion of contrast is identified. 2. We note the appearance of air-filled bowel projecting above the expected diaphragm. This will requ alondra further clinical correlation. 3. Also, suspect mild postsurgical free air on the right.
[2021-05-27] MEDS: MORPHINE SULFATE 4 MG/ML SYRINGE IVP PRN (15:46)
[2021-05-27 16:44] LABS: Glucose,Whole Blood 120 mg/dL (75-99)
[2021-05-27 21:02] LABS: Glucose,Whole Blood 215 mg/dL (75-99)
[2021-05-27] MEDS: LIDOCAINE 5% PATCH TOPICAL SCH (21:27)
[2021-05-28] MEDS: PIPERACILLIN-TAZOBACTAM 3.375 GM in SODIUM CHLORIDE 0.9% 100 ML IVPB SCH ×3 (00:55→17:27)
[2021-05-28] MEDS: D5-0.45% NACL WITH KCL 20MEQ/L 1,000 ML IV SCH ×3 (02:20→20:58)
[2021-05-28] MEDS: SODIUM CHLORIDE 0.9% 1,000 ML IV SCH ×2 (02:20→17:30)
[2021-05-28] MEDS: MORPHINE SULFATE 4 MG/ML SYRINGE IVP PRN ×2 (02:21→13:47)
[2021-05-28 06:48] LABS: Glucose,Whole Blood 193 mg/dL (75-99)
[2021-05-28] MEDS: ENOXAPARIN 40 MG/0.4 ML SYRINGE SQ SCH (08:39)
[2021-05-28] MEDS: PANTOPRAZOLE 40 MG/10 ML VIAL IVP SCH (08:40)
[2021-05-28] MEDS: TAMSULOSIN 0.4 MG CAP.ER.24H PO SCH (08:40)
[2021-05-28] MEDS: INSULIN ASPART (NovoLOG) 100 UNIT/ML VIAL SQ SCH ×4 (08:40→20:56)
--- NOTE | 2021-05-28 08:53 | P.PN ---
Subjective Progress Note Date: 05/26/21 85 years old male with past medical history of Diabetes Mellitus, GERD/Reflux, Hyperlipidemia. Also there is reports of history of Alzheimer dementia, difficulty walking, weakness. [facility] for possible GI bleed. Patient had dark emesis per reports. Patient kind of given limited history, also his hard hearing. But he answers appropriately. He is calm. As per report patient came from with several day history of intermittent nausea and vomiting. He does have some abdominal cramping in the upper area. He thinks he come to the hospital because he feels while he was having lunch which lasted only for a few seconds followed by vomiting. Denies blood but there is dark vomitus. However patient denies chest pain or dyspnea. No coughing. No abdominal pain. He didn't complaints about his bowel movement or urine CAT scan was done and it showed possibly a gastric outlet obstruction. Objective - Vital Signs Vital signs: Vital Signs Temp 98.9 F 05/26/21 09:57 Pulse 83 05/26/21 12:15 Resp 16 05/26/21 12:15 BP 176/92 05/26/21 12:15 Pulse Ox 98 05/26/21 12:15 Intake & Output 05/25/21 05/26/21 05/26/21 18:59 06:59 18:59 Intake Total 250 1400 Output Total 20 Balance 250 1380 Weight 63.503 kg Intake: IV 250 1400 Output: Estimated Blood Loss 20 Other: # Voids 3 2 - Exam -GENERAL: The patient is alert and oriented x2-3, not in any acute distress. Well developed, well nourished. HEENT: Pupils are round and equally reacting to light. EOMI. No scleral icterus. No conjunctival pallor. Normocephalic, atraumatic. No pharyngeal erythema. No thyromegaly. CARDIOVASCULAR: S1 and S2 present. No murmurs, rubs, or gallops. PULMONARY: Chest is clear to auscultation, no wheezing or crackles. -ABDOMEN: Soft, nontender, nondistended, normoactive bowel sounds. No palpable organomegaly. NG tube in a Place with dark colored aspirate MUSCULOSKELETAL: No joint swelling or deformity. EXTREMITIES: No cyanosis, clubbing, or pedal edema. NEUROLOGICAL: Gross neurological examination did not reveal any focal deficits. SKIN: No rashes. No petechiae - Labs CBC & Chem 7: 05/26/21 07:00 05/27/21 02:25 Labs: Abnormal Lab Results - Last 24 Hours (Table) 05/25/21 05/25/21 05/25/21 Range/Units 05:38 05:38 16:15 WBC (3.8-10.6) k/uL RBC (4.30-5.90) m/uL Hct (39.0-53.0) % Neutrophils # (1.3-7.7) k/uL Lymphocytes # (1.0-4.8) k/uL Potassium (3.5-5.1) mmol/L BUN (9-20) mg/dL Glucose (74-99) mg/dL POC Glucose (mg/dL) 171 H (75-99) mg/dL Hemoglobin A1c 8.7 H (4.0-6.0) % Procalcitonin 0.47 H (0.02-0.09) ng/mL 05/25/21 05/26/21 05/26/21 Range/Units 20:26 02:46 07:00 WBC 13.4 H (3.8-10.6) k/uL RBC 3.95 L (4.30-5.90) m/uL Hct 38.4 L (39.0-53.0) % Neutrophils # 12.1 H (1.3-7.7) k/uL Lymphocytes # 0.7 L (1.0-4.8) k/uL Potassium (3.5-5.1) mmol/L BUN (9-20) mg/dL Glucose (74-99) mg/dL POC Glucose (mg/dL) 161 H 149 H (75-99) mg/dL Hemoglobin A1c (4.0-6.0) % Procalcitonin (0.02-0.09) ng/mL 05/26/21 05/26/21 05/26/21 Range/Units 07:00 07:06 09:48 WBC (3.8-10.6) k/uL RBC (4.30-5.90) m/uL Hct (39.0-53.0) % Neutrophils # (1.3-7.7) k/uL Lymphocytes # (1.0-4.8) k/uL Potassium 3.1 L (3.5-5.1) mmol/L BUN 22 H (9-20) mg/dL Glucose 174 H (74-99) mg/dL POC Glucose (mg/dL) 159 H 183 H (75-99) mg/dL Hemoglobin A1c (4.0-6.0) % Procalcitonin (0.02-0.09) ng/mL 05/26/21 Range/Units 12:13 WBC (3.8-10.6) k/uL RBC (4.30-5.90) m/uL Hct (39.0-53.0) % Neutrophils # (1.3-7.7) k/uL Lymphocytes # (1.0-4.8) k/uL Potassium (3.5-5.1) mmol/L BUN (9-20) mg/dL Glucose (74-99) mg/dL POC Glucose (mg/dL) 172 H (75-99) mg/dL Hemoglobin A1c (4.0-6.0) % Procalcitonin (0.02-0.09) ng/mL Assessment and Plan Assessment: Vomiting with possible GI bleed Large hiatal hernia gastric outlet obstruction Aspiration pneumonia is suspected Possible syncope Diabetes mellitus History of GERD Hyperlipidemia Plan: This is a pleasant 84 years old male who presents with vomiting and gastric output obstruction is suspected, possible GI bleed and aspiration pneumonia Continue with NG tube Monitor hemoglobin and continue with IV Protonix Surgery team primary team on the case and following the patient closely. Continue with Zosyn and gentle hydration while monitoring respiratory status carefully Labs and medication were reviewed.. Continue same treatment. Continue with symptomatic treatment. Resume home medication. Monitor lytes and vitals. DVT and GI prophylaxis. Further recommendations depends on the clinical course of the patient DVT prophylaxis: No anticoagulation in view of possible GI bleed GI Prophylaxis: Ppi Prognosis is guarded
--- NOTE | 2021-05-28 09:02 | P.PN ---
Subjective Progress Note Date: 05/27/21 Principal diagnosis: Gastric outlet obstruction/large paraesophageal hernia; status post repair Aspiration pneumonia is suspected Possible syncope 85 years old male with past medical history of Diabetes Mellitus, GERD/Reflux, Hyperlipidemia. Also there is reports of history of Alzheimer dementia, difficulty walking, weakness. [facility] for possible GI bleed. Patient had dark emesis per reports. Patient kind of given limited history, also his hard hearing. But he answers appropriately. He is calm. As per report patient came from [facility] with several day history of intermittent nausea and vomiting. He does have some abdominal cramping in the upper area. He thinks he come to the hospital because he feels while he was having lunch which lasted only for a few seconds followed by vomiting. Denies blood but there is dark vomitus. However patient denies chest pain or dyspnea. No coughing. No abdominal pain. He didn't complaints about his bowel movement or urine CAT scan was done and it showed possibly a gastric outlet obstruction. 05/27/2021 Patient is seen and evaluated resting comfortably in bed; denies any complaints of abdominal pain; patient is status post laparoscopic repair of paraesophageal hernia Vital signs are reviewed and stable with a temperature of 97.5, pulse 67, respiration 18 and blood pressure 162/76 Laboratory review shows sodium 135, potassium 3.6, BUN 15 with creatinine of 0.66, blood glucoses ranging between 204 to 215 Patient has been placed on clear liquid diet and has been tolerating well so far We will plan to resume home medications if patient continues to tolerate oral intake Objective - Vital Signs Vital signs: Vital Signs Temp 97.5 F L 05/27/21 07:00 Pulse 67 05/27/21 07:00 Resp 18 05/27/21 07:00 BP 162/76 05/27/21 07:00 Pulse Ox 97 05/27/21 07:00 Intake & Output 05/26/21 05/27/21 05/27/21 18:59 06:59 18:59 Intake Total 1600 100 Output Total 620 1955 150 Balance 980 -1855 -150 Weight 63.503 kg Intake: IV 1600 Oral 100 Output: Urine 600 960 150 Straight 600 280 Post Void Residual 995 Estimated Blood Loss 20 Other: Voiding Method Urinal Diaper # Voids 1 4 # Bowel Movements 0 - Exam -GENERAL: The patient is alert and oriented x2-3, not in any acute distress. Well developed, well nourished. HEENT: Pupils are round and equally reacting to light. EOMI. No scleral icterus. No conjunctival pallor. Normocephalic, atraumatic. No pharyngeal erythema. No thyromegaly. CARDIOVASCULAR: S1 and S2 present. No murmurs, rubs, or gallops. PULMONARY: Chest is clear to auscultation, no wheezing or crackles. -ABDOMEN: Soft, nontender, nondistended, normoactive bowel sounds. No palpable organomegaly. NG tube in a Place with dark colored aspirate MUSCULOSKELETAL: No joint swelling or deformity. EXTREMITIES: No cyanosis, clubbing, or pedal edema. NEUROLOGICAL: Gross neurological examination did not reveal any focal deficits. SKIN: No rashes. No petechiae - Labs CBC & Chem 7: 05/26/21 07:00 05/27/21 02:25 Labs: Abnormal Lab Results - Last 24 Hours (Table) 05/26/21 05/26/21 05/26/21 Range/Units 12:13 17:08 20:28 Sodium (137-145) mmol/L Glucose (74-99) mg/dL POC Glucose (mg/dL) 172 H 154 H 160 H (75-99) mg/dL Calcium (8.4-10.2) mg/dL Total Protein (6.3-8.2) g/dL Albumin (3.5-5.0) g/dL 05/27/21 05/27/21 Range/Units 02:25 06:41 Sodium 135 L (137-145) mmol/L Glucose 204 H (74-99) mg/dL POC Glucose (mg/dL) 242 H (75-99) mg/dL Calcium 8.1 L (8.4-10.2) mg/dL Total Protein 5.2 L (6.3-8.2) g/dL Albumin 2.6 L (3.5-5.0) g/dL Assessment and Plan Assessment: Vomiting with possible GI bleed Large hiatal hernia gastric outlet obstruction Aspiration pneumonia is suspected Possible syncope Diabetes mellitus History of GERD Hyperlipidemia Plan: This is a pleasant 84 years old male who presents with vomiting and gastric output obstruction is suspected, possible GI bleed and aspiration pneumonia Continue with NG tube Monitor hemoglobin and continue with IV Protonix Surgery team primary team on the case and following the patient closely. Continue with Zosyn and gentle hydration while monitoring respiratory status carefully Labs and medication were reviewed.. Continue same treatment. Continue with symptomatic treatment. Resume home medication. Monitor lytes and vitals. DVT and GI prophylaxis. Further recommendations depends on the clinical course of the patient DVT prophylaxis: No anticoagulation in view of possible GI bleed GI Prophylaxis: Ppi Prognosis is guarded
[2021-05-28 11:02] LABS: Glucose,Whole Blood 192 mg/dL (75-99)
--- NOTE | 2021-05-28 12:01 | P.PN ---
Progress Note - Text Progress Note Date: 05/28/21 Patient feels better. He had his Jessica performed yesterday shows no evidence of leak or obstruction. On exam vital signs are stable. Abdomen soft. Status post repair. Social hernia. Patient will start on full liquid diet
[2021-05-28 16:38] LABS: Glucose,Whole Blood 105 mg/dL (75-99)
[2021-05-28 20:32] LABS: Glucose,Whole Blood 169 mg/dL (75-99)
--- NOTE | 2021-05-28 20:48 | P.PN ---
Subjective Progress Note Date: 05/28/21 Principal diagnosis: Gastric outlet obstruction/large paraesophageal hernia; status post repair Aspiration pneumonia is suspected Possible syncope 85 years old male with past medical history of Diabetes Mellitus, GERD/Reflux, Hyperlipidemia. Also there is reports of history of Alzheimer dementia, difficulty walking, weakness. He was sent from [facility] to [facility] for possible GI bleed. Patient had dark emesis per reports. Patient kind of given limited history, also his hard hearing. But he answers appropriately. He is calm. As per report patient came from [facility] with several day history of intermittent nausea and vomiting. He does have some abdominal cramping in the upper area. He thinks he come to the hospital because he feels while he was having lunch which lasted only for a few seconds followed by vomiting. Denies blood but there is dark vomitus. However patient denies chest pain or dyspnea. No coughing. No abdominal pain. He didn't complaints about his bowel movement or urine CAT scan was done and it showed possibly a gastric outlet obstruction. 05/27/2021 Patient is seen and evaluated resting comfortably in bed; denies any complaints of abdominal pain; patient is status post laparoscopic repair of paraesophageal hernia Vital signs are reviewed and stable with a temperature of 97.5, pulse 67, respiration 18 and blood pressure 162/76 Laboratory review shows sodium 135, potassium 3.6, BUN 15 with creatinine of 0.66, blood glucoses ranging between 204 to 215 Patient has been placed on clear liquid diet and has been tolerating well so far We will plan to resume home medications if patient continues to tolerate oral intake 05/28/2021 Patient is seen and evaluated at bedside; denies any specific complaints; reports diet has been advanced to full liquid and he has been able to tolerate so far Vital signs remained stable; patient underwent fluoroscopy yesterday which did not reveal any leak or obstruction We will continue with current management; patient is recommended increased activity Objective - Vital Signs Vital signs: Vital Signs Temp 98.2 F 05/28/21 07:57 Pulse 61 05/28/21 07:57 Resp 18 05/28/21 07:57 BP 129/73 05/28/21 07:57 Pulse Ox 95 05/28/21 07:57 Intake & Output 05/27/21 05/28/21 05/28/21 18:59 06:59 18:59 Output Total 300 928 350 Balance -300 -928 -350 Output: Urine 300 650 350 Post Void Residual 278 Other: Voiding Method Urinal Urinal Urinal Diaper Diaper Diaper # Voids 4 2 1 # Bowel Movements 0 0 - Exam -GENERAL: The patient is alert and oriented x2-3, not in any acute distress. Well developed, well nourished. HEENT: Pupils are round and equally reacting to light. EOMI. No scleral icterus. No conjunctival pallor. Normocephalic, atraumatic. No pharyngeal erythema. No thyromegaly. CARDIOVASCULAR: S1 and S2 present. No murmurs, rubs, or gallops. PULMONARY: Chest is clear to auscultation, no wheezing or crackles. -ABDOMEN: Soft, nontender, nondistended, normoactive bowel sounds. No palpable organomegaly. NG tube in a Place with dark colored aspirate MUSCULOSKELETAL: No joint swelling or deformity. EXTREMITIES: No cyanosis, clubbing, or pedal edema. NEUROLOGICAL: Gross neurological examination did not reveal any focal deficits. SKIN: No rashes. No petechiae - Labs CBC & Chem 7: 05/26/21 07:00 05/27/21 02:25 Labs: Abnormal Lab Results - Last 24 Hours (Table) 05/27/21 05/27/21 05/28/21 Range/Units 16:39 21:01 06:47 POC Glucose (mg/dL) 120 H 215 H 193 H (75-99) mg/dL 05/28/21 Range/Units 11:01 POC Glucose (mg/dL) 192 H (75-99) mg/dL Assessment and Plan Assessment: Vomiting with possible GI bleed Large hiatal hernia gastric outlet obstruction Aspiration pneumonia is suspected Possible syncope Diabetes mellitus History of GERD Hyperlipidemia Plan: This is a pleasant 84 years old male who presents with vomiting and gastric output obstruction is suspected, possible GI bleed and aspiration pneumonia Continue with NG tube Monitor hemoglobin and continue with IV Protonix Surgery team primary team on the case and following the patient closely. Continue with Zosyn and gentle hydration while monitoring respiratory status carefully Labs and medication were reviewed.. Continue same treatment. Continue with symptomatic treatment. Resume home medication. Monitor lytes and vitals. DVT and GI prophylaxis. Further recommendations depends on the clinical course of the patient DVT prophylaxis: No anticoagulation in view of possible GI bleed GI Prophylaxis: Ppi Prognosis is guarded
[2021-05-28] MEDS: LIDOCAINE 5% PATCH TOPICAL SCH (20:56)
[2021-05-29] MEDS: ONDANSETRON 4 MG/2 ML VIAL IVP PRN (00:12)
[2021-05-29] MEDS: PIPERACILLIN-TAZOBACTAM 3.375 GM in SODIUM CHLORIDE 0.9% 100 ML IVPB SCH ×4 (00:12→23:34)
[2021-05-29] MEDS: MORPHINE SULFATE 4 MG/ML SYRINGE IVP PRN (03:10)
[2021-05-29] MEDS: D5-0.45% NACL WITH KCL 20MEQ/L 1,000 ML IV SCH ×3 (05:55→21:12)
[2021-05-29 07:31] LABS: Glucose,Whole Blood 197 mg/dL (75-99)
[2021-05-29] MEDS: PANTOPRAZOLE 40 MG/10 ML VIAL IVP SCH (08:10)
[2021-05-29] MEDS: INSULIN ASPART (NovoLOG) 100 UNIT/ML VIAL SQ SCH ×4 (08:11→21:02)
[2021-05-29] MEDS: ENOXAPARIN 40 MG/0.4 ML SYRINGE SQ SCH (08:11)
[2021-05-29] MEDS: TAMSULOSIN 0.4 MG CAP.ER.24H PO SCH (08:11)
[2021-05-29 09:07] LABS: Basophils # (A) 0.01 X 10*3/uL (0.00-0.10); Basophils % (A) 0.1 %; Eosinophils # (A) 0.31 X 10*3/uL (0.04-0.35); Eosinophils % (A) 3.8 %; HGB 10.7 g/dL (13.0-17.0); Lymphocytes # (A) 1.02 X 10*3/uL (0.90-5.00); Lymphocytes % (A) 12.3 %; MCH 31.2 pg (27.0-32.0); MCHC 32.4 g/dL (32.0-37.0); MCV 96.2 fL (80.0-97.0); Mean Platelet Volume 10.1 fL (9.5-12.2); Monocytes # (A) 0.74 X 10*3/uL (0.20-1.00); Neutrophils # (A) 6.13 X 10*3/uL (1.80-7.70); Neutrophils % (A) 74.2 %; Platelet Count 175 X 10*3/uL (140-440); RBC 3.43 X 10*6/uL (4.40-5.60); RDW 12.2 % (11.5-14.5); WBC 8.26 X 10*3/uL (4.50-10.00)
[2021-05-29 09:56] LABS: African American GFR (CKD) 95.7 (60.0-200.0); Anion Gap 3.9 mmol/L (4.00-12.00); BUN/Creat Ratio 7.5 Ratio (12.00-20.00); Calcium 7.8 mg/dL (8.7-10.3); Carbon Dioxide 29.1 mmol/L (21.6-31.8); Non-African American GFR(CKD) 82.6 (60.0-200.0)
[2021-05-29] MEDS: SODIUM CHLORIDE 0.9% 1,000 ML IV SCH ×2 (11:41→23:23)
[2021-05-29 11:42] LABS: Glucose,Whole Blood 154 mg/dL (75-99)
--- NOTE | 2021-05-29 14:14 | P.PN ---
Subjective Progress Note Date: 05/29/21 Progress Note Date: 05/28/21 Principal diagnosis: Gastric outlet obstruction/large paraesophageal hernia; status post repair Aspiration pneumonia is suspected Possible syncope 85 years old male with past medical history of Diabetes Mellitus, GERD/Reflux, Hyperlipidemia. Also there is reports of history of Alzheimer dementia, difficulty walking, weakness. [facility] for possible GI bleed. Patient had dark emesis per reports. Patient kind of given limited history, also his hard hearing. But he answers appropriately. He is calm. As per report [facility] day history of intermittent nausea and vomiting. He does have some abdominal cramping in the upper area. He thinks he come to the hospital because he feels while he was having lunch which lasted only for a few seconds followed by vomiting. Denies blood but there is dark vomitus. However patient denies chest pain or dyspnea. No coughing. No abdominal pain. He didn't complaints about his bowel movement or urine CAT scan was done and it showed possibly a gastric outlet obstruction. 05/27/2021 Patient is seen and evaluated resting comfortably in bed; denies any complaints of abdominal pain; patient is status post laparoscopic repair of paraesophageal hernia Vital signs are reviewed and stable with a temperature of 97.5, pulse 67, respiration 18 and blood pressure 162/76 Laboratory review shows sodium 135, potassium 3.6, BUN 15 with creatinine of 0. 66, blood glucoses ranging between 204 to 215 Patient has been placed on clear liquid diet and has been tolerating well so far We will plan to resume home medications if patient continues to tolerate oral intake 05/28/2021 Patient is seen and evaluated at bedside; denies any specific complaints; reports diet has been advanced to full liquid and he has been able to tolerate so far Vital signs remained stable; patient underwent fluoroscopy yesterday which did not reveal any leak or obstruction We will continue with current management; patient is recommended increased ac tivity 05/29/2021 Patient is evaluated at the bedside he is sitting up in the chair. Patient denies any chest pain, cough, shortness of breath, palpitations. Patient states that he is still on a clear liquid diet, he denies any nausea or vomiting or diarrhea. Patient is passing gas, he denies any bowel movement this time. Patient is postop day 3 from a laparoscopic hernia repair with mesh. He is ambulating, using his incentive spirometer. Patient is okay for discharge from a medical standpoint, will need a repeat CBC in 2 days to monitor hemoglobin. And a BMP for sodium. Vital signs are stable, temperature 96.9, heart rate 70, blood pressure 114/68, 96% on room air. ROS Constitutional: Denied any fatigue denied any fever. Cardio vascular: denied any chest pain, palpitations Gastrointestinal denied any nausea vomiting Pulmonary: Denied any shortness of breath cough Neurologic denied any new focal deficits All inpatient medications were reviewed and appropriate changes in these medications as dictated in the interval history and assessment and plan. PHYSICAL EXAMINATION: GENERAL: The patient is alert and oriented x3, not in any acute distress. Well developed, well nourished. HEENT: Pupils are round and equally reacting to light. EOMI. No scleral icterus. No conjunctival pallor. Normocephalic, atraumatic. No pharyngeal erythema. No thyromegaly. CARDIOVASCULAR: S1 and S2 present. No murmurs, rubs, or gallops. PULMONARY: Chest is clear to auscultation, no wheezing or crackles. ABDOMEN: Soft, nontender, nondistended, normoactive bowel sounds. No palpable organomegaly. MUSCULOSKELETAL: No joint swelling or deformity. EXTREMITIES: No cyanosis, clubbing, or pedal edema. NEUROLOGICAL: Gross neurological examination did not reveal any focal deficits. SKIN: No rashes. Assessment and plan Assessment: Vomiting with possible GI bleed Large hiatal hernia gastric outlet obstruction Aspiration pneumonia is suspected Possible syncope Diabetes mellitus History of GERD Hyperlipidemia Plan: This is a pleasant 84 years old male who presents with vomiting and gastric output obstruction is suspected, possible GI bleed and aspiration pneumonia NG tube has been discontinued, patient is tolerating a full liquid diet Monitor hemoglobin and continue with IV Protonix Surgery team primary team on the case and following the patient closely. Postop day #3 laparoscopic hernia repair with mesh Continue with Zosyn and gentle hydration while monitoring respiratory status carefully Labs and medication were reviewed.. Continue same treatment. Continue with symptomatic treatment. Resume home medication. Monitor lytes and vitals. DVT and GI prophylaxis. Further recommendations depends on the clinical course of the patient DVT prophylaxis: No anticoagulation in view of possible GI bleed GI Prophylaxis: PPI Prognosis is guarded Patient is medically cleared for discharge, thank for this consultation. Patient will need a CBC and BMP on discharge. Objective - Vital Signs Vital signs: Vital Signs Temp 96.9 F L 05/29/21 08:00 Pulse 70 05/29/21 08:00 Resp 15 05/29/21 08:00 BP 114/68 05/29/21 08:00 Pulse Ox 96 05/29/21 08:00 Intake & Output 05/28/21 05/29/21 05/29/21 18:59 06:59 18:59 Output Total 1200 150 Balance -1200 -150 Output: Urine 1200 150 Other: Voiding Method Urinal Urinal Diaper Diaper # Voids 1 4 # Bowel Movements 0 - Labs CBC & Chem 7: 05/29/21 06:55 05/29/21 06:55 Labs: Abnormal Lab Results - Last 24 Hours (Table) 05/28/21 05/28/21 05/29/21 Range/Units 16:36 20:30 06:55 RBC 3.43 L (4.40-5.60) X 10*6/uL Hgb 10.7 L (13.0-17.0) g/dL Hct 33.0 L (39.6-50.0) % Immature Gran # 0.05 H (0.00-0.04) X 10*3/uL Sodium (135-145) mmol/L Anion Gap (4.00-12.00) mmol/L BUN (9.0-27.0) mg/dL BUN/Creatinine Ratio (12.00-20.00) Ratio Glucose (70-110) mg/dL POC Glucose (mg/dL) 105 H 169 H (75-99) mg/dL Calcium (8.7-10.3) mg/dL 05/29/21 05/29/21 05/29/21 Range/Units 06:55 07:23 11:33 RBC (4.40-5.60) X 10*6/uL Hgb (13.0-17.0) g/dL Hct (39.6-50.0) % Immature Gran # (0.00-0.04) X 10*3/uL Sodium 132 L (135-145) mmol/L Anion Gap 3.90 L (4.00-12.00) mmol/L BUN 6.0 L (9.0-27.0) mg/dL BUN/Creatinine Ratio 7.50 L (12.00-20.00) Ratio Glucose 206 H (70-110) mg/dL POC Glucose (mg/dL) 197 H 154 H (75-99) mg/dL Calcium 7.8 L (8.7-10.3) mg/dL
[2021-05-29] MEDS ORDERED: HYDROcodone/APAP 5-325MG 1 EACH TAB PO PRN (14:49)
--- NOTE | 2021-05-29 14:50 | P.PN ---
Subjective Progress Note Date: 05/29/21 CHIEF COMPLAINT: Gastric outlet obstruction HISTORY OF PRESENT ILLNESS: Patient is status post laparoscopic repair of paraesophageal hernia with bile mesh. He is postop day #3. Patient denies any abdominal pain. Denies any nausea or vomiting. Nursing staff notified me this afternoon the patient is now having a significant amount of diarrhea. He's had multiple episodes of large amount of stool watery stool. He is having flatus. He also denies any difficulty swallowing. Denies any nausea or vomiting. Having for liquid diet. Afebrile. WBC is 8.26 hemoglobin is 10.7 PHYSICAL EXAM: VITAL SIGNS: Reviewed. GENERAL: Well-developed in no acute distress. HEENT: No sclera icterus. Extraocular movements grossly intact. Moist buccal mucosa. Head is atraumatic, normocephalic. ABDOMEN: Soft. Nondistended. Nontender. NEUROLOGIC: Alert and oriented. Cranial nerves II through XII grossly intact. ASSESSMENT: 1. Gastric outlet obstruction, paraesophageal hernia, mesoaxial volvulus status post laparoscopic repair of paraesophageal hernia with bile mesh PLAN: -Check stool for C. diff due to significant amount of diarrhea -Continue full liquid diet -Add [place] as needed for pain. Try to wean patient off of IV pain medications -Continue GI and DVT prophylaxis -If stool for C. diff is negative, anticipate discharge tomorrow Physician Ed Educational Aide note has been reviewed by physician. Signing provider agrees with the documented findings, assessment, and plan of care. Objective - Vital Signs Vital signs: Vital Signs Temp 96.9 F L 05/29/21 08:00 Pulse 70 05/29/21 08:00 Resp 15 05/29/21 08:00 BP 114/68 05/29/21 08:00 Pulse Ox 96 05/29/21 08:00 Intake & Output 05/28/21 05/29/21 05/29/21 18:59 06:59 18:59 Output Total 1200 150 Balance -1200 -150 Output: Urine 1200 150 Other: Voiding Method Urinal Urinal Diaper Diaper # Voids 1 4 # Bowel Movements 0 - Labs CBC & Chem 7: 05/29/21 06:55 05/29/21 06:55 Labs: Abnormal Lab Results - Last 24 Hours (Table) 05/28/21 05/28/21 05/29/21 Range/Units 16:36 20:30 06:55 RBC 3.43 L (4.40-5.60) X 10*6/uL Hgb 10.7 L (13.0-17.0) g/dL Hct 33.0 L (39.6-50.0) % Immature Gran # 0.05 H (0.00-0.04) X 10*3/uL Sodium (135-145) mmol/L Anion Gap (4.00-12.00) mmol/L BUN (9.0-27.0) mg/dL BUN/Creatinine Ratio (12.00-20.00) Ratio Glucose (70-110) mg/dL POC Glucose (mg/dL) 105 H 169 H (75-99) mg/dL Calcium (8.7-10.3) mg/dL 05/29/21 05/29/21 05/29/21 Range/Units 06:55 07:23 11:33 RBC (4.40-5.60) X 10*6/uL Hgb (13.0-17.0) g/dL Hct (39.6-50.0) % Immature Gran # (0.00-0.04) X 10*3/uL Sodium 132 L (135-145) mmol/L Anion Gap 3.90 L (4.00-12.00) mmol/L BUN 6.0 L (9.0-27.0) mg/dL BUN/Creatinine Ratio 7.50 L (12.00-20.00) Ratio Glucose 206 H (70-110) mg/dL POC Glucose (mg/dL) 197 H 154 H (75-99) mg/dL Calcium 7.8 L (8.7-10.3) mg/dL
[2021-05-29 17:33] LABS: Glucose,Whole Blood 210 mg/dL (75-99)
[2021-05-29 20:44] LABS: Glucose,Whole Blood 145 mg/dL (75-99)
[2021-05-29] MEDS: LIDOCAINE 5% PATCH TOPICAL SCH (21:01)
[2021-05-30] MEDS: D5-0.45% NACL WITH KCL 20MEQ/L 1,000 ML IV SCH ×2 (05:33→11:58)
[2021-05-30 07:17] LABS: Glucose,Whole Blood 178 mg/dL (75-99)
[2021-05-30] MEDS: TAMSULOSIN 0.4 MG CAP.ER.24H PO SCH (08:27)
[2021-05-30] MEDS: ENOXAPARIN 40 MG/0.4 ML SYRINGE SQ SCH (08:27)
[2021-05-30] MEDS: PANTOPRAZOLE 40 MG/10 ML VIAL IVP SCH (08:27)
[2021-05-30] MEDS: INSULIN ASPART (NovoLOG) 100 UNIT/ML VIAL SQ SCH ×4 (08:27→21:07)
[2021-05-30] MEDS: PIPERACILLIN-TAZOBACTAM 3.375 GM in SODIUM CHLORIDE 0.9% 100 ML IVPB SCH ×3 (08:38→23:42)
[2021-05-30 10:20] LABS: Basophils % (A) 0 %; Eosinophils # (A) 0.3 k/uL (0-0.7); Eosinophils % (A) 4 %; HCT 32.8 % (39.0-53.0); HGB 10.9 gm/dL (13.0-17.5); Lymphocytes # (A) 0.8 k/uL (1.0-4.8); Lymphocytes % (A) 10 %; MCH 32.9 pg (25.0-35.0); MCHC 33.3 g/dL (31.0-37.0); MCV 98.9 fL (80.0-100.0); Mean Platelet Volume 7.4; Monocytes # (A) 0.6 k/uL (0-1.0); Monocytes % (A) 7 %; Neutrophils # (A) 5.9 k/uL (1.3-7.7); Neutrophils % (A) 77 %; Platelet Count 201 k/uL (150-450); RBC 3.32 m/uL (4.30-5.90); RDW 12.2 % (11.5-15.5); WBC 7.7 k/uL (3.8-10.6)
[2021-05-30 10:36] LABS: African American GFR (CKD) >90 (>60 ml/min/1.73 sqM); Anion Gap 5 mmol/L; Blood Urea Nitrogen 4 mg/dL (9-20); Calcium 8.1 mg/dL (8.4-10.2); Carbon Dioxide 27 mmol/L (22-30); Chloride 97 mmol/L (98-107); Glucose 160 mg/dL (74-99); Magnesium 1.8 mg/dL (1.6-2.3); Non-African American GFR(CKD) 85 (>60 ml/min/1.73 sqM); Potassium 3.9 mmol/L (3.5-5.1); Sodium 129 mmol/L (137-145)
[2021-05-30] MEDS: SODIUM CHLORIDE 0.9% 1,000 ML IV SCH (10:52)
[2021-05-30 11:00] LABS: Basophils % (A) 1 %; Eosinophils # (A) 0.3 k/uL (0-0.7); Eosinophils % (A) 4 %; Lymphocytes # (A) 0.9 k/uL (1.0-4.8); Lymphocytes % (A) 11 %; MCHC 32.5 g/dL (31.0-37.0); MCV 98.6 fL (80.0-100.0); Mean Platelet Volume 8.4; Monocytes # (A) 0.6 k/uL (0-1.0); Monocytes % (A) 7 %; Neutrophils # (A) 5.9 k/uL (1.3-7.7); Neutrophils % (A) 75 %; Platelet Count 204 k/uL (150-450); RBC 3.44 m/uL (4.30-5.90); RDW 12.1 % (11.5-15.5); WBC 7.9 k/uL (3.8-10.6)
[2021-05-30 11:27] LABS: African American GFR (CKD) >90 (>60 ml/min/1.73 sqM); Anion Gap 5 mmol/L; Blood Urea Nitrogen 4 mg/dL (9-20); Carbon Dioxide 29 mmol/L (22-30); Chloride 95 mmol/L (98-107); Glucose 112 mg/dL (74-99); Magnesium 1.8 mg/dL (1.6-2.3); Non-African American GFR(CKD) 88 (>60 ml/min/1.73 sqM); Potassium 3.6 mmol/L (3.5-5.1); Sodium 129 mmol/L (137-145)
[2021-05-30 11:38] LABS: Glucose,Whole Blood 115 mg/dL (75-99)
--- NOTE | 2021-05-30 11:39 | CT ---
EXAMINATION TYPE: CT brain wo con DATE OF EXAM: 05/30/2021 COMPARISON: 05/02/2021 HISTORY: Pain post fall CT DLP: 1159.4 mGycm Automated exposure control for dose reduction was used. FINDINGS: There is no acute intracranial hemorrhage, midline shift, or mass effect identified. Brain parenchyma demonstrates generalized volume loss. Patchy white matter hypodensities likely sequela of chronic mi crovascular ischemic change. Moderate generalized degenerative change. Calcifications in the basal ganglia.. No extra-axial fluid collection. Bones and extracranial soft tissues are intact. The globes are grossly symmetric. Visuali zed sinuses and mastoid air cells are clear. Partially empty sella turcica. IMPRESSION: 1. DEGENERATIVE AND NONSPECIFIC WHITE MATTER CHANGE WITH NO EVIDENCE OF ACUTE HEMORRHAGE OR MASS EFFE CT.
[2021-05-30] MEDS ORDERED: Magnesium Replacement Protocol 1 EACH MISC MISCELLANE PRN (13:40)
--- NOTE | 2021-05-30 13:53 | P.PN ---
Subjective Progress Note Date: 05/30/21 Progress Note Date: 05/28/21 Principal diagnosis: Gastric outlet obstruction/large paraesophageal hernia; status post repair Aspiration pneumonia is suspected Possible syncope 85 years old male with past medical history of Diabetes Mellitus, GERD/Reflux, Hyperlipidemia. Also there is reports of history of Alzheimer dementia, difficulty walking, weakness. He was sent [facility] for possible GI bleed. Patient had dark emesis per reports. Patient kind of given limited history, also his hard hearing. But he answers appropriately. He is calm. As per report patient came from [facility] with several day history of intermittent nausea and vomiting. He does have some abdominal cramping in the upper area. He thinks he come to the hospital because he feels while he was having lunch which lasted only for a few seconds followed by vomiting. Denies blood but there is dark vomitus. However patient denies chest pain or dyspnea. No coughing. No abdominal pain. He didn't complaints about his bowel movement or urine CAT scan was done and it showed possibly a gastric outlet obstruction. 05/27/2021 Patient is seen and evaluated resting comfortably in bed; denies any complaints of abdominal pain; patient is status post laparoscopic repair of paraesophageal hernia Vital signs are reviewed and stable with a temperature of 97.5, pulse 67, respiration 18 and blood pressure 162/76 Laboratory review shows sodium 135, potassium 3.6, BUN 15 with creatinine of 0. 66, blood glucoses ranging between 204 to 215 Patient has been placed on clear liquid diet and has been tolerating well so far We will plan to resume home medications if patient continues to tolerate oral intake 05/28/2021 Patient is seen and evaluated at bedside; denies any specific complaints; reports diet has been advanced to full liquid and he has been able to tolerate so far Vital signs remained stable; patient underwent fluoroscopy yesterday which did not reveal any leak or obstruction We will continue with current management; patient is recommended increased ac tivity 05/29/2021 Patient is evaluated at the bedside he is sitting up in the chair. Patient denies any chest pain, cough, shortness of breath, palpitations. Patient states that he is still on a clear liquid diet, he denies any nausea or vomiting or diarrhea. Patient is passing gas, he denies any bowel movement this time. Patient is postop day 3 from a laparoscopic hernia repair with mesh. He is ambulating, using his incentive spirometer. Patient is okay for discharge from a medical standpoint, will need a repeat CBC in 2 days to monitor hemoglobin. And a BMP for sodium. Vital signs are stable, temperature 96.9, heart rate 70, blood pressure 114/68, 96% on room air. 05/30/2021 Patient is evaluated today resting in the bed. Per patient he did have a fall this morning around 6 AM. He states that he was sitting up in the chair and had used the bathroom and when he came so he decided to walk himself to the bathroom. He states that he felt weak and fell, he landed on his back and states that he did hit the back of his head on the floor. A brain CT without contrast was ordered and it was negative for an acute intracranial hemorrhage or mass effect. Patient is alert and oriented, negative for focal neural deficits. Because of this primary would like to keep patient for one more night. Plan is for return to when tomorrow. Sodium today is 129, D5 4 5 with potassium has been discontinued please continue patient on normal saline overnight and repeat in the morning. Mag 1.8 replaced per protocol potassium 3.6 replaced per protocol. Hemoglobin remained stable. C. diff is negative, patient denies any further episodes of diarrhea. Patient denies any chest pain, palpitations, cough, shortness of breath. Vital signs remained stable. BP 168/83. ROS Constitutional: Denied any fatigue denied any fever. Cardio vascular: denied any chest pain, palpitations Gastrointestinal denied any nausea vomiting Pulmonary: Denied any shortness of breath cough Neurologic denied any new focal deficits All inpatient medications were reviewed and appropriate changes in these medications as dictated in the interval history and assessment and plan. PHYSICAL EXAMINATION: GENERAL: The patient is alert and oriented x3, not in any acute distress. Well developed, well nourished. HEENT: Pupils are round and equally reacting to light. EOMI. No scleral icterus. No conjunctival pallor. Normocephalic, atraumatic. No pharyngeal erythema. No thyromegaly. CARDIOVASCULAR: S1 and S2 present. No murmurs, rubs, or gallops. PULMONARY: Chest is clear to auscultation, no wheezing or crackles. ABDOMEN: Soft, nontender, nondistended, normoactive bowel sounds. No palpable organomegaly. MUSCULOSKELETAL: No joint swelling or deformity. EXTREMITIES: No cyanosis, clubbing, or pedal edema. NEUROLOGICAL: Gross neurological examination did not reveal any focal deficits. SKIN: No rashes. Assessment and plan Assessment: Possible GI bleed Large hiatal hernia postoperative day #4 laparoscopic hernia repair with mesh gastric outlet obstruction Aspiration pneumonia is suspected Possible syncope Diabetes mellitus History of GERD Hyperlipidemia Plan: This is a pleasant 84 years old male who presents with vomiting and gastric output obstruction is suspected, possible GI bleed and aspiration pneumonia NG tube has been discontinued, patient is tolerating a full liquid diet Monitor hemoglobin and continue with IV Protonix, stable today at 11 Surgery team primary team on the case and following the patient closely. Postop day #3 laparoscopic hernia repair with mesh Hyponatremia, possibly hypervolemic, continue with 0.9 normal saline at 75 repeat in the morning. Hypomagnesemia, hypo kalemia, replace per protocol secondary to diarrhea which is improved DVT prophylaxis: No anticoagulation in view of possible GI bleed hemoglobin 11 GI Prophylaxis: PPI Prognosis is guarded Patient had a follows morning where he states that he did hit his head, brain CT was negative for intracranial hemorrhage. Patient will need a CBC and BMP on discharge. Plan is for patient to return to [facility] tomorrow, repeat sodium in the morning. We are continuing to follow along for medical consult. Objective - Vital Signs Vital signs: Vital Signs Temp 98.1 F 05/30/21 07:59 Pulse 67 05/30/21 07:59 Resp 18 05/30/21 07:59 BP 168/83 05/30/21 07:59 Pulse Ox 97 05/30/21 07:59 Intake & Output 05/29/21 05/30/21 05/30/21 18:59 06:59 18:59 Output Total 800 Balance -800 Output: Urine 800 Other: Voiding Method Urinal Diaper # Voids 13 # Bowel Movements 4 1 - Labs CBC & Chem 7: 05/30/21 10:49 05/30/21 10:49 Labs: Abnormal Lab Results - Last 24 Hours (Table) 05/29/21 05/29/21 05/30/21 Range/Units 17:09 20:42 07:16 RBC (4.30-5.90) m/uL Hgb (13.0-17.5) gm/dL Hct (39.0-53.0) % Lymphocytes # (1.0-4.8) k/uL Sodium (137-145) mmol/L Chloride (98-107) mmol/L BUN (9-20) mg/dL Glucose (74-99) mg/dL POC Glucose (mg/dL) 210 H 145 H 178 H (75-99) mg/dL Calcium (8.4-10.2) mg/dL 05/30/21 05/30/21 05/30/21 Range/Units 10:00 10:00 10:49 RBC 3.32 L 3.44 L (4.30-5.90) m/uL Hgb 10.9 L 11.0 L (13.0-17.5) gm/dL Hct 32.8 L 34.0 L (39.0-53.0) % Lymphocytes # 0.8 L 0.9 L (1.0-4.8) k/uL Sodium 129 L (137-145) mmol/L Chloride 97 L (98-107) mmol/L BUN 4 L (9-20) mg/dL Glucose 160 H (74-99) mg/dL POC Glucose (mg/dL) (75-99) mg/dL Calcium 8.1 L (8.4-10.2) mg/dL 05/30/21 05/30/21 Range/Units 10:49 11:37 RBC (4.30-5.90) m/uL Hgb (13.0-17.5) gm/dL Hct (39.0-53.0) % Lymphocytes # (1.0-4.8) k/uL Sodium 129 L (137-145) mmol/L Chloride 95 L (98-107) mmol/L BUN 4 L (9-20) mg/dL Glucose 112 H (74-99) mg/dL POC Glucose (mg/dL) 115 H (75-99) mg/dL Calcium 8.0 L (8.4-10.2) mg/dL
[2021-05-30] MEDS ORDERED: POTASSIUM CHLORIDE ER 20 MEQ TAB.ER PO SCH (14:00)
--- NOTE | 2021-05-30 14:41 | P.PN ---
Subjective Progress Note Date: 05/30/21 CHIEF COMPLAINT: Gastric outlet obstruction HISTORY OF PRESENT ILLNESS: Patient is status post laparoscopic repair of paraesophageal hernia with bile mesh. He is postop day #4. Patient denies any abdominal pain. Denies any nausea or vomiting. Patient's diarrhea has improved. Stool for C. diff is negative. Patient did have a fall this morning. There are concerns that he possibly hit his head computed tomography scan of the head was ordered and it was negative. Afebrile. WBC 7.9 hemoglobin 11 s odium 129 potassium 3.6 magnesium 1.8 PHYSICAL EXAM: VITAL SIGNS: Reviewed. GENERAL: Well-developed in no acute distress. HEENT: No sclera icterus. Extraocular movements grossly intact. Moist buccal mucosa. Head is atraumatic, normocephalic. ABDOMEN: Soft. Nondistended. Nontender. NEUROLOGIC: Alert and oriented. Cranial nerves II through XII grossly intact. ASSESSMENT: 1. Gastric outlet obstruction, paraesophageal hernia, mesoaxial volvulus status post laparoscopic repair of paraesophageal hernia with bile mesh PLAN: -Continue full liquid diet -Continue pain medication as needed -Continue GI and DVT prophylaxis -Possible discharge tomorrow if cleared by medicine service Physician Assistant Portfolio Manager note has been reviewed by physician. Signing provider agrees with the documented findings, assessment, and plan of care. Objective - Vital Signs Vital signs: Vital Signs Temp 98.5 F 05/30/21 14:05 Pulse 69 05/30/21 14:05 Resp 16 05/30/21 14:05 BP 108/67 05/30/21 14:05 Pulse Ox 95 05/30/21 14:05 Intake & Output 05/29/21 05/30/21 05/30/21 18:59 06:59 18:59 Output Total 800 Balance -800 Output: Urine 800 Other: Voiding Method Urinal Diaper # Voids 13 # Bowel Movements 4 1 - Labs CBC & Chem 7: 05/30/21 10:49 05/30/21 10:49 Labs: Abnormal Lab Results - Last 24 Hours (Table) 05/29/21 05/29/21 05/30/21 Range/Units 17:09 20:42 07:16 RBC (4.30-5.90) m/uL Hgb (13.0-17.5) gm/dL Hct (39.0-53.0) % Lymphocytes # (1.0-4.8) k/uL Sodium (137-145) mmol/L Chloride (98-107) mmol/L BUN (9-20) mg/dL Glucose (74-99) mg/dL POC Glucose (mg/dL) 210 H 145 H 178 H (75-99) mg/dL Calcium (8.4-10.2) mg/dL 05/30/21 05/30/21 05/30/21 Range/Units 10:00 10:00 10:49 RBC 3.32 L 3.44 L (4.30-5.90) m/uL Hgb 10.9 L 11.0 L (13.0-17.5) gm/dL Hct 32.8 L 34.0 L (39.0-53.0) % Lymphocytes # 0.8 L 0.9 L (1.0-4.8) k/uL Sodium 129 L (137-145) mmol/L Chloride 97 L (98-107) mmol/L BUN 4 L (9-20) mg/dL Glucose 160 H (74-99) mg/dL POC Glucose (mg/dL) (75-99) mg/dL Calcium 8.1 L (8.4-10.2) mg/dL 05/30/21 05/30/21 Range/Units 10:49 11:37 RBC (4.30-5.90) m/uL Hgb (13.0-17.5) gm/dL Hct (39.0-53.0) % Lymphocytes # (1.0-4.8) k/uL Sodium 129 L (137-145) mmol/L Chloride 95 L (98-107) mmol/L BUN 4 L (9-20) mg/dL Glucose 112 H (74-99) mg/dL POC Glucose (mg/dL) 115 H (75-99) mg/dL Calcium 8.0 L (8.4-10.2) mg/dL
[2021-05-30] MEDS: MAGNESIUM SULFATE-D5W PMX 1 GM in DEXTROSE/WATER 1 100ML.BAG IVPB SCH ×2 (14:51→16:12)
[2021-05-30 16:29] LABS: Glucose,Whole Blood 210 mg/dL (75-99)
[2021-05-30 20:57] LABS: Glucose,Whole Blood 129 mg/dL (75-99)
[2021-05-30] MEDS ORDERED: ATORVASTATIN 10 MG TAB PO SCH (21:00)
[2021-05-30] MEDS: LIDOCAINE 5% PATCH TOPICAL SCH (21:30)
[2021-05-31] MEDS: SODIUM CHLORIDE 0.9% 1,000 ML IV SCH ×2 (02:07→15:06)
[2021-05-31 07:03] LABS: Glucose,Whole Blood 148 mg/dL (75-99)
[2021-05-31 07:23] VITALS: RESP 18
[2021-05-31] MEDS: PIPERACILLIN-TAZOBACTAM 3.375 GM in SODIUM CHLORIDE 0.9% 100 ML IVPB SCH ×2 (07:42→15:08)
[2021-05-31] MEDS: PANTOPRAZOLE 40 MG/10 ML VIAL IVP SCH (07:42)
[2021-05-31] MEDS: TAMSULOSIN 0.4 MG CAP.ER.24H PO SCH (07:42)
[2021-05-31] MEDS: ENOXAPARIN 40 MG/0.4 ML SYRINGE SQ SCH (07:42)
[2021-05-31] MEDS: INSULIN ASPART (NovoLOG) 100 UNIT/ML VIAL SQ SCH ×2 (07:42→12:56)
[2021-05-31 11:50] LABS: Glucose,Whole Blood 220 mg/dL (75-99)
[2021-05-31 12:40] LABS: African American GFR (CKD) 91.2 (60.0-200.0); Anion Gap 8.5 mmol/L (4.00-12.00); BUN/Creat Ratio 6.67 Ratio (12.00-20.00); Calcium 8.4 mg/dL (8.7-10.3); Carbon Dioxide 28.5 mmol/L (21.6-31.8); Magnesium 2.2 mg/dL (1.5-2.4); Non-African American GFR(CKD) 78.7 (60.0-200.0); Potassium 4.5 mmol/L (3.5-5.5)
--- NOTE | 2021-05-31 13:56 | P.DS ---
Providers Date of admission: 05/24/21 16:28 Expected date of discharge: 05/31/21 Attending physician: Adrien Roberts Consults: 05/24/21 16:28 Consult Physician Urgent Consulting Provider: Porter Romero Reason/Comments: Medical management Do you want consulting provider notified?: Yes Primary care physician: [facility] Course: Discharge diagnosis 1. Gastric outlet obstruction, paraesophageal hernia, mesoaxial volvulus status post laparoscopic repair of paraesophageal hernia with bile mesh Hospital course his is an 85-year-old male who was a transfer from [place] with complaints of vomiting for the last 2 weeks which he reports has been dark. He has a past medical history of diabetes mellitus, hyperlipidemia, GERD, and large paraesophageal hernia. He was recently admitted to the hospital for dysphagia about 3 weeks ago. At that time on the CT of the abdomen showed questionable gastric outlet obstruction. Patient had EGD showing hiatal hernia gastric obstruction with large amount of fluid in stomach. Patient is status post laparoscopic repair of paraesophageal hernia with bile mesh. Patient tolerated surgery well. He denies any difficulty with swallowing. Upper GI shows no evidence of leak or obstruction per Dr. Roberts. Patient is tolerating diet. His pain is controlled. He is up and ambulating. He is having bowel movements. He is afebrile. He is stable for discharge. Please refer to chart for any further details. Physician Environmental Officer note has been reviewed by physician. Signing provider agrees with the documented findings, assessment, and plan of care. Patient Condition at Discharge: Stable Plan - Discharge Summary Discharge Rx Participant: No New Discharge Prescriptions: Continue Nitroglycerin Sl Tabs [Nitrostat] 0.4 mg SL Q5M PRN PRN Reason: Chest Pain Aspirin EC [Ecotrin Low Dose] 81 mg PO DAILY@0900 Ondansetron [Zofran] 4 mg PO Q6H PRN PRN Reason: Nausea Melatonin 3 mg PO HS PRN tablet PRN Reason: Insomnia Acetaminophen Tab [Tylenol] 650 mg PO Q6HR PRN tab PRN Reason: Mild Pain Or Fever > 100.5 Atorvastatin [Lipitor] 10 mg PO HS@2100 Bisacodyl 5 mg PO Q48H PRN PRN Reason: Constipation traMADol HCl [Ultram] 50 mg PO Q8H PRN PRN Reason: Pain Famotidine [Pepcid] 20 mg PO DAILY@0900 Lactulose [Cephulac] 20 gm PO DAILY PRN ml PRN Reason: Constipation Mag Hydrox/Al Hydrox/Simeth [Maalox] 15 ml PO Q6HR PRN ml PRN Reason: Indigestion Magnesium Hydroxide [Milk of Magnesia Concentrate] 2,400 mg PO DAILY PRN ml PRN Reason: Constipation Calcium Carbonate [Tums] 1,000 mg PO Q4HR PRN tab PRN Reason: Dyspepsia House Supplement 120 ml PO DAILY@1400 Metoclopramide HCl [Reglan] 5 mg PO Q6H PRN PRN Reason: Nausea Pantoprazole Sodium [Protonix] 40 mg PO BID@0900,1700 Tamsulosin HCl [Flomax] 0.4 mg PO DAILY@0900 Discharge Medication List Aspirin EC [Ecotrin Low Dose] 81 mg PO DAILY@0900 08/01/20 [History] Nitroglycerin Sl Tabs [Nitrostat] 0.4 mg SL Q5M PRN 08/01/20 [History] Famotidine [Pepcid] 20 mg PO DAILY@0900 04/30/21 [History] Ondansetron [Zofran] 4 mg PO Q6H PRN 04/30/21 [History] Acetaminophen Tab [Tylenol] 650 mg PO Q6HR PRN tab 05/03/21 [Rx] Calcium Carbonate [Tums] 1,000 mg PO Q4HR PRN tab 05/03/21 [Rx] Lactulose [Cephulac] 20 gm PO DAILY PRN ml 05/03/21 [Rx] Mag Hydrox/Al Hydrox/Simeth [Maalox] 15 ml PO Q6HR PRN ml 05/03/21 [Rx] Magnesium Hydroxide [Milk of Magnesia Concentrate] 2,400 mg PO DAILY PRN ml 05/03/21 [Rx] Melatonin 3 mg PO HS PRN tablet 05/03/21 [Rx] Atorvastatin [Lipitor] 10 mg PO HS@2100 05/24/21 [History] Bisacodyl 5 mg PO Q48H PRN 05/24/21 [History] House Supplement 120 ml PO DAILY@1400 05/24/21 [History] Metoclopramide HCl [Reglan] 5 mg PO Q6H PRN 05/24/21 [History] Pantoprazole Sodium [Protonix] 40 mg PO BID@0900,1700 05/24/21 [History] Tamsulosin HCl [Flomax] 0.4 mg PO DAILY@0900 05/24/21 [History] traMADol HCl [Ultram] 50 mg PO Q8H PRN 05/24/21 [History] Follow up Appointment(s)/Referral(s): Sadie Lewis, [NON-STAFF] - As Needed Josue Salter MD [Primary Care Provider] - 1-2 days Adrien Roberts MD [STAFF PHYSICIAN] - 1 Week Ambulatory/Diagnostic Orders: Basic Metabolic Panel [LAB.AMB] Location: None Selected Complete Blood Count w/diff [LAB.AMB] Location: None Selected Activity/Diet/Wound Care/Special Instructions: No lifting over 10 pounds You may shower. No soaking or tub baths for 2 weeks Very light activity until you are reevaluated at your follow up appointment with your surgeon Discharge Disposition: TRANSFER TO SNF/ECF
[2021-05-31 14:53] VITALS: BP 128/71; PULSE 54; TEMP 98.3
--- NOTE | 2021-05-31 15:07 | P.PN ---
Subjective Progress Note Date: 05/31/21 Progress Note Date: 05/28/21 Principal diagnosis: Gastric outlet obstruction/large paraesophageal hernia; status post repair Aspiration pneumonia is suspected Possible syncope 85 years old male with past medical history of Diabetes Mellitus, GERD/Reflux, Hyperlipidemia. Also there is reports of history of Alzheimer dementia, difficulty walking, weakness. He was sent [facility] for possible GI bleed. Patient had dark emesis per reports. Patient kind of given limited history, also his hard hearing. But he answers appropriately. He is calm. As per report patient came from [facility] with several day history of intermittent nausea and vomiting. He does have some abdominal cramping in the upper area. He thinks he come to the hospital because he feels while he was having lunch which lasted only for a few seconds followed by vomiting. Denies blood but there is dark vomitus. However patient denies chest pain or dyspnea. No coughing. No abdominal pain. He didn't complaints about his bowel movement or urine CAT scan was done and it showed possibly a gastric outlet obstruction. 05/27/2021 Patient is seen and evaluated resting comfortably in bed; denies any complaints of abdominal pain; patient is status post laparoscopic repair of paraesophageal hernia Vital signs are reviewed and stable with a temperature of 97.5, pulse 67, respiration 18 and blood pressure 162/76 Laboratory review shows sodium 135, potassium 3.6, BUN 15 with creatinine of 0. 66, blood glucoses ranging between 204 to 215 Patient has been placed on clear liquid diet and has been tolerating well so far We will plan to resume home medications if patient continues to tolerate oral intake 05/28/2021 Patient is seen and evaluated at bedside; denies any specific complaints; reports diet has been advanced to full liquid and he has been able to tolerate so far Vital signs remained stable; patient underwent fluoroscopy yesterday which did not reveal any leak or obstruction We will continue with current management; patient is recommended increased ac tivity 05/29/2021 Patient is evaluated at the bedside he is sitting up in the chair. Patient denies any chest pain, cough, shortness of breath, palpitations. Patient states that he is still on a clear liquid diet, he denies any nausea or vomiting or diarrhea. Patient is passing gas, he denies any bowel movement this time. Patient is postop day 3 from a laparoscopic hernia repair with mesh. He is ambulating, using his incentive spirometer. Patient is okay for discharge from a medical standpoint, will need a repeat CBC in 2 days to monitor hemoglobin. And a BMP for sodium. Vital signs are stable, temperature 96.9, heart rate 70, blood pressure 114/68, 96% on room air. 05/30/2021 Patient is evaluated today resting in the bed. Per patient he did have a fall this morning around 6 AM. He states that he was sitting up in the chair and had used the bathroom and when he came so he decided to walk himself to the bathroom. He states that he felt weak and fell, he landed on his back and states that he did hit the back of his head on the floor. A brain CT without contrast was ordered and it was negative for an acute intracranial hemorrhage or mass effect. Patient is alert and oriented, negative for focal neural deficits. Because of this primary would like to keep patient for one more night. Plan is for return to when tomorrow. Sodium today is 129, D5 4 5 with potassium has been discontinued please continue patient on normal saline overnight and repeat in the morning. Mag 1.8 replaced per protocol potassium 3.6 replaced per protocol. Hemoglobin remained stable. C. diff is negative, patient denies any further episodes of diarrhea. Patient denies any chest pain, palpitations, cough, shortness of breath. Vital signs remained stable. BP 168/83. 05/31/[address] without contrast was negative for acute intracranial hemorrhage or mass effect. Patient remains alert and oriented 3 overnight, no focal neurological deficits. patient denies any chest pain, palpitations, cough, shortness of breath. He states that his pain is well-controlled. His incisions are intact. he is passing gas, reports a normal bowel movement today. He does have some urinary frequency. he was placed on a external catheter this morning due to urgency. RN will do a postvoid residual to ensure patient is not retaining. Patient is on Flomax same. blood pressure stable 126/73, 94% on room air, afebrile, sinus rhythm 56. Patient is maintained on all home medications. Sodium today is 134 which is improved. ROS Constitutional: Denied any fatigue denied any fever. Cardio vascular: denied any chest pain, palpitations Gastrointestinal denied any nausea vomiting Pulmonary: Denied any shortness of breath cough Neurologic denied any new focal deficits All inpatient medications were reviewed and appropriate changes in these medications as dictated in the interval history and assessment and plan. PHYSICAL EXAMINATION: GENERAL: The patient is alert and oriented x3, not in any acute distress. Well developed, well nourished. HEENT: Pupils are round and equally reacting to light. EOMI. No scleral icterus. No conjunctival pallor. Normocephalic, atraumatic. No pharyngeal erythema. No thyromegaly. CARDIOVASCULAR: S1 and S2 present. No murmurs, rubs, or gallops. PULMONARY: Chest is clear to auscultation, no wheezing or crackles. ABDOMEN: Soft, nontender, nondistended, normoactive bowel sounds. No palpable organomegaly. MUSCULOSKELETAL: No joint swelling or deformity. EXTREMITIES: No cyanosis, clubbing, or pedal edema. NEUROLOGICAL: Gross neurological examination did not reveal any focal deficits. SKIN: No rashes. Assessment and plan Assessment: Possible GI bleed Large hiatal hernia postoperative day #4 laparoscopic hernia repair with mesh gastric outlet obstruction Aspiration pneumonia is suspected Possible syncope Diabetes mellitus History of GERD Hyperlipidemia Plan: This is a pleasant 84 years old male who presents with vomiting and gastric output obstruction is suspected, possible GI bleed and aspiration pneumonia NG tube has been discontinued, patient is tolerating a full liquid diet Monitor hemoglobin and continue with IV Protonix, stable today at 11 Surgery team primary team on the case and following the patient closely. Postop day #4 laparoscopic hernia repair with mesh Hyponatremia, possibly hypervolemic, fluids discontinued and sodium level today is 134. Hypomagnesemia, hypo kalemia, replace per protocol secondary to diarrhea which is improved DVT prophylaxis: No anticoagulation in view of possible GI bleed hemoglobin 11 GI Prophylaxis: PPI Prognosis is guarded Patient is stable for discharge from a medical standpoint. He can return to [facility], follow-up lab work in 3 days. Objective - Vital Signs Vital signs: Vital Signs Temp 98.6 F 05/31/21 07:22 Pulse 56 L 05/31/21 07:22 Resp 18 05/31/21 07:22 BP 126/73 05/31/21 07:22 Pulse Ox 94 L 05/31/21 07:22 Intake & Output 05/30/21 05/31/21 05/31/21 18:59 06:59 18:59 Output Total 2800 Balance -2800 Output: Urine 2800 Other: Voiding Method Urinal Diaper # Voids 6 - Labs CBC & Chem 7: 05/30/21 10:49 05/31/21 07:57 Labs: Abnormal Lab Results - Last 24 Hours (Table) 05/30/21 05/30/21 05/30/21 Range/Units 11:37 16:27 20:56 POC Glucose (mg/dL) 115 H 210 H 129 H (75-99) mg/dL 05/31/21 Range/Units 06:45 POC Glucose (mg/dL) 148 H (75-99) mg/dL
== END 2021-05-31 16:49 | DRG 326 ==
LOC: EC 13:26 → OBSVTOIN 16:28 → 4SSUR 16:28
PROVIDERS: ADMIT Surgery; ATTEND Surgery
PROC: 0D9670Z Drainage of Stomach with Drainage Device, Via Natural or Artificial Opening (ICD-10-PCS; 2021-05-24)
PROC: 0DJ08ZZ Inspection of Upper Intestinal Tract, Via Natural or Artificial Opening Endoscopic (ICD-10-PCS; 2021-05-25)
PROC: 0BUT4JZ Supplement Diaphragm with Synthetic Substitute, Percutaneous Endoscopic Approach (ICD-10-PCS; principal; 2021-05-26 10:05)
DX: K44.0 Diaphragmatic hernia with obstruction, without gangrene (principal); K56.2 Volvulus; J69.0 Pneumonitis due to inhalation of food and vomit; K92.0 Hematemesis; K31.1 Adult hypertrophic pyloric stenosis; K56.41 Fecal impaction; G30.9 Alzheimer's disease, unspecified; E11.9 Type 2 diabetes mellitus without complications; E78.5 Hyperlipidemia, unspecified; F02.80 Dementia in other diseases classified elsewhere, unspecified severity, without behavioral disturbance, psychotic disturbance, mood disturbance, and anxiety; W18.30XA Fall on same level, unspecified, initial encounter; Y92.230 Patient room in hospital as the place of occurrence of the external cause; F32.9 Major depressive disorder, single episode, unspecified; F41.9 Anxiety disorder, unspecified; Z20.822 Contact with and (suspected) exposure to COVID-19; K21.9 Gastro-esophageal reflux disease without esophagitis; Z91.81 History of falling; Z79.82 Long term (current) use of aspirin; Z79.899 Other long term (current) drug therapy; Z80.0 Family history of malignant neoplasm of digestive organs; Z82.49 Family history of ischemic heart disease and other diseases of the circulatory system; Z98.890 Other specified postprocedural states
CPT/HCPCS: 36415; 43235; 70450; 71045; 71046; 74210; 80048; 80053; 81001; 83036; 83735; 83880; 84145; 84484; 85025; 85610; 85730; 87324; 87635; 93005; 93306; 94760; 99285